=== PATIENT | female | born 1955 | race Caucasian/White ===

== ENCOUNTER 2017-07-15 07:05 | Inpatient (IN) | payer OTHER ==
[~2017-07-15] VITALS: Ht 195.6 cm; Wt 80.5 kg
[2017-07-15] VITALS (7 sets, daily range): BP systolic 107–114; BP diastolic 58–68; PULSE 77–80; RESP 19; TEMP 98.6; Ht 195.6 cm; Wt 80.5 kg
[2017-07-15] MEDS ORDERED: ONDANSETRON 4 MG INJ IV STA (07:08)
[2017-07-15] MEDS ORDERED: HYDROmorphONE 1 MG/ML SYG IV STA ×3 (07:08→11:03)
--- NOTE | 2017-07-15 08:14 | RADRPT ---
PROCEDURE: XR Chest 1 View. CLINICAL INDICATION: Abnormal breath sounds, syncope. TECHNIQUE: AP view of the chest was obtained. COMPARISON: None. FINDINGS: The heart size is within normal limits. Calcified atherosclerosis is noted in the aorta. The lungs are hyperexpanded. No consolidations are identified. No pneumothorax is seen. Scarring is noted at the lung apices. Osseous structures are intact. IMPRESSION: Calcified atherosclerosis in the aorta. Hyperexpanded lungs. Scarring at the lung apices. RPTAT: AA .Cody Corey MD, Date Time Electronically viewed and signed by .Cody Corey MD, on 07/15/2017 08:13 .P/
--- NOTE | 2017-07-15 08:15 | RADRPT ---
PROCEDURE: XR Tibia and Fibula 2 Views. CLINICAL INDICATION: Right lower leg pain and trauma. TECHNIQUE: AP and lateral views of the right tibia and fibula were obtained. COMPARISON: No prior studies are available for comparison. FINDINGS: Mildly displaced fracture through the mid and distal tibial diaphysis is observed. Obliquely orient ed, mildly displaced fracture through the proximal fibular diaphysis is observed. No destructive [place] lesions are identified. Interosseous spaces appear grossly preserved. Soft tissues surrounding the tibia and fibula are unremarkable. IMPRESSION: Mid and distal tibial fracture and proximal fibular fracture. If there is high clinical suspicion for additional traumatic injury, further evaluation with CT shou ld be considered. RPTAT: AA .Cody Corey MD, Date Time Electronically viewed and signed by .Cody Corey MD, MD on 07/15/2017 08:15 .P/
[2017-07-15 08:34] LABS: ABNORMAL IP MESSAGE 1; HEMOGLOBIN 11.7 g/dl (12.0-16.0); MEAN CORPUSCULAR HEMOGLOBIN 27.1 pg (29.0-33.0); MEAN CORPUSCULAR HGB CONC 32.5 g/dl (32.0-37.0); MEAN CORPUSCULAR VOLUME 83.3 fl (82.0-101.0); MEAN PLATELET VOLUME 10.6 fl (7.4-10.4); PLATELET COUNT 249 10^3/UL (140-415); RED BLOOD COUNT 4.32 10^6/ul (4.20-5.40); RED CELL DISTRIBUTION WIDTH 12.7 % (11.5-14.5); WHITE BLOOD COUNT 11.6 10^3/ul (4.8-10.8)
[2017-07-15 08:59] LABS: ANION GAP 19 (8-16); BLOOD UREA NITROGEN 18 mg/dl (7-20); CARBON DIOXIDE 24 mmol/L (21-31); CHLORIDE 102 mmol/L (97-110); CREATININE 0.62 mg/dl (0.44-1.00); GLUCOSE 135 mg/dl (70-220); POTASSIUM 4.1 mmol/L (3.5-5.1); SODIUM 141 mmol/L (135-144)
[2017-07-15 09:29] LABS: TROPONIN-I < 0.012 ng/ml (0.00-0.12)
[2017-07-15] MEDS ORDERED: CALC-277 PO (10:34)
[2017-07-15] MEDS ORDERED: PRAV10TA43 PO (10:35)
[2017-07-15] MEDS ORDERED: RANI150T5 PO (10:35)
[2017-07-15] MEDS ORDERED: LISI-313 PO (10:35)
[2017-07-15] MEDS ORDERED: ASPI-664 PO (10:36)
[2017-07-15] MEDS ORDERED: LETR2.5T PO (10:36)
[2017-07-15] MEDS ORDERED: CHOL10009 PO (10:37)
[2017-07-15] MEDS ORDERED: DULO30CA45 PO (10:37)
[2017-07-15] MEDS ORDERED: ALEN70TA30 PO (10:47)
--- NOTE | 2017-07-15 10:50 | ERA ---
ER Documentation Chief Complaint Date/Time DATE: 07/15/17 TIME: 10:46 Chief Complaint WITNESSED SYNCOPAL EPISODE AND FELL. RIGHT LOWER LEG PAIN WITH DEFORMITY HPI 62-year-old female presents the emergency department after a syncopal episode complaining of right leg pain. Patient was in her usual state of health until this morning at which time she awoke with acute syncopal episode. She had no chest pain or shortness of breath prior to the episode and reported no palpitations. However, her family witnessed her pass out. She fell onto the side of her bed and hurt her right leg. She has been complaining of severe right leg pain since that time. She reports no distal numbness or tingling. I have reviewed the supervisor boat outfitting pre-hospital care. Pre-hospital vital signs were reviewed. Pre-hospital diagnostic tests were reviewed. Upon arrival, patient's main complaint is that of leg pain. ROS All systems reviewed and are negative except as per history of present illness. Medications Home Meds Reported Medications Cholecalciferol (Vitamin D3) 1,000 Unit Capsule, 2000 UNIT PO DAILY, CAP 07/15/17 Duloxetine Hcl* (Cymbalta*) 30 Mg Capsule.dr, 30 MG PO DAILY, CAP 07/15/17 Letrozole* (Letrozole*) 2.5 Mg Tablet, 2.5 MG PO DAILY, TAB 07/15/17 Aspirin (Low Dose Aspirin) 81 Mg Tablet.dr, 81 MG PO DAILY, #30 TAB 07/15/17 Pravastatin Sodium* (Pravastatin Sodium*) 10 Mg Tablet, 10 MG PO HS, TAB 07/15/17 Ranitidine Hcl* (Ranitidine Hcl*) 150 Mg Tablet, 150 MG PO Q12, #60 TAB 07/15/17 Lisinopril* (Lisinopril*) 5 Mg Tablet, 5 MG PO DAILY, #30 TAB 07/15/17 Calcium Carbonate/Vitamin D3 (OYSTER SHELL 500 MG + VIT D TB) 1 Each Tablet, 1 EACH PO BID, TAB 07/15/17 Allergies Allergies: Coded Allergies: No Known Allergy (Unverified , 07/15/17) PMhx/Soc Hx Miscellaneous Medical Probl: Yes (left breast mastectomy. ) Hx Alcohol Use: No Hx Substance Use: No Hx Tobacco Use: No Smoking Status: Never smoker FmHx Noncontributory for chief complaint Physical Exam Vitals Vital Signs Date Time Temp Pulse Resp B/P Pulse Ox O2 Delivery O2 Flow Rate FiO2 07/15/17 09:03 98.6 71 21 105/78 98 Room Air 07/15/17 07:08 98.0 72 21 160/68 98 Physical Exam GENERAL: The patient is well developed and appropriate for usual state of health in no apparent distress HEENT: Pupils equal, round, and reactive to light. EOMI. There is no scleral icterus. NECK: C-spine is soft and supple, there is no meningismus. There is no cervical lymphadenopathy. LUNGS: Clear to auscultation bilaterally. There are no rales, wheezes or rhonchi. HEART:Irregularly irregular rate and rhythm with a murmur over the precordium ABDOMEN: Soft, non-tender, non-distended. There are bowel sounds in all four quadrants. No rebound or guarding. EXTREMITIES: Patient has an obvious deformity about the midshaft right tibia. Skin is intact, compartments are soft and compressible. She is neurovascularly intact. All other extremities appear to be normal. NEURO: The patient moves all four extremities with 5/5 strength. Cranial nerves II - XII are intact. Normal gait. Alert and oriented SKIN: There is no apparent rash or petechiae. HEME/LYMPHATIC: There is no evidence of excessive bruising or lymphedema. PSYCHIATRIC: The patient does not appear anxious or depressed. Result Diagram: 07/15/17 0708 07/15/17 0715 Results 24 hrs Laboratory Tests Test 07/15/17 07:08 07/15/17 07:15 White Blood Count 11.610^3/ul Red Blood Count 4.3210^6/ul Hemoglobin 11.7g/dl Hematocrit 36.0% Mean Corpuscular Volume 83.3fl Mean Corpuscular Hemoglobin 27.1pg Mean Corpuscular Hemoglobin Concent 32.5g/dl Red Cell Distribution Width 12.7% Platelet Count 82769^3/UL Mean Platelet Volume 10.6fl Neutrophils % % Lymphocytes % % Monocytes % % Eosinophils % % Basophils % % Nucleated Red Blood Cells % 0.0/100WBC Neutrophils # (Manual) 4.510^3/ul Lymphocytes # 10^3/ul Monocytes # 10^3/ul Eosinophils # 10^3/ul Basophils # 10^3/ul Nucleated Red Blood Cells # 10^3/ul Sodium Level 141mmol/L Potassium Level 4.1mmol/L Chloride Level 102mmol/L Carbon Dioxide Level 24mmol/L Anion Gap 19 Blood Urea Nitrogen 18mg/dl Creatinine 0.62mg/dl Glucose Level 135mg/dl Calcium Level 10.0mg/dl Troponin I < 0.012ng/ml Current Medications Medications (Trade) Dose Ordered Sig/Romeo Route PRN Reason Start Time Stop Time Status Last Admin Dose Admin Hydromorphone HCl (Dilaudid) 1 mg ONCE STAT IV 07/15/17 07:08 07/15/17 07:12 DC 07/15/17 07:20 Ondansetron HCl (Zofran Inj) 4 mg ONCE STAT IV 07/15/17 07:08 07/15/17 07:12 DC 07/15/17 07:20 Hydromorphone HCl (Dilaudid) 1 mg ONCE STAT IV 07/15/17 08:35 07/15/17 08:36 DC 07/15/17 09:03 Procedures/MDM Patient was taken to a room, seen and evaluated. Comfort measures were initiated. Diagnostic tests were ordered and reviewed. 3 LEAD RHYTHM STRIP: Atrial fibrillation EK lead EKG reviewed by myself: Atrial fibrillation at 120 bpm Left axis deviation Nonspecific ST and T-wave changes without ST elevation Impression: Atrial fibrillation without ST elevation RADIOLOGY: reviewed with the radiologist CONSULTATION: hospitalist was notified for admission, orthopedic consultation was requested REEVALUATION: Procedure: Immobilization/splinting Patient was placed into a posterior molded long leg splint. Patient was neurovascularly intact after immobilization. After mobilization and pain control, patient seemed much improved. She remained hemodynamically stable. However, she remained in need of cardiac monitoring and therefore did not feel stable for transfer MEDICAL DECISION MAKIN-year-old female presents the emergency department after a syncopal episode. Given the patient's atrial fibrillation, I am concerned that this may represent cardiogenic syncope. Patient will require admission. Patient does not appear to be acutely ischemic at this time. From a trauma standpoint, patient has evidence of a midshaft tibia fracture that has been immobilized. Orthopedic consultation has been requested and this may be require operative management. Patient remains neurovascularly intact and this is a closed injury. Fortunately, I see no indication of other traumatic injury. At this time, patient will be admitted. Departure Diagnosis: Primary Impression: Syncope Additional Impression: Tibia fracture Condition: CALEB Dela Cruz Jul 15, 2017 10:50
[2017-07-15 11:55] LABS: LYMPHOCYTES # 6.1 10^3/ul (0.8-2.9); MONOCYTE # 0.7 10^3/ul (0.3-0.9); MONOCYTES % (M) 6 % (0-11)
[2017-07-15 11:56] LABS: BURR CELLS FEW
[2017-07-15] MEDS ORDERED: morphine 4 MG/ML VIAL IV PRN (13:30)
[2017-07-15] MEDS: morphine 4 MG/ML VIAL IV PRN ×2 (13:46→17:51)
[2017-07-15] MEDS ORDERED: ACETAMINOPHEN 325 MG TAB PO PRN (14:30)
[2017-07-15] MEDS ORDERED: NACL 0.9% 3 ML SYG IV SCH (14:30)
[2017-07-15] MEDS ORDERED: ONDANSETRON 4 MG INJ IV PRN (14:30)
[2017-07-15] MEDS ORDERED: morphine 2 MG INJ IV PRN (14:30)
[2017-07-15] MEDS: DULOXETINE 30 MG CAP DR PO SCH (16:10)
[2017-07-15] MEDS: CHOLECALCIFEROL 1,000 UNIT TAB PO SCH (16:50)
[2017-07-15] MEDS: ASPIRIN (EC) 81 MG TAB PO SCH (16:50)
[2017-07-15] MEDS: LISINOPRIL 5 MG TAB PO SCH (16:50)
--- NOTE | 2017-07-15 16:51 | HP ---
Date/Time of Note Date/Time of Note DATE: 07/15/17 TIME: 16:44 Assessment/Plan VTE Prophylaxis VTE Prophylaxis Intervention: SCD's Lines/Catheters IV Catheter Type (from Nrsg): Saline Lock Assessment/Plan Assessment/Plan 1. Right tibia and fibula fracture: Status post fall -Patient was evaluated by Dr. Finley in the ER and was cleared. Both patient and family requesting a second opinion with another orthopedic surgeon -Continue pain management 2. Hypertension: Blood pressure within goal -PMH is adjustment as needed 3. History of dyslipidemia -Continue home med 4. History of breast cancer, status post mastectomy -Continue hormonal therapy HPI/ROS Admit Date/Time Admit Date/Time Jul 15, 2017 at 13:27 Hx of Present Illness This is a 62-year-old female with a history of hypertension, dyslipidemia, osteoporosis and breast cancer status post mastectomy who presented to the emergency department complaining of right lower extremity pain status post fall. She is accompanied by a family member at the bedside who also provided history. She said she had been having pain on her lower extremities which she actually states is a result of claudication. While she was walking to the bathroom, she fell pain on her lower extremities and stated that the right leg was almost frozen. She also felt lightheaded and fell to the floor. She stated that she was unconscious for some time. Denied hitting her head. She actually said the reason why she syncopized was a result of the pain on her leg as opposed to the lightheadedness. Denied chest pain, palpitations, shortness of breath, fever, chills, nausea or vomiting. When she presented to the ER, right lower extremity x-ray shows need in the distal tibia and proximal fibula fracture. Chest x-ray showed hyperexpanded lungs. Vitals were stable. Labs shows a WBC of 11.6 otherwise CBC and BMP were within acceptable range. . PMH/Family/Social Past Medical History Medical History: high cholesterol, hypertension, other (Breast cancer) Past Surgical History Past Surgical Hx: appendectomy, other (Mastectomy, hernia repair and tonsillectomy) Social History Alcohol Use: none Smoking Status: Never smoker Drug Use: none Exam/Review of Systems Vital Signs Vitals Vital Signs Date Time Temp Pulse Resp B/P Pulse Ox O2 Delivery O2 Flow Rate FiO2 07/15/17 16:06 78 07/15/17 15:54 98.2 19 114/68 98 07/15/17 14:04 Nasal Cannula 2.0 Exam Constitutional: other (In the mild distress due to pain) Head: atraumatic, normocephalic Eyes: EOMI, PERRL Respiratory: clear to auscultation, normal air movement Cardiovascular: nl pulses, regular rate and rhythm Gastrointestinal: non-tender, soft Extremities: other (Right lower extremity is covered. Sensations are intact in her toes) Labs Result Diagram: 07/15/17 0708 07/15/17 0715 Medications Medications Current Medications Morphine Sulfate (morphine) 3 mg Q4H PRN IV PAIN Last administered on t 13:46; Admin Dose 3 MG; Start 07/15/17 at 13:40 Ondansetron HCl (Zofran Inj) 4 mg Q6H PRN IV NAUSEA AND/OR VOMITING; Start at 14:30 Acetaminophen (Tylenol Tab) 650 mg Q6H PRN PO PAIN LEVEL 1-3 OR FEVER; Start at 14:30 Aspirin (Halfprin) 81 mg DAILY PO ; Start 07/15/17 at 15:00 Cholecalciferol (Vitamin D) 2,000 unit DAILY PO ; Start 07/15/17 at 15:00 Duloxetine HCl (Cymbalta) 30 mg DAILY PO ; Start 07/15/17 at 15:00 Letrozole (Femara) 2.5 mg DAILY PO ; Start 07/15/17 at 16:00 Lisinopril (Zestril) 5 mg DAILY PO ; Start 07/15/17 at 15:00 Ranitidine HCl (Zantac) 150 mg Q12 PO ; Start 07/15/17 at 21:00 Atorvastatin Calcium (Lipitor) 10 mg DAILY@21 PO ; Start 07/15/17 at 21:00 LIZZ JEFF MD Jul 15, 2017 16:51
[2017-07-15] MEDS: LETROZOLE 2.5 MG TAB PO SCH (17:01)
--- NOTE | 2017-07-15 17:24 | RADRPT ---
PROCEDURE: CT Brain without contrast. CLINICAL INDICATION: SYNCOPE, FALL TECHNIQUE: A CT of the brain was performed on a multidetector CT scanner utilizing axial imaging f rom the skull base through the vertex without IV contrast. Multiplanar reformatted images were made . Images were reviewed on a PACS workstation. The CTDIvol is 40 mGy and the DLP is 768 mGycm. COMPARISON: None FINDINGS: There is no intracranial hemorrhage, mass effect, or midline shift. No extra-axial fluid collection is seen. The ventricles and sulci are normal in size and configuration. The density of the brain is normal, and the franklin white matter differentiation appears well-preserved. The visualized paranasal sinuses and osseous structures are grossly unremarkable. IMPRESSION: 1. No evidence of acute intracranial pathology. 2. The brain is normal in appearance. .Tony Ivey MD, MD Date Time Electronically viewed and signed by .Tony Ivey MD, on 07/15/2017 17:24 .A/
[2017-07-15] MEDS ORDERED: NON-FORMULARY/PATIENT OWN MED (Pravastatin Sodium* 10 MG) PO SCH (21:00)
[2017-07-15] MEDS: HYDROmorphONE 1 MG/ML SYG IV PRN (21:19)
[2017-07-15] MEDS: RANITIDINE 150 MG TAB PO SCH (21:19)
[2017-07-15] MEDS: ATORVASTATIN 10 MG TAB PO SCH (21:19)
[2017-07-16] VITALS (13 sets, daily range): BP systolic 100–112; BP diastolic 56–63; PULSE 65–74; RESP 18–20
[2017-07-16] MEDS: HYDROmorphONE 1 MG/ML SYG IV PRN ×4 (02:16→18:38)
[2017-07-16 07:02] LABS: BASOPHILS % 0.1 % (0.0-2.0); EOSINOPHILS % 0.3 % (0.0-7.0); HEMATOCRIT 35.7 % (37.0-47.0); HEMOGLOBIN 11.2 g/dl (12.0-16.0); LYMPHOCYTES # 2.1 10^3/ul (0.8-2.9); LYMPHOCYTES % 28.3 % (15.0-51.0); MEAN CORPUSCULAR HEMOGLOBIN 26.2 pg (29.0-33.0); MEAN CORPUSCULAR HGB CONC 31.4 g/dl (32.0-37.0); MEAN CORPUSCULAR VOLUME 83.6 fl (82.0-101.0); MEAN PLATELET VOLUME 10.3 fl (7.4-10.4); MONOCYTE # 0.6 10^3/ul (0.3-0.9); MONOCYTES % 7.8 % (0.0-11.0); NEUTROPHILS % 63.2 % (39.0-77.0); PLATELET COUNT 206 10^3/UL (140-415); RED BLOOD COUNT 4.27 10^6/ul (4.20-5.40); WHITE BLOOD COUNT 7.3 10^3/ul (4.8-10.8)
[2017-07-16 07:53] LABS: CALCIUM 9.4 mg/dl (8.4-10.2); CREATININE 0.63 mg/dl (0.44-1.00); POTASSIUM 4.6 mmol/L (3.5-5.1)
[2017-07-16 07:58] LABS: ALBUMIN/GLOBULIN RATIO 1.48; BILIRUBIN,INDIRECT 0.3 mg/dl (0-1.1); BILIRUBIN,TOTAL 0.3 mg/dl (0.2-1.3); CALCIUM 9.5 mg/dl (8.4-10.2); CHOL/HDL RATIO 3.5 RATIO; CREATININE 0.63 mg/dl (0.44-1.00); POTASSIUM 4.9 mmol/L (3.5-5.1); TOTAL PROTEIN 6.7 g/dl (6.1-8.1)
--- NOTE | 2017-07-16 08:37 | RADRPT ---
PROCEDURE: US Carotids. CLINICAL INDICATION: Hypertension, syncope TECHNIQUE: Multiple sonographic of the carotid arteries were obtained utilizing franklin scale imaging . Color and Doppler imaging was performed. The images were reviewed on a PACS workstation. COMPARISON: No prior studies are available for comparison. FINDINGS: LocationRightLeft CCA74 cm/sec71 cm/sec Prox ICA77 cm/byg307 cm/sec Mid ICA76 cm/tzy063 cm/sec Dist ICA62 cm/pus186 cm/sec ECA79 cm/sec87 cm/sec ICA/CCA1.02.3 Antegrade flow is seen within the vertebral arteries bilaterally. Mild atherosclerotic plaque is see n within the bilateral common and internal carotid arteries. IMPRESSION: 1. Elevated systolic velocities are identified within the left mid/distal ICA, consistent with 50-6 9% stenosis in this area by S R U criteria. 2. There is no evidence for hemodynamically significant stenosis or occlusion on the right. 3. Antegrade flow seen within the vertebral arteries bilaterally. Validated velocity measurements with angiographic measurements, velocity criteria are extrapolated f rom diameter data as defined by the Society of Radiologists in Ultrasound Consensus Conference (Radi ology 2003; 229; 340-346). This study does indirectly reference the measurement of the distal ICA d iameter as the denominator for stenosis measurement. RPTAT: PP .Humza Carver MD, Date Time Electronically viewed and signed by .Humza Carver MD, on 07/16/2017 08:37 .R/
[2017-07-16 10:26] LABS: THYROID STIMULATING HORMONE 0.735 MIU/L (0.465-4.680)
[2017-07-16] MEDS: DULOXETINE 30 MG CAP DR PO SCH (11:22)
[2017-07-16] MEDS: ASPIRIN (EC) 81 MG TAB PO SCH (11:23)
[2017-07-16] MEDS: CHOLECALCIFEROL 1,000 UNIT TAB PO SCH (11:23)
[2017-07-16] MEDS: RANITIDINE 150 MG TAB PO SCH ×2 (11:25→21:08)
[2017-07-16] MEDS: LETROZOLE 2.5 MG TAB PO SCH (11:25)
[2017-07-16] MEDS: LISINOPRIL 5 MG TAB PO SCH (11:26)
[2017-07-16] MEDS ORDERED: HYDROCODONE/APAP (5/325) TAB PO PRN (11:30)
--- NOTE | 2017-07-16 11:44 | PN ---
Date/Time of Note Date/Time of Note DATE: 07/16/17 TIME: 11:39 Assessment/Plan VTE Prophylaxis VTE Prophylaxis Intervention: heparin Lines/Catheters IV Catheter Type (from Nrsg): Saline Lock Urinary Cath still in place: Yes Reason Cath still needed: other (indicate) (s/p Fall with Tibia fibula fracture ) Assessment/Plan Assessment/Plan 1. Right tibia and fibula fracture: Status post fall -Patient was evaluated by Dr. Finley in the ER and was cleared. Both patient and family requesting a second opinion with another orthopedic surgeon- for that orthopedic Surgery has been consulted -Continue pain management- pain not controlled with current regimen, will increase dialudid to 1 mg Q 4hr, add norco 5/325 Q 6 hr prn moderate pain, add robaxin 500mg BID for muslce relaxant 2. Hypertension: Blood pressure within goal -PMH is adjustment as needed 3. History of dyslipidemia -Continue home med 4. History of breast cancer, status post mastectomy -Continue hormonal therapy DVT prophylaxis: Heparin Subjective 24 Hr Interval Summary Free Text/Dictation c/o pain not controlled with current regimen, Awaiting second opinion of orhtopedic, BP controlled Exam/Review of Systems Vital Signs Vitals Vital Signs Date Time Temp Pulse Resp B/P Pulse Ox O2 Delivery O2 Flow Rate FiO2 07/16/17 11:33 98.2 68 19 112/61 98 07/15/17 20:00 Nasal Cannula 2.0 Intake and Output 07/15/17 07/15/17 07/16/17 15:00 23:00 07:00 Intake Total 150 ml 100 ml Output Total 100 ml 600 ml Balance 50 ml -500 ml Exam Constitutional: other (In the mild distress due to pain) Head: atraumatic, normocephalic Eyes: EOMI, PERRL Respiratory: clear to auscultation, normal air movement Cardiovascular: nl pulses, regular rate and rhythm Gastrointestinal: non-tender, soft Extremities: other (Right lower extremity is covered. Sensations are intact in her toes) Results Result Diagram: 07/16/17 0538 07/16/17 0538 Results 24 hrs Laboratory Tests Test 07/15/17 15:50 07/15/17 20:30 07/16/17 05:38 Troponin I < 0.012 < 0.012 White Blood Count 7.3 # Red Blood Count 4.27 Hemoglobin 11.2 L Hematocrit 35.7 L Mean Corpuscular Volume 83.6 Mean Corpuscular Hemoglobin 26.2 L Mean Corpuscular Hemoglobin Concent 31.4 L Red Cell Distribution Width 13.0 Platelet Count 206 Mean Platelet Volume 10.3 Neutrophils % 63.2 Lymphocytes % 28.3 Monocytes % 7.8 Eosinophils % 0.3 Basophils % 0.1 Nucleated Red Blood Cells % 0.0 Neutrophils # (Manual) 4.6 Lymphocytes # 2.1 Monocytes # 0.6 Eosinophils # 0.0 Basophils # 0.0 Nucleated Red Blood Cells # 0.0 Sodium Level 142 Potassium Level 4.9 Chloride Level 99 Carbon Dioxide Level 27 Anion Gap 21 H Blood Urea Nitrogen 17 Creatinine 0.63 Glucose Level 118 Hemoglobin A1c 6.0 H Calcium Level 9.5 Total Bilirubin 0.3 Direct Bilirubin 0.00 Indirect Bilirubin 0.3 Aspartate Amino Transf (AST/SGOT) 40 Alanine Aminotransferase (ALT/SGPT) 78 H Alkaline Phosphatase 83 Total Protein 6.7 Albumin 4.0 Globulin 2.70 Albumin/Globulin Ratio 1.48 Triglycerides Level 85 Cholesterol Level 204 H LDL Cholesterol, Calculated 129 HDL Cholesterol 58 Cholesterol/HDL Ratio 3.5 Thyroid Stimulating Hormone (TSH) 0.735 Medications Medications Current Medications Ondansetron HCl (Zofran Inj) 4 mg Q6H PRN IV NAUSEA AND/OR VOMITING; Start at 14:30 Acetaminophen (Tylenol Tab) 650 mg Q6H PRN PO PAIN LEVEL 1-3 OR FEVER; Start at 14:30 Aspirin (Halfprin) 81 mg DAILY PO Last administered on 07/16/17 11:23; Admin Dose 81 MG; Start 07/15/17 at 15:00 Cholecalciferol (Vitamin D) 2,000 unit DAILY PO Last administered on 07/16/17 11:23; Admin Dose 2,000 UNIT; Start 07/15/17 at 15:00 Duloxetine HCl (Cymbalta) 30 mg DAILY PO Last administered on 07/16/17 11:22; Admin Dose 30 MG; Start 07/15/17 at 15:00 Letrozole (Femara) 2.5 mg DAILY PO Last administered on 07/16/17 11:25; Admin Dose 2.5 MG; Start 07/15/17 at 16:00 Lisinopril (Zestril) 5 mg DAILY PO Last administered on 07/16/17 11:26; Admin Dose 5 MG; Start 07/15/17 at 15:00 Ranitidine HCl (Zantac) 150 mg Q12 PO Last administered on 07/16/17 11:25; Admin Dose 150 MG; Start 07/15/17 at 21:00 Atorvastatin Calcium (Lipitor) 10 mg DAILY@21 PO Last administered on 21:19; Admin Dose 10 MG; Start 07/15/17 at 21:00 Hydromorphone HCl (Dilaudid) 1 mg Q4H PRN IV PAIN; Start 07/16/17 at 12:30 Acetaminophen/ Hydrocodone Bitart (Bozman (5/325)) 1 tab Q6H PRN PO Pain Last administered on 07/16/17 11:38; Admin Dose 1 TAB; Start 07/16/17 at 11:30 Methocarbamol (Robaxin) 500 mg BID PO ; Start 07/16/17 at 12:00; Stop 07/18/17 at 11:59 ABBI CARTER MD Jul 16, 2017 11:44
[2017-07-16] MEDS ORDERED: METHOCARBAMOL 500 MG TAB PO SCH (12:00)
[2017-07-16] MEDS ORDERED: METOCLOPRAMIDE 10 MG INJ IV ONE (12:00)
[2017-07-16] MEDS ORDERED: D5W-0.45 NACL + KCL 10 MEQ 1,000 ML IV SCH (13:00)
[2017-07-16] MEDS: HEPARIN 5,000 UNIT/0.5 ML VIAL SC SCH ×2 (13:01→21:16)
--- NOTE | 2017-07-16 14:57 | CONS ---
DATE OF ADMISSION: 07/15/2017 DATE OF CONSULTATION: 07/16/2017 HISTORY OF PRESENT ILLNESS: The patient is a 62-year-old female, who was admitted on the June,, when she came to the emergency room complaining of pain, swelling, and deformity involving her right leg. According to the patient, she was experiencing some pain in her right leg, possibly from claudication, and she felt a pain while she was on her way to her bathroom and fell. She denies any head injury. However, she claims that she was unconscious for a while. Following the incident, she was having severe pain and swelling involving her right leg, and she was brought into the emergency room She is known to have breast cancer, which was treated with mastectomy, and has been doing okay without any recurrence. She is also known to have history of hypertension and dyslipidemia and osteoporosis. PHYSICAL EXAMINATION: GENERAL APPEARANCE: My examination revealed a 62-year-old female who was not in any acute distress. EXTREMITIES: Her right lower extremity was immobilized in a long leg posterior splint, and examination through the splint revealed a tenderness and swelling involving the right leg. There was a tenderness over the distal shaft of the right leg, right tibia. There is no evidence of acute neurovascular compromise at this time. DIAGNOSTIC DATA: X-rays of the right leg revealed a spiral fracture involving the distal shaft of the right tibia with some of the fracture line extending downward. DIAGNOSTIC IMPRESSION: Spiral fracture of the distal shaft of the right tibia. PLAN: Recommendation for treatment is ORIF of the fracture of the right tibia, probably utilizing intramedullary nailing technique. This patient was seen by me for a second opinion. I recommended the patient to have the surgery done as recommended. Dictated By: In Sandra Campbell MD /main/[facility] /Document#: [id number]
--- NOTE | 2017-07-16 15:21 | CONS ---
DATE OF ADMISSION: 07/15/2017 DATE OF CONSULTATION: 07/16/2017 CHIEF COMPLAINT: Right leg pain. HISTORY OF PRESENT ILLNESS: This is a 62-year-old female with multiple medical comorbidities who had a syncopal episode at home and fell. She is complaining of pain in the right leg. She was unable to ambulate. She was brought by EMS to the emergency department. She denies any chest pain prior to the fall. She has no other complaints. PAST MEDICAL HISTORY: Dyslipidemia, hypertension, osteoporosis, breast cancer. MEDICATIONS: Cymbalta, Zestril, Lipitor. PAST SURGICAL HISTORY: Appendectomy and mastectomy, hernia repair, tonsillectomy. SOCIAL HISTORY: Lives with her spouse. Denies tobacco, alcohol, or drug use. FAMILY HISTORY: Noncontributory. ALLERGIES: NO KNOWN DRUG ALLERGIES. REVIEW OF SYSTEMS: Negative except per HPI. PHYSICAL EXAMINATION: VITAL SIGNS: Temperature 98.2, blood pressure 114/68, pulse 78, respiratory rate 19. GENERAL: Patient is in no acute distress. She is resting comfortably in bed. EXTREMITIES: Right lower extremity there are no open wounds. There is deformity of the right leg. She has a palpable dorsalis pedis and posterior tibialis pulses. She is tender to palpation over the midshaft of the tibia. IMAGING: X-rays right tibia and fibula; there is a spiral midshaft tibia fracture with displacement. There is a fracture of the proximal fibula. IMPRESSION: A 62-year-old female who had syncope with a right midshaft tibia fracture. PLAN: The patient was placed in a short-leg splint. She will be nonweightbearing on the right lower extremity. I discussed treatment options with the patient and her family. I discussed nonoperative treatment including long-leg casting versus operative treatment including intramedullary nailing. I discussed the risks associated with surgery, which include but are not limited to, infection, deep venous thrombosis, pulmonary embolism, knee pain, malunion, nonunion, need for revision surgery, heart attack, stroke, need for blood transfusion, risks associated with anesthesia and even . The patient and family would like to think about treatment options. All questions were answered to their satisfaction. Dictated By: Viji Ron MD /main/[facility] /Document#: [id number]
[2017-07-16] MEDS: ATORVASTATIN 10 MG TAB PO SCH (21:08)
[2017-07-17] VITALS (14 sets, daily range): BP systolic 110–130; BP diastolic 64–72; PULSE 61–85; RESP 16–19
[2017-07-17] MEDS: HYDROmorphONE 1 MG/ML SYG IV PRN ×6 (00:06→18:40)
[2017-07-17] MEDS: D5W-0.45 NACL + KCL 20 MEQ 1,000 ML IV SCH ×2 (00:06→10:00)
[2017-07-17 06:26] LABS: BASOPHILS % 0.1 % (0.0-2.0); EOSINOPHILS % 0.6 % (0.0-7.0); HEMATOCRIT 31.3 % (37.0-47.0); HEMOGLOBIN 9.9 g/dl (12.0-16.0); LYMPHOCYTES # 2.5 10^3/ul (0.8-2.9); LYMPHOCYTES % 35.3 % (15.0-51.0); MEAN CORPUSCULAR HEMOGLOBIN 26.5 pg (29.0-33.0); MEAN CORPUSCULAR HGB CONC 31.6 g/dl (32.0-37.0); MEAN CORPUSCULAR VOLUME 83.9 fl (82.0-101.0); MEAN PLATELET VOLUME 10.3 fl (7.4-10.4); MONOCYTE # 0.7 10^3/ul (0.3-0.9); MONOCYTES % 9.4 % (0.0-11.0); NEUTROPHILS % 54.2 % (39.0-77.0); PLATELET COUNT 180 10^3/UL (140-415); RED BLOOD COUNT 3.73 10^6/ul (4.20-5.40); RED CELL DISTRIBUTION WIDTH 12.7 % (11.5-14.5)
[2017-07-17 06:29] LABS: INR 1.02; PARTIAL THROMBOPLASTIN TIME 25.8 Sec (25.0-35.0); PROTIME 13.4 Sec (12.2-14.2)
[2017-07-17 06:59] LABS: ALBUMIN 3.5 g/dl (3.3-4.9); ALBUMIN/GLOBULIN RATIO 1.2; BILIRUBIN,INDIRECT 0.2 mg/dl (0-1.1); BILIRUBIN,TOTAL 0.2 mg/dl (0.2-1.3); CALCIUM 9.1 mg/dl (8.4-10.2); CREATININE 0.52 mg/dl (0.44-1.00); POTASSIUM 4.3 mmol/L (3.5-5.1); TOTAL PROTEIN 6.4 g/dl (6.1-8.1)
[2017-07-17] MEDS: ASPIRIN (EC) 81 MG TAB PO SCH (09:00)
[2017-07-17] MEDS: DULOXETINE 30 MG CAP DR PO SCH (09:00)
[2017-07-17] MEDS: RANITIDINE 150 MG TAB PO SCH ×2 (09:00→21:00)
[2017-07-17] MEDS: CHOLECALCIFEROL 1,000 UNIT TAB PO SCH (09:00)
[2017-07-17] MEDS: LISINOPRIL 5 MG TAB PO SCH (09:00)
[2017-07-17] MEDS: LETROZOLE 2.5 MG TAB PO SCH (09:00)
[2017-07-17] MEDS: HEPARIN 5,000 UNIT/0.5 ML VIAL SC SCH (09:00)
[2017-07-17] MEDS ORDERED: CEFAZOLIN 1 GM/50 ML (PMX) 50 ML IVPB ONE (12:00)
--- NOTE | 2017-07-17 13:06 | RADRPT ---
Echocardiogram Report Patient Name: AUSTIN STILES Gender: Female Date: 1955 Study Date: 16-Jul-2017 Turbine Engineer: Hanna Agustin [facility] Location: 521 Ref. Physician: LIZZ JEFF Quality: Good Procedures: Transthoracic echocardiogram with complete 2D, M-Mode, and doppler examination. Indications: Syncope. 2D/M Mode Doppler Measurement Value Normal Ranges Measurement Value Normal Ranges LVIDd 2D 4.1 3.5 - 5.6 cm AV Peak Tay 1.2 m/sec LVIDs 2D 2.1 2.1 - 4.1 cm AV Peak PG 6.0 mmHg FS 2D 47.5 % LVOT Peak Tay 1.0 m/sec LVPWd 2D 0.9 0.6 - 1.1 cm LVOT Peak PG 4.0 mmHg IVSd 2D 0.9 0.6 - 1.1 cm MV E Peak Tay 0.8 m/sec IVS/LVPW 2D 1.0 MV A Peak Tay 1.0 m/sec AoR Diam 2D 3.0 2.0 - 3.7 cm MV E/A 0.8 LA/Ao 2D 1 0 - 1 MV Decel Time 215 msec EDV 2D 67.9 cm3 MV E/A 0.8 ESV 2D 9.8 cm3 TR Peak Tay 2.4 m/sec LA Dimen 2D 3.1 2.3 - 4.0 cm TR Peak PG 23.0 mmHg RVSP 26.0 mmHg Findings Left Ventricle: Normal left ventricular systolic function. Normal left ventricular cavity size. Normal left ventricular wall thickness. Ejection fraction is visually estimated at 60 %. Tissue Doppler/Mitral Doppler indices are consistent with impaired relaxation (Stage I diastolic dysfunction). Right Ventricle: Normal right ventricular size. Normal right ventricular systolic function. Left Atrium: The left atrium is normal in size. Right Atrium: The right atrium is normal in size. Mitral Valve: Normal appearance and function of the mitral valve with trace physiologic regurgitation. Aortic Valve: Normal appearance of the aortic valve. No significant aortic stenosis or insufficiency. Tricuspid Valve: Normal appearance of the tricuspid valve. Estimated peak PA systolic pressure 26 mmHg. There is trace tricuspid regurgitation. Pulmonic Valve: Normal pulmonic valve appearance. Pericardium: Normal pericardium with no significant pericardial effusion. Aorta: Normal aortic root. IVC: Normal size and normal respiratory collapse consistent with normal right atrial pressure. Conclusions 1.Normal left ventricular systolic function. Normal left ventricular cavity size. Normal left ventricular wall thickness. Ejection fraction is visually estimated at 60 %. Tissue Doppler/Mitral Doppler indices are consistent with impaired relaxation (Stage I diastolic dysfunction). 2.Normal appearance and function of the mitral valve with trace physiologic regurgitation. 3.Normal appearance of the tricuspid valve. Estimated peak PA systolic pressure 26 mmHg. There is trace tricuspid regurgitation. Electronically Signed By: Julio Yusuf 17-Jul-2017 13:05:41 -0700 Patient Name: AUSTIN STILES Study Date: 16-Jul-2017 [id number]
[2017-07-17] MEDS ORDERED: BISACODYL 10 MG SUPP PR PRN (15:00)
--- NOTE | 2017-07-17 15:06 | PN ---
Date/Time of Note Date/Time of Note DATE: 07/17/17 TIME: 15:00 Assessment/Plan VTE Prophylaxis VTE Prophylaxis Intervention: contraindicated VTE Contraindication Reason: blood coagulation disorder, bleeding (Risk) Lines/Catheters IV Catheter Type (from Nrs): Saline Lock Urinary Cath still in place: Yes Reason Cath still needed: skin wounds contaminated by urine Assessment/Plan Chief Complaint/Hosp Course Subjective: Moderate to severe pain. No dyspnea chest pain fever. at bedside. Objective: Sinus rhythm for the last 48 hours on monitor. No pallor. Regular no murmur rub gallop Clear Benign Rt lwr ext dressed/ braced Neuro: Nonfocal Assessment and plan 1. Rt tib-fib closed acute fracture. Stable, for ORIF. Low/intermediate periop risk. Risk-benefit ratio weighs in favor of proceeding forward directly to surgery. cxr/2D/EKG noted. 2. Mechanical fall nonweightbearing: Acute rehab versus snf 3. DJD/osteoporosis 4. Paroxysmal atrial fibrillation? tsh ok. chadsvas -1 5. Mild/mod carotid stenosis; asymptomatic 6. Chronic hypertension/dyslipidemia. EF =60% 10. Anemia possibly of chronic disease. No acute blood loss 11. Possible syncope. BP/EKG/echo/neuro exam noncontributory. 12. History of breast cancer. Problems: Exam/Review of Systems Vital Signs Vitals Vital Signs Date Time Temp Pulse Resp B/P Pulse Ox O2 Delivery O2 Flow Rate FiO2 07/17/17 12:01 71 07/17/17 11:12 98.6 16 115/66 99 07/16/17 20:00 Nasal Cannula 2.0 Intake and Output 07/16/17 07/16/17 07/17/17 15:00 23:00 07:00 Intake Total 1110 ml 1500 ml Output Total 1000 ml 1200 ml Balance 110 ml 300 ml Results Result Diagram: 07/17/17 0545 07/17/17 0524 Results 24 hrs Laboratory Tests Test 07/17/17 05:24 07/17/17 05:45 Sodium Level 134 L Potassium Level 4.3 Chloride Level 97 Carbon Dioxide Level 28 Anion Gap 13 # Blood Urea Nitrogen 17 Creatinine 0.52 Glucose Level 128 Calcium Level 9.1 Total Bilirubin 0.2 Direct Bilirubin 0.00 Indirect Bilirubin 0.2 Aspartate Amino Transf (AST/SGOT) 34 Alanine Aminotransferase (ALT/SGPT) 68 Alkaline Phosphatase 73 Total Protein 6.4 Albumin 3.5 Globulin 2.90 Albumin/Globulin Ratio 1.20 White Blood Count 7.0 Red Blood Count 3.73 L Hemoglobin 9.9 L Hematocrit 31.3 L Mean Corpuscular Volume 83.9 Mean Corpuscular Hemoglobin 26.5 L Mean Corpuscular Hemoglobin Concent 31.6 L Red Cell Distribution Width 12.7 Platelet Count 180 Mean Platelet Volume 10.3 Neutrophils % 54.2 Lymphocytes % 35.3 Monocytes % 9.4 Eosinophils % 0.6 Basophils % 0.1 Nucleated Red Blood Cells % 0.0 Neutrophils # (Manual) 3.8 Lymphocytes # 2.5 Monocytes # 0.7 Eosinophils # 0.0 Basophils # 0.0 Nucleated Red Blood Cells # 0.0 Prothrombin Time 13.4 Prothrombin Time Ratio 1.0 INR International Normalized Ratio 1.02 Activated Partial Thromboplast Time 25.8 Medications Medications Current Medications Ondansetron HCl (Zofran Inj) 4 mg Q6H PRN IV NAUSEA AND/OR VOMITING; Start at 14:30 Acetaminophen (Tylenol Tab) 650 mg Q6H PRN PO PAIN LEVEL 1-3 OR FEVER; Start at 14:30 Aspirin (Halfprin) 81 mg DAILY PO Last administered on 07/16/17 11:23; Admin Dose 81 MG; Start 07/15/17 at 15:00 Cholecalciferol (Vitamin D) 2,000 unit DAILY PO Last administered on 07/16/17 11:23; Admin Dose 2,000 UNIT; Start 07/15/17 at 15:00 Duloxetine HCl (Cymbalta) 30 mg DAILY PO Last administered on 07/16/17 11:22; Admin Dose 30 MG; Start 07/15/17 at 15:00 Letrozole (Femara) 2.5 mg DAILY PO Last administered on 07/16/17 11:25; Admin Dose 2.5 MG; Start 07/15/17 at 16:00 Lisinopril (Zestril) 5 mg DAILY PO Last administered on 07/16/17 11:26; Admin Dose 5 MG; Start 07/15/17 at 15:00 Ranitidine HCl (Zantac) 150 mg Q12 PO Last administered on 07/16/17 21:08; Admin Dose 150 MG; Start 07/15/17 at 21:00 Atorvastatin Calcium (Lipitor) 10 mg DAILY@21 PO Last administered on 21:08; Admin Dose 10 MG; Start 07/15/17 at 21:00 Hydromorphone HCl (Dilaudid) 1 mg Q4H PRN IV PAIN Last administered on 10:21; Admin Dose 1 MG; Start 07/16/17 at 12:30 Heparin Sodium (Porcine) 5000 unit 5,000 unit BID SC Last administered on 21:16; Admin Dose 5,000 UNIT; Start 07/16/17 at 12:00 Potassium Chloride/Dextrose/ Sod Cl (D5-1/2ns + KCl 20 Meq) 1,000 ml @ 100 mls/ hr Q10H IV Last administered on 07/17/17 10:00; Admin Dose 100 MLS/HR; Start 07/17/17 at 00:00 Hydromorphone HCl (Dilaudid) 1 mg Q2 PRN IV PAIN Last administered on 14:08; Admin Dose 1 MG; Start 07/17/17 at 14:00 INEZ DOWNEY MD Jul 17, 2017 15:06
[2017-07-17] MEDS: ATORVASTATIN 10 MG TAB PO SCH (21:00)
[2017-07-17] MEDS ORDERED: POLYMYXIN/BACITRACIN 1L IRRIG ONE (21:02)
[2017-07-17] MEDS ORDERED: PROPOFOL 20 ML ONE (21:04)
[2017-07-17] MEDS ORDERED: FENTAnyl 50 MCG/ML VIAL ONE (21:06)
[2017-07-17] MEDS ORDERED: MIDAZOLAM 1 MG/ML 2 ML INJ ONE (21:06)
[2017-07-17] MEDS ORDERED: LIDOCAINE 2% (SDV) 5 ML INJ ONE (21:08)
[2017-07-17] MEDS ORDERED: ROCURONIUM 50 MG INJ ONE (21:08)
--- NOTE | 2017-07-17 21:20 | HPN ---
Date/Time of Note Date/Time of Note DATE: 07/17/17 TIME: 21:19 Interval H&P Admission Note Pt. seen H&P reviewed: No system changes LITZY WHITAKER MD Jul 17, 2017 21:20
[2017-07-17] MEDS ORDERED: PHENYLephrine (100 MCG/ML) 5ML SYG ONE (21:53)
[2017-07-17] MEDS ORDERED: morphine 10 MG INJ ONE (21:54)
[2017-07-17] MEDS ORDERED: DEXAMETHASONE 4 MG/ML 1 ML INJ ONE (23:24)
[2017-07-17] MEDS ORDERED: ONDANSETRON 4 MG INJ ONE (23:25)
[2017-07-17] MEDS ORDERED: DIPHENHYDRAMINE 50 MG INJ IV PRN (23:30)
[2017-07-17] MEDS ORDERED: FENTAnyl 50 MCG/ML VIAL IV PRN ×3 (23:30)
[2017-07-17] MEDS ORDERED: MEPERIDINE 25 MG INJ IV PRN (23:30)
[2017-07-17] MEDS ORDERED: ONDANSETRON 4 MG INJ IV PRN (23:30)
[2017-07-17] MEDS ORDERED: KETOROLAC 30 MG INJ IV PRN (23:30)
[2017-07-17] MEDS ORDERED: METOCLOPRAMIDE 10 MG INJ IV PRN (23:30)
[2017-07-17] MEDS ORDERED: LABETALOL HCL 20MG INJ IV PRN (23:30)
[2017-07-17] MEDS ORDERED: hydrALAzine 20 MG INJ IV PRN (23:30)
[2017-07-17] MEDS ORDERED: HYDROmorphONE (0.2 MG/ML) 10ML SYG IV PRN ×2 (23:30)
[2017-07-17] MEDS ORDERED: EPHEDrine SULFATE 50 MG/5 ML SYG IV PRN (23:30)
[2017-07-17] MEDS ORDERED: GLYCOPYRROLATE 0.4 MG INJ ONE (23:37)
[2017-07-17] MEDS: SOD CHLORIDE 0.9% 1,000 ML IV SCH (23:37)
[2017-07-17] MEDS ORDERED: NEOSTIGMINE 3 MG/3 ML SYRINGE ONE (23:37)
[2017-07-18] VITALS (24 sets, daily range): BP systolic 96–125; BP diastolic 51–69; PULSE 64–94; RESP 15–24
[2017-07-18] MEDS ORDERED: HYDROCODONE/APAP (5/325) TAB PO PRN
[2017-07-18] MEDS ORDERED: NACL 0.9% 3 ML SYG IV SCH
[2017-07-18] MEDS ORDERED: morphine 4 MG/ML VIAL IV PRN
[2017-07-18] MEDS: HYDROmorphONE (0.2 MG/ML) 10ML SYG IV PRN ×4 (00:06→00:31)
--- NOTE | 2017-07-18 00:16 | SIPON ---
Date/Time of Note Date/Time of Note DATE: 07/18/17 TIME: 00:12 Operative Report Preoperative Diagnosis fracture of Rt. tibia fibula Postoperative Diagnosis same as preop Operation/Procedure Performed im nailing of Rt. tibia Surgeon: LITYZ WHITAKER MD Anesthesia Type: general Estimated Blood Loss: 0 - 10 ml's Transfusion Required: no Specimen: none Grafts/Implants: none Grafts/Implants im nail Complications: no LITZY WHITAKER MD Jul 18, 2017 00:16
--- NOTE | 2017-07-18 00:51 | RADRPT ---
PROCEDURE: XR Tibia and Fibula. CLINICAL INDICATION: Fracture. Postoperative evaluation TECHNIQUE: AP and lateral of the right tibia and fibula were obtained, 8 images sent to the PACS f or review. COMPARISON: 07/15/2017 FINDINGS: New intramedullary yuniel through the entire tibia is present stabilizing the previously seen spiral fr acture of the distal diaphysis, the ossific fracture fragments now in good radiographic alignment. A solitary horizontal screws stabilize the proximal and distal ends of the intramedullary yuniel. A mi nimally displaced spiral fracture of the proximal fibula shaft is again noted. Anterior skin chyna at the level of the knee joint are seen. Mild diffuse soft tissue swelling is present. RPTAT:HJJR IMPRESSION: 1. Interval open reduction internal intramedullary yuniel and screw fixation of the previously seen sp iral fracture involving the right tibial diaphysis, the fracture fragments in good radiographic alig nment. 2. Again demonstrated was a spiral fracture involving the proximal right fibula without significant displacement. Physician Fred Date Time Electronically viewed and signed by Physician Fred on 07/18/2017 00:51 JR/
--- NOTE | 2017-07-18 00:53 | RADRPT ---
PROCEDURE: Fluoroscopic assistance for open reduction internal fixation CLINICAL INDICATION: Right tibial fracture TECHNIQUE: A total of 105.1 seconds fluoroscopic assistance is provided into the supervision of Dr Sergei Campbell and at pain intraoperative spot images are submitted to the PACS for review COMPARISON: Tibia and fibula series 07/15/2017 FINDINGS: Initial images demonstrate a metallic instrument projecting along the medial knee joint. Subsequent images show intramedullary yuniel and screw placement through the distal tibial diaphyseal fracture. A horizontally oriented screw in the distal yuniel is noted on the final image. RPTAT:HJJR IMPRESSION: Fluoroscopic assistance for open reduction internal fixation with intramedullary yuniel and screw place ment the previously seen right tibial fracture. Physician Fred Date Time Electronically viewed and signed by Physician Fred on 07/18/2017 00:53 JR/
[2017-07-18] MEDS: D5W-0.45 NACL + KCL 20 MEQ 1,000 ML IV SCH ×3 (01:01→17:26)
[2017-07-18] MEDS: CEFAZOLIN 1 GM/50 ML (PMX) 50 ML IVPB SCH ×3 (01:05→17:04)
--- NOTE | 2017-07-18 03:33 | OPR ---
DATE OF OPERATION: 07/17/2017 PREOPERATIVE DIAGNOSIS: Spiral fracture involving the distal shaft of the tibia and fibula of the right leg. POSTOPERATIVE DIAGNOSIS: Spiral fracture involving the distal shaft of the tibia and fibula of the right leg. OPERATIVE PROCEDURE: Open reduction and internal fixation of the spiral fracture of the right tibia by intramedullary nailing. ANESTHESIA: General anesthesia. SURGEON: Vesta Campbell MD OPERATIVE PROCEDURE: Under general anesthesia the patient was placed in supine position upon the operating table. After a tourniquet was placed over the proximal portion of the right thigh and was inflated up to 300 mmHg prior to the procedure. The usual prep and drape was done exposing the right leg. The proximal and of the right tibia was approached through the longitudinal incision made at the level of the tibial tubercle medial to the patellar tendon. Using metallic FRANCIS intramedullary canal was entered and with the help of the reduction guide reamer guide was introduced into the intramedullary canal and threaded downward through the fracture site into the distal segment. Evaluation at this time revealed that the size of the should be 24 cm, and the girth will be about 10 mm. After reaming up to 11 mm, selected intramedullary yuniel in the size of 24 x 10 mm intramedullary nail was inserted. After proper adjustment including rotation adjustment and length, the intramedullary yuniel was proximally and distally locked, stabilizing intersystem. After confirming satisfactory alignment of the fracture and proper position of the fixation device and after irrigation and hemostasis, closure of the incision was carried out using 0 Vicryl for muscle and fascia and 2-0 Vicryl for subcutaneous tissues. Final skin closure was carried out with skin chyna. The proper sterile pressure dressings were applied. The patient tolerated the entire procedure very well and was sent to the recovery room in excellent condition. Dictated By: In Sandra Campbell MD /main/mario /Document#: [id number]
[2017-07-18] MEDS: HYDROmorphONE 1 MG/ML SYG IV PRN ×6 (05:44→22:24)
[2017-07-18 07:42] LABS: HEMATOCRIT 32.6 % (37.0-47.0); HEMOGLOBIN 10.4 g/dl (12.0-16.0); LYMPHOCYTES # 0.8 10^3/ul (0.8-2.9); LYMPHOCYTES % 11.5 % (15.0-51.0); MEAN CORPUSCULAR HEMOGLOBIN 26.3 pg (29.0-33.0); MEAN CORPUSCULAR HGB CONC 31.9 g/dl (32.0-37.0); MEAN CORPUSCULAR VOLUME 82.5 fl (82.0-101.0); MEAN PLATELET VOLUME 10.1 fl (7.4-10.4); MONOCYTE # 0.2 10^3/ul (0.3-0.9); MONOCYTES % 2.3 % (0.0-11.0); NEUTROPHILS % 85.9 % (39.0-77.0); PLATELET COUNT 184 10^3/UL (140-415); RED BLOOD COUNT 3.95 10^6/ul (4.20-5.40); RED CELL DISTRIBUTION WIDTH 12.2 % (11.5-14.5); WHITE BLOOD COUNT 6.6 10^3/ul (4.8-10.8)
[2017-07-18 08:05] LABS: INR 0.95; PROTIME 12.7 Sec (12.2-14.2)
[2017-07-18 08:15] LABS: CALCIUM 9.1 mg/dl (8.4-10.2); CREATININE 0.63 mg/dl (0.44-1.00)
[2017-07-18 08:16] LABS: MAGNESIUM 1.7 mg/dl (1.7-2.5)
[2017-07-18] MEDS: ENOXAPARIN 40 MG/0.4 ML SYG SC SCH (08:35)
[2017-07-18] MEDS: LISINOPRIL 5 MG TAB PO SCH (08:36)
[2017-07-18] MEDS: CHOLECALCIFEROL 1,000 UNIT TAB PO SCH (08:36)
[2017-07-18] MEDS: ASPIRIN (EC) 81 MG TAB PO SCH (08:36)
[2017-07-18] MEDS: RANITIDINE 150 MG TAB PO SCH ×2 (08:36→20:43)
[2017-07-18] MEDS: DULOXETINE 30 MG CAP DR PO SCH (08:36)
[2017-07-18] MEDS: LETROZOLE 2.5 MG TAB PO SCH (08:37)
[2017-07-18] MEDS: SOD CHLORIDE 0.9% 1,000 ML IV SCH ×2 (09:37→17:27)
[2017-07-18 10:12] LABS: THYROID STIMULATING HORMONE 0.663 MIU/L (0.465-4.680)
[2017-07-18] MEDS: BISACODYL (EC) 5 MG TAB PO PRN (11:56)
--- NOTE | 2017-07-18 12:54 | PN ---
Date/Time of Note Date/Time of Note DATE: 07/18/17 TIME: 12:50 Assessment/Plan VTE Prophylaxis VTE Prophylaxis Intervention: LMWH Lines/Catheters IV Catheter Type (from Nrsg): Peripheral IV Urinary Cath still in place: Yes Reason Cath still needed: skin wounds contaminated by urine Assessment/Plan Chief Complaint/Hosp Course S: 07/17 mod/ severe pain. No dyspnea chest pain fever. at bedside. 07/18: Events noted no chest pain dyspnea. Moderate pain. Only updated regarding physical therapy needs and possibly requiring short term placement O: Sr. No pallor. Reg no m/r/g Clear Benign Rt lwr ext dressed/ braced Neuro: Nonfocal A/P 1. Rt tib-fib closed acute fracture. Stable, s/p ORIF spiral fracture rt tibia by im nailing. PT/dme/wound care/ snf vs ARU. 2. Mechanical fall nonweightbearing: Acute rehab vs snf 3. DJD/osteoporosis 4. P A Fib? tsh ok. chadsvas -1 5. Mild/mod carotid stenosis; asymptomatic 6. Chr htn/dyslipidemia. EF =60% 10. Anemia possibly of chronic disease. No acute blood loss 11. Possible syncope. BP/EKG/echo/neuro exam noncontributory. 12. History of breast cancer. Problems: Exam/Review of Systems Vital Signs Vitals Vital Signs Date Time Temp Pulse Resp B/P Pulse Ox O2 Delivery O2 Flow Rate FiO2 07/18/17 12:16 76 07/18/17 11:15 97.3 16 111/59 97 07/18/17 00:26 Nasal Cannula 2.0 Intake and Output 07/17/17 07/17/17 07/18/17 15:00 23:00 07:00 Intake Total 1130 ml 1550 ml Output Total 1400 ml 1220 ml Balance -270 ml 330 ml Results Result Diagram: 07/18/17 0644 07/18/17 0644 Results 24 hrs Laboratory Tests Test 07/18/17 06:44 White Blood Count 6.6 Red Blood Count 3.95 L Hemoglobin 10.4 L Hematocrit 32.6 L Mean Corpuscular Volume 82.5 Mean Corpuscular Hemoglobin 26.3 L Mean Corpuscular Hemoglobin Concent 31.9 L Red Cell Distribution Width 12.2 Platelet Count 184 Mean Platelet Volume 10.1 Neutrophils % 85.9 H Lymphocytes % 11.5 L Monocytes % 2.3 Eosinophils % 0.0 Basophils % 0.0 Nucleated Red Blood Cells % 0.0 Neutrophils # (Manual) 5.7 Lymphocytes # 0.8 Monocytes # 0.2 L Eosinophils # 0.0 Basophils # 0.0 Nucleated Red Blood Cells # 0.0 Prothrombin Time 12.7 Prothrombin Time Ratio 1.0 INR International Normalized Ratio 0.95 Sodium Level 140 Potassium Level 5.0 Chloride Level 97 Carbon Dioxide Level 30 Anion Gap 18 H Blood Urea Nitrogen 12 Creatinine 0.63 Glucose Level 173 Calcium Level 9.1 Phosphorus Level 5.0 H Magnesium Level 1.7 Thyroid Stimulating Hormone (TSH) 0.663 Medications Medications Current Medications Ondansetron HCl (Zofran Inj) 4 mg Q6H PRN IV NAUSEA AND/OR VOMITING; Start at 14:30 Acetaminophen (Tylenol Tab) 650 mg Q6H PRN PO PAIN LEVEL 1-3 OR FEVER; Start at 14:30 Aspirin (Halfprin) 81 mg DAILY PO Last administered on 07/18/17 08:36; Admin Dose 81 MG; Start 07/15/17 at 15:00 Cholecalciferol (Vitamin D) 2,000 unit DAILY PO Last administered on 07/18/17 08:36; Admin Dose 2,000 UNIT; Start 07/15/17 at 15:00 Duloxetine HCl (Cymbalta) 30 mg DAILY PO Last administered on 07/18/17 08:36; Admin Dose 30 MG; Start 07/15/17 at 15:00 Letrozole (Femara) 2.5 mg DAILY PO Last administered on 07/18/17 08:37; Admin Dose 2.5 MG; Start 07/15/17 at 16:00 Lisinopril (Zestril) 5 mg DAILY PO Last administered on 07/18/17 08:36; Admin Dose 5 MG; Start 07/15/17 at 15:00 Ranitidine HCl (Zantac) 150 mg Q12 PO Last administered on 07/18/17 08:36; Admin Dose 150 MG; Start 07/15/17 at 21:00 Atorvastatin Calcium 10 mg 10 mg DAILY@21 PO Last administered on 07/16/17 21: 08; Admin Dose 10 MG; Start 07/15/17 at 21:00 Potassium Chloride/Dextrose/ Sod Cl (D5-1/2ns + KCl 20 Meq) 1,000 ml @ 50 mls/ hr Q20H IV Last administered on 07/17/17 10:00; Admin Dose 100 MLS/HR; Start 07/17/17 at 00:00 Hydromorphone HCl (Dilaudid) 1 mg Q2 PRN IV PAIN Last administered on 11:54; Admin Dose 1 MG; Start 07/17/17 at 14:00 Senna/Docusate Sodium (Senokot-S) 2 tab HS PO ; Start 07/18/17 at 21:00 Bisacodyl (Dulcolax) 10 mg DAILY PRN PO CONSTIPATION Last administered on 11:56; Admin Dose 10 MG; Start 07/17/17 at 15:00 Bisacodyl 10 mg 10 mg Q48H PRN [place] CONSTIPATION; Start 07/17/17 at 15:00 Cefazolin Sodium 50 ml @ 100 mls/hr Q8H IVPB Last administered on 07/18/17 08 :36; Admin Dose 100 MLS/HR; Start 07/18/17 at 00:00; Stop 07/18/17 at 16:29 Sodium Chloride (NS) 1,000 ml @ 100 mls/hr Q10H IV Last administered on 09:37; Admin Dose 100 MLS/HR; Start 07/17/17 at 23:37 Enoxaparin Sodium (Lovenox) 40 mg DAILY SC ; Start 07/18/17 at 09:00 Morphine Sulfate (morphine) 3 mg Q3H PRN IV PAIN; Start 07/18/17 at 00:00 Acetaminophen/ Hydrocodone Bitart ([place] (5/325)) 1 tab Q3H PRN PO PAIN; Start 07/18/17 at 00:00 INEZ DOWNEY MD Jul 18, 2017 12:53
[2017-07-18] MEDS: ATORVASTATIN 10 MG TAB PO SCH (20:43)
[2017-07-18] MEDS: SENNA/DOCUSATE NA (8.6MG/50MG) TAB PO SCH (20:43)
[2017-07-19] MEDS: HYDROmorphONE 1 MG/ML SYG IV PRN ×6 (05:41→21:29)
[2017-07-19 07:00] VITALS: BP 111/59; RESP 20
[2017-07-19] MEDS: D5W-0.45 NACL + KCL 20 MEQ 1,000 ML IV SCH ×2 (07:39→19:44)
[2017-07-19] MEDS: ASPIRIN (EC) 81 MG TAB PO SCH (09:05)
[2017-07-19] MEDS: RANITIDINE 150 MG TAB PO SCH (09:06)
[2017-07-19] MEDS: CHOLECALCIFEROL 1,000 UNIT TAB PO SCH (09:06)
[2017-07-19] MEDS: DULOXETINE 30 MG CAP DR PO SCH (09:07)
[2017-07-19] MEDS: LETROZOLE 2.5 MG TAB PO SCH (09:16)
[2017-07-19] MEDS: ENOXAPARIN 40 MG/0.4 ML SYG SC SCH (09:16)
[2017-07-19 14:00] VITALS: BP 104/54; RESP 18
[2017-07-19] MEDS: SOD CHLORIDE 0.9% 1,000 ML IV SCH (14:36)
--- NOTE | 2017-07-19 16:58 | PN ---
Date/Time of Note Date/Time of Note DATE: 07/19/17 TIME: 16:56 Assessment/Plan VTE Prophylaxis VTE Prophylaxis Intervention: LMWH Lines/Catheters IV Catheter Type (from Nrsg): Peripheral IV Urinary Cath still in place: Yes Reason Cath still needed: pres ulcer contaminated by urine Assessment/Plan Chief Complaint/Hosp Course S: 07/17 mod/ severe pain. No dyspnea chest pain fever. at bedside. 07/18: Events noted no chest pain dyspnea. Moderate pain. Only updated regarding physical therapy needs and possibly requiring short term placement 07/19: participating w pt. O: Sr. No pallor. Reg no m/r/g Clear Benign Rt lwr ext dressed/ braced Neuro: Nonfocal A/P 1. Rt tib-fib closed acute fracture. Stable, s/p ORIF spiral fracture rt tibia w im nailing. PT/dme/wound care. DC to snf vs ARU. 2. Mechanical fall nonweightbearing: Acute rehab vs snf 3. DJD/osteoporosis 4. P A Fib? tsh ok. chadsvas -1 5. Mild/mod carotid stenosis; asymptomatic 6. Chr htn/dyslipidemia. EF =60% 10. Anemia possibly of chronic disease. No acute blood loss 11. Possible syncope. BP/EKG/echo/neuro exam noncontributory. 12. History of breast cancer. Problems: Exam/Review of Systems Vital Signs Vitals Vital Signs Date Time Temp Pulse Resp B/P Pulse Ox O2 Delivery O2 Flow Rate FiO2 07/19/17 14:00 97.8 81 18 104/54 99 07/19/17 09:00 Nasal Cannula 2.0 Intake and Output 07/18/17 07/18/17 07/19/17 15:00 23:00 07:00 Intake Total 900 ml 850 ml Output Total 1100 ml 1200 ml Balance -200 ml -350 ml Results Result Diagram: 07/18/1744 07/18/17643 Medications Medications Current Medications Ondansetron HCl (Zofran Inj) 4 mg Q6H PRN IV NAUSEA AND/OR VOMITING; Start at 14:30 Acetaminophen (Tylenol Tab) 650 mg Q6H PRN PO PAIN LEVEL 1-3 OR FEVER; Start at 14:30 Aspirin (Halfprin) 81 mg DAILY PO Last administered on 07/19/17t 09:05; Admin Dose 81 MG; Start 07/15/17 at 15:00 Cholecalciferol (Vitamin D) 2,000 unit DAILY PO Last administered on 07/19/17 09:06; Admin Dose 2,000 UNIT; Start 07/15/17 at 15:00 Duloxetine HCl (Cymbalta) 30 mg DAILY PO Last administered on 07/19/17 09:07; Admin Dose 30 MG; Start 07/15/17 at 15:00 Letrozole (Femara) 2.5 mg DAILY PO Last administered on 07/19/17 09:16; Admin Dose 2.5 MG; Start 07/15/17 at 16:00 Ranitidine HCl (Zantac) 150 mg Q12 PO Last administered on 07/19/17 09:06; Admin Dose 150 MG; Start 07/15/17 at 21:00 Atorvastatin Calcium 10 mg 10 mg DAILY@21 PO Last administered on 07/18/17 20: 43; Admin Dose 10 MG; Start 07/15/17 at 21:00 Potassium Chloride/Dextrose/ Sod Cl (D5-1/2ns + KCl 20 Meq) 1,000 ml @ 75 mls/ hr [id number] IV Last administered on 07/17/17 10:00; Admin Dose 100 MLS/HR; Start 07/17/17 at 00:00 Hydromorphone HCl (Dilaudid) 1 mg Q2 PRN IV PAIN Last administered on 16:11; Admin Dose 1 MG; Start 07/17/17 at 14:00 Senna/Docusate Sodium (Senokot-S) 2 tab HS PO Last administered on 07/18/17 20 :43; Admin Dose 2 TAB; Start 07/18/17 at 21:00 Bisacodyl (Dulcolax) 10 mg DAILY PRN PO CONSTIPATION Last administered on 11:56; Admin Dose 10 MG; Start 07/17/17 at 15:00 Bisacodyl 10 mg 10 mg Q48H PRN [place] CONSTIPATION Last administered on 07/19/17 15:28; Admin Dose 10 MG; Start 07/17/17 at 15:00 Sodium Chloride (NS) 1,000 ml @ 75 mls/hr [id number] IV Last administered on 07/19 14:36; Admin Dose 75 MLS/HR; Start 07/17/17 at 23:37 Enoxaparin Sodium (Lovenox) 40 mg DAILY SC Last administered on 07/19/17 09:16 ; Admin Dose 40 MG; Start 07/18/17 at 09:00 Morphine Sulfate (morphine) 3 mg Q3H PRN IV PAIN; Start 07/18/17 at 00:00 Acetaminophen/ Hydrocodone Bitart ([facility] (10/325)) 1 tab Q4H PRN PO PAIN; Start 07/18/17 at 13:00 INEZ DOWNEY MD Jul 19, 2017 16:58
[2017-07-19 20:02] VITALS: BP 124/66; RESP 20
[2017-07-19] MEDS: ATORVASTATIN 10 MG TAB PO SCH (21:23)
[2017-07-19] MEDS: SENNA/DOCUSATE NA (8.6MG/50MG) TAB PO SCH (21:23)
[2017-07-20] MEDS: HYDROmorphONE 1 MG/ML SYG IV PRN ×3 (02:31→19:06)
[2017-07-20 02:51] VITALS: BP 128/75; RESP 18
[2017-07-20 05:50] LABS: BASOPHILS % 0.3 % (0.0-2.0); EOSINOPHILS % 0.6 % (0.0-7.0); HEMATOCRIT 29.8 % (37.0-47.0); HEMOGLOBIN 9.5 g/dl (12.0-16.0); LYMPHOCYTES # 1.9 10^3/ul (0.8-2.9); LYMPHOCYTES % 27.9 % (15.0-51.0); MEAN CORPUSCULAR HEMOGLOBIN 26.6 pg (29.0-33.0); MEAN CORPUSCULAR HGB CONC 31.9 g/dl (32.0-37.0); MEAN CORPUSCULAR VOLUME 83.5 fl (82.0-101.0); MEAN PLATELET VOLUME 9.9 fl (7.4-10.4); MONOCYTE # 0.7 10^3/ul (0.3-0.9); MONOCYTES % 10.8 % (0.0-11.0); NEUTROPHILS % 59.9 % (39.0-77.0); PLATELET COUNT 188 10^3/UL (140-415); RED BLOOD COUNT 3.57 10^6/ul (4.20-5.40); WHITE BLOOD COUNT 6.6 10^3/ul (4.8-10.8)
[2017-07-20 06:15] LABS: CALCIUM 8.8 mg/dl (8.4-10.2); CREATININE 0.61 mg/dl (0.44-1.00); MAGNESIUM 1.7 mg/dl (1.7-2.5); PHOSPHORUS 3.6 mg/dl (2.5-4.9); POTASSIUM 4.4 mmol/L (3.5-5.1)
--- NOTE | 2017-07-20 07:02 | PN ---
DATE: 07/19/2017 SUBJECTIVE DATA: Second postop day. OBJECTIVE DATA: Postop x-ray shows perfect alignment of the fracture. Afebrile. The latest H and H are 10.4/32.6. Has been up and around with physical therapy. Dictated By: In Sandra Campbell MD /main/[email or web address] /Document#: [id number]
[2017-07-20 08:21] VITALS: BP 129/77; RESP 18
[2017-07-20] MEDS: DULOXETINE 30 MG CAP DR PO SCH (09:09)
[2017-07-20] MEDS: LETROZOLE 2.5 MG TAB PO SCH (09:09)
[2017-07-20] MEDS: HYDROCODONE/APAP (10/325) TAB PO PRN ×4 (09:10→21:09)
[2017-07-20] MEDS: CHOLECALCIFEROL 1,000 UNIT TAB PO SCH (09:10)
[2017-07-20] MEDS: ASPIRIN (EC) 81 MG TAB PO SCH (09:10)
[2017-07-20] MEDS: RANITIDINE 150 MG TAB PO SCH (09:10)
[2017-07-20] MEDS: ENOXAPARIN 40 MG/0.4 ML SYG SC SCH (09:13)
[2017-07-20 16:12] VITALS: BP 121/62; RESP 18
--- NOTE | 2017-07-20 16:38 | PN ---
Date/Time of Note Date/Time of Note DATE: 07/20/17 TIME: 16:37 Assessment/Plan VTE Prophylaxis VTE Prophylaxis Intervention: LMWH Lines/Catheters IV Catheter Type (from Nrs): Saline Lock Urinary Cath still in place: Yes Reason Cath still needed: pres ulcer contaminated by urine Assessment/Plan Chief Complaint/Hosp Course S: 07/17 mod/ severe pain. No dyspnea chest pain fever. at bedside. 07/18: Events noted no chest pain dyspnea. Moderate pain. Only updated regarding physical therapy needs and possibly requiring short term placement 07/19: participating w pt. 07/20 mod pain yet persisted with therapy. O: Sr. No pallor. Reg no m/r/g Clear Benign Rt lwr ext dressed/ braced Neuro: Nonfocal A/P 1. Rt tib-fib closed acute fracture. Stable, s/p POD 2 ORIF; spiral fracture rt tibia w im nailing. PT/dme/wound care. DC to snf vs ARU. 2. Mechanical fall nonweightbearing: Acute rehab vs snf 3. DJD/osteoporosis 4. P A Fib? tsh ok. chadsvas -1 5. Mild/mod carotid stenosis; asymptomatic 6. Chr htn/dyslipidemia. EF =60% 10. Anemia possibly of chronic disease. No acute blood loss 11. Possible syncope. BP/EKG/echo/neuro exam noncontributory. 12. History of breast cancer. Problems: Exam/Review of Systems Vital Signs Vitals Vital Signs Date Time Temp Pulse Resp B/P Pulse Ox O2 Delivery O2 Flow Rate FiO2 07/20/17 16:12 98.1 81 18 121/62 99 07/19/17 21:55 Nasal Cannula 2.0 Intake and Output 07/19/17 07/19/17 07/20/17 15:00 23:00 07:00 Intake Total 500 ml 1600 ml 420 ml Output Total 1100 ml 1100 ml Balance 500 ml 500 ml -680 ml Results Result Diagram: 07/20/17 04407/20/17440 Results 24 hrs Laboratory Tests Test 07/20/17 04:41 White Blood Count 6.6 Red Blood Count 3.57 L Hemoglobin 9.5 L Hematocrit 29.8 L Mean Corpuscular Volume 83.5 Mean Corpuscular Hemoglobin 26.6 L Mean Corpuscular Hemoglobin Concent 31.9 L Red Cell Distribution Width 12.0 Platelet Count 188 Mean Platelet Volume 9.9 Neutrophils % 59.9 Lymphocytes % 27.9 Monocytes % 10.8 Eosinophils % 0.6 Basophils % 0.3 Nucleated Red Blood Cells % 0.0 Neutrophils # (Manual) 4.0 Lymphocytes # 1.9 Monocytes # 0.7 Eosinophils # 0.0 Basophils # 0.0 Nucleated Red Blood Cells # 0.0 Sodium Level 141 Potassium Level 4.4 Chloride Level 98 Carbon Dioxide Level 32 H Anion Gap 15 Blood Urea Nitrogen 17 Creatinine 0.61 Glucose Level 127 # Calcium Level 8.8 Phosphorus Level 3.6 Magnesium Level 1.7 Medications Medications Current Medications Ondansetron HCl (Zofran Inj) 4 mg Q6H PRN IV NAUSEA AND/OR VOMITING; Start at 14:30 Acetaminophen (Tylenol Tab) 650 mg Q6H PRN PO PAIN LEVEL 1-3 OR FEVER; Start at 14:30 Aspirin (Halfprin) 81 mg DAILY PO Last administered on 07/20/17 09:10; Admin Dose 81 MG; Start 07/15/17 at 15:00 Cholecalciferol (Vitamin D) 2,000 unit DAILY PO Last administered on 07/20/17 09:10; Admin Dose 2,000 UNIT; Start 07/15/17 at 15:00 Duloxetine HCl (Cymbalta) 30 mg DAILY PO Last administered on 07/20/17 09:09; Admin Dose 30 MG; Start 07/15/17 at 15:00 Letrozole (Femara) 2.5 mg DAILY PO Last administered on 07/20/17 09:09; Admin Dose 2.5 MG; Start 07/15/17 at 16:00 Atorvastatin Calcium (Lipitor) 10 mg DAILY@21 PO Last administered on 21:23; Admin Dose 10 MG; Start 07/15/17 at 21:00 Hydromorphone HCl (Dilaudid) 1 mg Q2 PRN IV PAIN Last administered on 14:18; Admin Dose 1 MG; Start 07/17/17 at 14:00 Senna/Docusate Sodium (Senokot-S) 2 tab HS PO Last administered on 07/19/17 21 :23; Admin Dose 2 TAB; Start 07/18/17 at 21:00 Bisacodyl (Dulcolax) 10 mg DAILY PRN PO CONSTIPATION Last administered on 11:56; Admin Dose 10 MG; Start 07/17/17 at 15:00 Bisacodyl (Dulcolax Supp) 10 mg Q48H PRN [place] CONSTIPATION Last administered on 15:28; Admin Dose 10 MG; Start 07/17/17 at 15:00 Enoxaparin Sodium (Lovenox) 40 mg DAILY SC Last administered on 07/20/17 09:13 ; Admin Dose 40 MG; Start 07/18/17 at 09:00 Morphine Sulfate (morphine) 3 mg Q3H PRN IV PAIN; Start 07/18/17 at 00:00 Acetaminophen/ Hydrocodone Bitart ([place] (10/325)) 1 tab Q4H PRN PO PAIN Last administered on 07/20/17 13:07; Admin Dose 1 TAB; Start 07/18/17 at 13:00 Ranitidine HCl (Zantac) 150 mg DAILY PO Last administered on 07/20/17 09:10; Admin Dose 150 MG; Start 07/20/17 at 09:00 INEZ DOWNEY MD Jul 20, 2017 16:38
--- NOTE | 2017-07-20 16:41 | DS ---
Date/Time of Note Date/Time of Note DATE: 07/20/17 TIME: 16:38 Discharge Summary Admission/Discharge Info Admit Date/Time Jul 15, 2017 at 13:27 Discharge Date/Time Discharge Diagnosis tib -fib fracture Patient Condition: Stable Consults Dr Campbell- ORIF Procedures ORIF Hx of Present Illness This is a 62-year-old female with a history of hypertension, dyslipidemia, osteoporosis and breast cancer status post mastectomy who presented to the emergency department complaining of right lower extremity pain status post fall. She is accompanied by a family member at the bedside who also provided history. She said she had been having pain on her lower extremities which she actually states is a result of claudication. While she was walking to the bathroom, she fell pain on her lower extremities and stated that the right leg was almost frozen. She also felt lightheaded and fell to the floor. She stated that she was unconscious for some time. Denied hitting her head. She actually said the reason why she syncopized was a result of the pain on her leg as opposed to the lightheadedness. Denied chest pain, palpitations, shortness of breath, fever, chills, nausea or vomiting. When she presented to the ER, right lower extremity x-ray shows need in the distal tibia and proximal fibula fracture. Chest x-ray showed hyperexpanded lungs. Vitals were stable. Labs shows a WBC of 11.6 otherwise CBC and BMP were within acceptable range. . Hospital Course 62-year-old female fell at home. Found to have tib-fib fracture. Medically optimized, proceeded with ORIF. Presently stable and fit for discharge. Lovenox for DVT prophylaxis. Appointment ortho 2 weeks. Acute rehab versus snf. S: 07/17 mod/ severe pain. No dyspnea chest pain fever. at bedside. 07/18: Events noted no chest pain dyspnea. Moderate pain. Only updated regarding physical therapy needs and possibly requiring short term placement 07/19: participating w pt. 07/20 mod pain yet persisted with therapy. O: Sr. No pallor. Reg no m/r/g Clear Benign Rt lwr ext dressed/ braced Neuro: Nonfocal A/P 1. Rt tib-fib closed acute fracture. Stable, s/p POD 2 ORIF; spiral fracture rt tibia w im nailing. PT/dme/wound care. DC to snf vs ARU. 2. Mechanical fall nonweightbearing: Acute rehab vs snf 3. DJD/osteoporosis 4. P A Fib? tsh ok. chadsvas -1 5. Mild/mod carotid stenosis; asymptomatic 6. Chr htn/dyslipidemia. EF =60% 10. Anemia possibly of chronic disease. No acute blood loss 11. Possible syncope. BP/EKG/echo/neuro exam noncontributory. 12. History of breast cancer. Home Meds Reported Medications Alendronate Sodium* (Fosamax*) 70 Mg Tablet, 70 MG PO EVERY MONDAY, #4 TAB 07/15/17 Cholecalciferol (Vitamin D3) 1,000 Unit Capsule, 2000 UNIT PO DAILY, CAP 07/15/17 Duloxetine Hcl* (Cymbalta*) 30 Mg Capsule.dr, 30 MG PO DAILY, CAP 07/15/17 Letrozole* (Letrozole*) 2.5 Mg Tablet, 2.5 MG PO DAILY, TAB 07/15/17 Aspirin (Low Dose Aspirin) 81 Mg Tablet.dr, 81 MG PO DAILY, #30 TAB 07/15/17 Pravastatin Sodium* (Pravastatin Sodium*) 10 Mg Tablet, 10 MG PO HS, TAB 07/15/17 Ranitidine Hcl* (Ranitidine Hcl*) 150 Mg Tablet, 150 MG PO Q12, #60 TAB 07/15/17 Lisinopril* (Lisinopril*) 5 Mg Tablet, 5 MG PO DAILY, #30 TAB 07/15/17 Calcium Carbonate/Vitamin D3 (OYSTER SHELL 500 MG + VIT D TB) 1 Each Tablet, 1 EACH PO BID, TAB 07/15/17 Primary Care Provider Not On Staff Doctor Dr Campbell 2wks Pending Labs Laboratory Tests Test 07/20/17 04:41 White Blood Count 6.610^3/ul (4.8-10.8) Red Blood Count 3.5710^6/ul (4.20-5.40) Hemoglobin 9.5g/dl (12.0-16.0) Hematocrit 29.8% (37.0-47.0) Mean Corpuscular Volume 83.5fl (82.0-101.0) Mean Corpuscular Hemoglobin 26.6pg (29.0-33.0) Mean Corpuscular Hemoglobin Concent 31.9g/dl (32.0-37.0) Red Cell Distribution Width 12.0% (11.5-14.5) Platelet Count 84835^3/UL (140-415) Mean Platelet Volume 9.9fl (7.4-10.4) Neutrophils % 59.9% (39.0-77.0) Lymphocytes % 27.9% (15.0-51.0) Monocytes % 10.8% (0.0-11.0) Eosinophils % 0.6% (0.0-7.0) Basophils % 0.3% (0.0-2.0) Nucleated Red Blood Cells % 0.0/100WBC (0.0-0.0) Neutrophils # (Manual) 4.010^3/ul (1.7-7.5) Lymphocytes # 1.910^3/ul (0.8-2.9) Monocytes # 0.710^3/ul (0.3-0.9) Eosinophils # 0.010^3/ul (0.0-0.5) Basophils # 0.010^3/ul (0.0-0.1) Nucleated Red Blood Cells # 0.010^3/ul (0.0-0.0) Sodium Level 141mmol/L (135-144) Potassium Level 4.4mmol/L (3.5-5.1) Chloride Level 98mmol/L (97-110) Carbon Dioxide Level 32mmol/L (21-31) Anion Gap 15 (8-16) Blood Urea Nitrogen 17mg/dl (7-20) Creatinine 0.61mg/dl (0.44-1.00) Glucose Level 127mg/dl (70-220) Calcium Level 8.8mg/dl (8.4-10.2) Phosphorus Level 3.6mg/dl (2.5-4.9) Magnesium Level 1.7mg/dl (1.7-2.5) INEZ DOWNEY MD Jul 20, 2017 16:41
[2017-07-20 20:24] VITALS: BP 115/57; RESP 20
[2017-07-20] MEDS: ATORVASTATIN 10 MG TAB PO SCH (21:09)
[2017-07-20] MEDS: SENNA/DOCUSATE NA (8.6MG/50MG) TAB PO SCH (21:09)
[2017-07-21] MEDS: HYDROmorphONE 1 MG/ML SYG IV PRN ×4 (04:16→21:46)
[2017-07-21 05:33] LABS: BASOPHILS % 0.1 % (0.0-2.0); EOSINOPHILS % 0.6 % (0.0-7.0); HEMATOCRIT 30.1 % (37.0-47.0); HEMOGLOBIN 9.8 g/dl (12.0-16.0); LYMPHOCYTES % 28.1 % (15.0-51.0); MEAN CORPUSCULAR HEMOGLOBIN 26.5 pg (29.0-33.0); MEAN CORPUSCULAR HGB CONC 32.6 g/dl (32.0-37.0); MEAN CORPUSCULAR VOLUME 81.4 fl (82.0-101.0); MEAN PLATELET VOLUME 10.1 fl (7.4-10.4); MONOCYTE # 0.7 10^3/ul (0.3-0.9); MONOCYTES % 10.2 % (0.0-11.0); NEUTROPHILS % 60.4 % (39.0-77.0); PLATELET COUNT 218 10^3/UL (140-415); WHITE BLOOD COUNT 7.2 10^3/ul (4.8-10.8)
[2017-07-21] MEDS: HYDROCODONE/APAP (10/325) TAB PO PRN ×3 (05:45→16:41)
[2017-07-21 06:12] LABS: CALCIUM 9.1 mg/dl (8.4-10.2); CREATININE 0.6 mg/dl (0.44-1.00)
[2017-07-21] MEDS: DULOXETINE 30 MG CAP DR PO SCH (08:32)
[2017-07-21] MEDS: CHOLECALCIFEROL 1,000 UNIT TAB PO SCH (08:32)
[2017-07-21] MEDS: ASPIRIN (EC) 81 MG TAB PO SCH (08:33)
[2017-07-21] MEDS: LETROZOLE 2.5 MG TAB PO SCH (08:36)
[2017-07-21] MEDS: RANITIDINE 150 MG TAB PO SCH (08:37)
[2017-07-21] MEDS: ENOXAPARIN 40 MG/0.4 ML SYG SC SCH (08:37)
[2017-07-21 08:49] VITALS: BP 117/62; RESP 18
--- NOTE | 2017-07-21 12:14 | RADRPT ---
PROCEDURE: Ultrasound of the right lower extremity venous system. CLINICAL INDICATION: Right lower extremity pain, status post open reduction internal fixation of a tibial fracture. TECHNIQUE: Diane scale with and without compression, color doppler, spectral doppler of the venous system of the right lower extremity was performed. Venous augmentation maneuvers were utilized. COMPARISON: No prior studies are available for comparison. FINDINGS: RIGHT: Common femoral vein:Patent and compressible. Femoral vein:Patent and compressible. Popliteal vein:Patent and compressible. Visualized calf veins:Patent and compressible. Soft tissues:Normal IMPRESSION: 1. No evidence of deep vein thrombosis. RPTAT: [facility] Physician Caitlin Date Time Electronically viewed and signed by Physician Caitlin on 07/21/2017 12:14 /
--- NOTE | 2017-07-21 17:27 | PN ---
Date/Time of Note Date/Time of Note DATE: 07/21/17 TIME: 17:26 Assessment/Plan VTE Prophylaxis VTE Prophylaxis Intervention: LMWH Lines/Catheters IV Catheter Type (from Nrs): Peripheral IV Urinary Cath still in place: No Assessment/Plan Chief Complaint/Hosp Course 62-year-old female fell at home. Found to have tib-fib fracture. Medically optimized, proceeded with ORIF. Presently stable and fit for discharge. Lovenox for DVT prophylaxis. Appointment ortho 2 weeks. Acute rehab versus snf. S: 07/17 mod/ severe pain. No dyspnea chest pain fever. at bedside. 07/18: Events noted no chest pain dyspnea. Moderate pain. Only updated regarding physical therapy needs and possibly requiring short term placement 07/19: participating w pt. 07/20 mod pain yet persisted with therapy. 07/21: mod pain; starting to ambulate. O: vss No pallor. Reg no m/r/g Clear Benign Rt lwr ext dressed/ braced Neuro: Nonfocal A/P 1. Rt tib-fib closed acute fracture. Stable, s/p POD 3 ORIF; spiral fracture rt tibia w im nailing. PT/dme/wound care. Stable for DC to snf vs ARU. 2. Mechanical fall nonweightbearing: Acute rehab vs snf 3. DJD/osteoporosis 4. P A Fib? tsh ok. chadsvas -1 5. Mild/mod carotid stenosis; asymptomatic 6. Chr htn/dyslipidemia. EF =60% 10. Anemia possibly of chronic disease. No acute blood loss 11. Possible syncope. BP/EKG/echo/neuro exam noncontributory. 12. History of breast cancer. Problems: Exam/Review of Systems Vital Signs Vitals Vital Signs Date Time Temp Pulse Resp B/P Pulse Ox O2 Delivery O2 Flow Rate FiO2 07/21/17 08:49 97.7 78 18 117/62 97 07/19/17 21:55 Nasal Cannula 2.0 Intake and Output 07/20/17 07/20/17 07/21/17 15:00 23:00 07:00 Intake Total 1080 ml 550 ml Output Total 1150 ml 1200 ml Balance -70 ml -650 ml Results Result Diagram: 07/21/17 0433 07/21/17 0433 Results 24 hrs Laboratory Tests Test 07/21/17 04:33 White Blood Count 7.2 Red Blood Count 3.70 L Hemoglobin 9.8 L Hematocrit 30.1 L Mean Corpuscular Volume 81.4 L Mean Corpuscular Hemoglobin 26.5 L Mean Corpuscular Hemoglobin Concent 32.6 Red Cell Distribution Width 12.0 Platelet Count 218 Mean Platelet Volume 10.1 Neutrophils % 60.4 Lymphocytes % 28.1 Monocytes % 10.2 Eosinophils % 0.6 Basophils % 0.1 Nucleated Red Blood Cells % 0.0 Neutrophils # (Manual) 4.3 Lymphocytes # 2.0 Monocytes # 0.7 Eosinophils # 0.0 Basophils # 0.0 Nucleated Red Blood Cells # 0.0 Sodium Level 137 Potassium Level 4.0 Chloride Level 98 Carbon Dioxide Level 31 Anion Gap 12 Blood Urea Nitrogen 15 Creatinine 0.60 Glucose Level 130 Calcium Level 9.1 Medications Medications Current Medications Ondansetron HCl (Zofran Inj) 4 mg Q6H PRN IV NAUSEA AND/OR VOMITING; Start at 14:30 Acetaminophen (Tylenol Tab) 650 mg Q6H PRN PO PAIN LEVEL 1-3 OR FEVER; Start at 14:30 Aspirin (Halfprin) 81 mg DAILY PO Last administered on 07/21/17 08:33; Admin Dose 81 MG; Start 07/15/17 at 15:00 Cholecalciferol (Vitamin D) 2,000 unit DAILY PO Last administered on 07/21/17 08:32; Admin Dose 2,000 UNIT; Start 07/15/17 at 15:00 Duloxetine HCl (Cymbalta) 30 mg DAILY PO Last administered on 07/21/17 08:32; Admin Dose 30 MG; Start 07/15/17 at 15:00 Letrozole (Femara) 2.5 mg DAILY PO Last administered on 07/21/17 08:36; Admin Dose 2.5 MG; Start 07/15/17 at 16:00 Atorvastatin Calcium (Lipitor) 10 mg DAILY@21 PO Last administered on 21:09; Admin Dose 10 MG; Start 07/15/17 at 21:00 Hydromorphone HCl (Dilaudid) 1 mg Q2 PRN IV PAIN Last administered on 07/21/17 13:46; Admin Dose 1 MG; Start 07/17/17 at 14:00 Senna/Docusate Sodium (Senokot-S) 2 tab HS PO Last administered on 07/20/17 21 :09; Admin Dose 2 TAB; Start 07/18/17 at 21:00 Bisacodyl (Dulcolax) 10 mg DAILY PRN PO CONSTIPATION Last administered on 11:56; Admin Dose 10 MG; Start 07/17/17 at 15:00 Bisacodyl (Dulcolax Supp) 10 mg Q48H PRN [place] CONSTIPATION Last administered on 15:28; Admin Dose 10 MG; Start 07/17/17 at 15:00 Enoxaparin Sodium (Lovenox) 40 mg DAILY SC Last administered on 07/21/17 08:37 ; Admin Dose 40 MG; Start 07/18/17 at 09:00 Morphine Sulfate (morphine) 3 mg Q3H PRN IV PAIN; Start 07/18/17 at 00:00 Acetaminophen/ Hydrocodone Bitart ([place] (10/325)) 1 tab Q4H PRN PO PAIN Last administered on 07/21/17 16:41; Admin Dose 1 TAB; Start 07/18/17 at 13:00 Ranitidine HCl (Zantac) 150 mg DAILY PO Last administered on 07/21/17 08:37; Admin Dose 150 MG; Start 07/20/17 at 09:00 INEZ DOWNEY MD Jul 21, 2017 17:27
[2017-07-21 20:01] VITALS: BP 107/59; RESP 21
[2017-07-21] MEDS: ATORVASTATIN 10 MG TAB PO SCH (20:47)
[2017-07-21] MEDS: SENNA/DOCUSATE NA (8.6MG/50MG) TAB PO SCH (20:47)
[2017-07-22 04:14] VITALS: BP 113/65; RESP 22
[2017-07-22] MEDS: HYDROmorphONE 1 MG/ML SYG IV PRN (04:20)
[2017-07-22 08:06] VITALS: BP 113/58; RESP 15
[2017-07-22] MEDS: LETROZOLE 2.5 MG TAB PO SCH (09:07)
[2017-07-22] MEDS: DULOXETINE 30 MG CAP DR PO SCH (09:08)
[2017-07-22] MEDS: RANITIDINE 150 MG TAB PO SCH (09:08)
[2017-07-22] MEDS: ASPIRIN (EC) 81 MG TAB PO SCH (09:08)
[2017-07-22] MEDS: CHOLECALCIFEROL 1,000 UNIT TAB PO SCH (09:09)
[2017-07-22] MEDS: HYDROCODONE/APAP (10/325) TAB PO PRN ×4 (09:09→20:51)
[2017-07-22] MEDS: BISACODYL (EC) 5 MG TAB PO PRN (09:09)
[2017-07-22] MEDS: ENOXAPARIN 40 MG/0.4 ML SYG SC SCH (09:13)
[2017-07-22 14:00] VITALS: BP 99/58; RESP 15
--- NOTE | 2017-07-22 14:55 | PN ---
Date/Time of Note Date/Time of Note DATE: 07/22/17 TIME: 14:54 Assessment/Plan VTE Prophylaxis VTE Prophylaxis Intervention: LMWH Lines/Catheters IV Catheter Type (from Nrs): Saline Lock Urinary Cath still in place: No Assessment/Plan Chief Complaint/Hosp Course 62-year-old female fell at home. Found to have tib-fib fracture. Medically optimized, proceeded with ORIF. Presently stable and fit for discharge. Lovenox for DVT prophylaxis. Appointment ortho 2 weeks. Acute rehab versus snf. S: 07/17 mod/ severe pain. No dyspnea chest pain fever. at bedside. 07/18: Events noted no chest pain dyspnea. Moderate pain. Only updated regarding physical therapy needs and possibly requiring short term placement 07/19: participating w pt. 07/20 mod pain yet persisted with therapy. 07/21: mod pain; starting to ambulate. 07/22: Participating w PT. Min mod assist. Pain control no dyspnea fever I updated her as well regarding disposition. O: vss No pallor. Reg no m/r/g Clear Benign Rt lwr ext dressed/ braced. Intact pulses. Neuro: Nonfocal A/P 1. Rt tib-fib closed acute fracture. Stable, s/p POD 5 ORIF; spiral fracture rt tibia w im nailing. PT/dme/wound care. Stable for DC to snf vs ARU. 2. Mechanical fall nonweightbearing: Acute rehab vs snf 3. DJD/osteoporosis 4. P A Fib? tsh ok. chadsvas =1 5. Mild/mod carotid stenosis; asymptomatic 6. Chr htn/dyslipidemia. EF =60% 10. Anemia possibly of chronic disease. No acute blood loss 11. Possible syncope. BP/EKG/echo/neuro exam noncontributory. 12. History of breast cancer. Problems: Exam/Review of Systems Vital Signs Vitals Vital Signs Date Time Temp Pulse Resp B/P Pulse Ox O2 Delivery O2 Flow Rate FiO2 07/22/17 08:06 98.2 84 15 113/58 95 07/19/17 21:55 Nasal Cannula 2.0 Intake and Output 07/21/17 07/21/17 07/22/17 15:00 23:00 07:00 Intake Total 1100 ml Output Total 1000 ml Balance 100 ml Results Result Diagram: 07/21/17 0433 07/21/17 043 Medications Medications Current Medications Ondansetron HCl (Zofran Inj) 4 mg Q6H PRN IV NAUSEA AND/OR VOMITING; Start at 14:30 Acetaminophen (Tylenol Tab) 650 mg Q6H PRN PO PAIN LEVEL 1-3 OR FEVER; Start at 14:30 Aspirin (Halfprin) 81 mg DAILY PO Last administered on 07/22/17 09:08; Admin Dose 81 MG; Start 07/15/17 at 15:00 Cholecalciferol (Vitamin D) 2,000 unit DAILY PO Last administered on 07/22/17 09:09; Admin Dose 2,000 UNIT; Start 07/15/17 at 15:00 Duloxetine HCl (Cymbalta) 30 mg DAILY PO Last administered on 07/22/17 09:08; Admin Dose 30 MG; Start 07/15/17 at 15:00 Letrozole (Femara) 2.5 mg DAILY PO Last administered on 07/22/17 09:07; Admin Dose 2.5 MG; Start 07/15/17 at 16:00 Atorvastatin Calcium (Lipitor) 10 mg DAILY@21 PO Last administered on 07/21/17 20:47; Admin Dose 10 MG; Start 07/15/17 at 21:00 Hydromorphone HCl (Dilaudid) 1 mg Q2 PRN IV PAIN Last administered on 07/22/17 04:20; Admin Dose 1 MG; Start 07/17/17 at 14:00 Senna/Docusate Sodium (Senokot-S) 2 tab HS PO Last administered on 07/21/17 20: 47; Admin Dose 2 TAB; Start 07/18/17 at 21:00 Bisacodyl (Dulcolax) 10 mg DAILY PRN PO CONSTIPATION Last administered on 09:09; Admin Dose 10 MG; Start 07/17/17 at 15:00 Bisacodyl (Dulcolax Supp) 10 mg Q48H PRN [place] CONSTIPATION Last administered on 15:28; Admin Dose 10 MG; Start 07/17/17 at 15:00 Enoxaparin Sodium (Lovenox) 40 mg DAILY SC Last administered on 07/22/17 09:13 ; Admin Dose 40 MG; Start 07/18/17 at 09:00 Morphine Sulfate (morphine) 3 mg Q3H PRN IV PAIN; Start 07/18/17 at 00:00 Acetaminophen/ Hydrocodone Bitart ([place] (10325)) 1 tab Q4H PRN PO PAIN Last administered on 07/22/17 12:40; Admin Dose 1 TAB; Start 07/18/17 at 13:00 Ranitidine HCl (Zantac) 150 mg DAILY PO Last administered on 07/22/17 09:08; Admin Dose 150 MG; Start 07/20/17 at 09:00 INEZ DOWNEY MD Jul 22, 2017 14:55
--- NOTE | 2017-07-22 14:59 | PDOCDIS ---
Discharge Instructions DIAGNOSIS Discharge Diagnosis tib -fib fracture CONDITION Patient Condition: Stable HOME CARE INSTRUCTIONS: Diet Instructions: RegularSpecial Diet: soft diet to reg ACTIVITY: Activity Restrictions: Slowly Increase Activity Rest between Activity Avoid heavy lifting Do not operate Machinery Do not operate Power Tool Avoid Heavy Housework Bathing Restrictions: Shower FOLLOW UP/APPOINTMENTS Follow-up Plan INEZ Morrissey MD Jul 22, 2017 14:59
--- NOTE | 2017-07-22 14:59 | DS ---
Date/Time of Note Date/Time of Note DATE: 07/22/17 TIME: 14:55 Discharge Summary Admission/Discharge Info Admit Date/Time Jul 15, 2017 at 13:27 Discharge Date/Time Discharge Diagnosis tib -fib fracture Patient Condition: Stable Consults Dr Kaia Campbell Procedures 2D ECHO Conclusions 1. Normal left ventricular systolic function. Normal left ventricular cavity size. Normal left ventricular wall thickness. Ejection fraction is visually estimated at 60 %. Tissue Doppler/Mitral Doppler indices are consistent with impaired relaxation (Stage I diastolic dysfunction). 2. Normal appearance and function of the mitral valve with trace physiologic regurgitation. 3. Normal appearance of the tricuspid valve. Estimated peak PA systolic pressure 26 mmHg. There is trace tricuspid regurgitation. Electronically Signed By: Julio Yusuf 17-Jul-2017 13:05:41 -0700 Carotid ultrasound IMPRESSION: 1. Elevated systolic velocities are identified within the left mid/distal ICA , consistent with 50-69% stenosis in this area by S R U criteria. 2. There is no evidence for hemodynamically significant stenosis or occlusion on the right. 3. Antegrade flow seen within the vertebral arteries bilaterally. Validated velocity measurements with angiographic measurements, velocity criteria are extrapolated from diameter data as defined by the Society of Radiologists in Ultrasound Consensus Conference (Radiology 2003; 229; 340-346). This study does indirectly reference the measurement of the distal ICA diameter as the denominator for stenosis measurement. RPTAT: PP .Humza Carver MD, MD Date Time Electronically viewed and signed by .Humza Carver MD, on 07/16/2017 08: 37 Hx of Present Illness This is a 62-year-old female with a history of hypertension, dyslipidemia, osteoporosis and breast cancer status post mastectomy who presented to the emergency department complaining of right lower extremity pain status post fall. She is accompanied by a family member at the bedside who also provided history. She said she had been having pain on her lower extremities which she actually states is a result of claudication. While she was walking to the bathroom, she fell pain on her lower extremities and stated that the right leg was almost frozen. She also felt lightheaded and fell to the floor. She stated that she was unconscious for some time. Denied hitting her head. She actually said the reason why she syncopized was a result of the pain on her leg as opposed to the lightheadedness. Denied chest pain, palpitations, shortness of breath, fever, chills, nausea or vomiting. When she presented to the ER, right lower extremity x-ray shows need in the distal tibia and proximal fibula fracture. Chest x-ray showed hyperexpanded lungs. Vitals were stable. Labs shows a WBC of 11.6 otherwise CBC and BMP were within acceptable range. . Hospital Course 62-year-old female fell at home. Found to have tib-fib fracture. Medically optimized, proceeded with ORIF. Presently stable and fit for discharge. Lovenox for DVT prophylaxis. Appointment ortho 2 weeks. Acute rehab vs snf. S: 07/17 mod/ severe pain. No dyspnea chest pain fever. at bedside. 07/18: Events noted no chest pain dyspnea. Moderate pain. Only updated regarding physical therapy needs and possibly requiring short term placement 07/19: participating w pt. 07/20 mod pain yet persisted with therapy. 07/21: mod pain; starting to ambulate. 07/22: Participating w PT. Min mod assist. Pain control no dyspnea fever I updated her as well regarding disposition. O: vss No pallor. Reg no m/r/g Clear Benign Rt lwr ext dressed/ braced. Intact pulses. Neuro: Nonfocal A/P 1. Rt tib-fib closed acute fracture. Stable, s/p POD 5 ORIF; spiral fracture rt tibia w im nailing. PT/dme/wound care. Stable for DC to snf vs ARU. 2. Mechanical fall nonweightbearing: Acute rehab vs snf 3. DJD/osteoporosis 4. P A Fib? tsh ok. chadsvas =1 5. Mild/mod carotid stenosis; asymptomatic 6. Chr htn/dyslipidemia. EF =60% 10. Anemia possibly of chronic disease. No acute blood loss 11. Possible syncope. BP/EKG/echo/neuro exam noncontributory. 12. History of breast cancer. Home Meds Reported Medications Alendronate Sodium* (Fosamax*) 70 Mg Tablet, 70 MG PO EVERY MONDAY, #4 TAB 07/15/17 Cholecalciferol (Vitamin D3) 1,000 Unit Capsule, 2000 UNIT PO DAILY, CAP 07/15/17 Duloxetine Hcl* (Cymbalta*) 30 Mg Capsule.dr, 30 MG PO DAILY, CAP 07/15/17 Letrozole* (Letrozole*) 2.5 Mg Tablet, 2.5 MG PO DAILY, TAB 07/15/17 Aspirin (Low Dose Aspirin) 81 Mg Tablet.dr, 81 MG PO DAILY, #30 TAB 07/15/17 Pravastatin Sodium* (Pravastatin Sodium*) 10 Mg Tablet, 10 MG PO HS, TAB 07/15/17 Ranitidine Hcl* (Ranitidine Hcl*) 150 Mg Tablet, 150 MG PO Q12, #60 TAB 07/15/17 Lisinopril* (Lisinopril*) 5 Mg Tablet, 5 MG PO DAILY, #30 TAB 07/15/17 Calcium Carbonate/Vitamin D3 (OYSTER SHELL 500 MG + VIT D TB) 1 Each Tablet, 1 EACH PO BID, TAB 07/15/17 Primary Care Provider Not On Staff Doctor Dr Campbell 2wks Time spent on discharge: > 30 minutes INEZ DOWNEY MD Jul 22, 2017 14:59
[2017-07-22] MEDS ORDERED: ENOX40DI12 SC (15:01)
[2017-07-22] MEDS ORDERED: Hydrocodone/Apap (10/325) PO (15:01)
[2017-07-22] MEDS ORDERED: SENN-88 PO (15:01)
[2017-07-22] MEDS ORDERED: ACET325T40 PO (15:01)
[2017-07-22 20:22] VITALS: BP 96/55; RESP 18
[2017-07-22 20:32] VITALS: BP 121/65; RESP 18
[2017-07-22] MEDS: CALCIUM/VITAMIN D (500/200) TAB PO SCH (20:51)
[2017-07-22] MEDS: LACTOBACILLUS RHAMNOSUS CAP PO SCH (20:51)
[2017-07-22] MEDS: ATORVASTATIN 10 MG TAB PO SCH (20:51)
[2017-07-22] MEDS: SENNA/DOCUSATE NA (8.6MG/50MG) TAB PO SCH (20:58)
[2017-07-23] MEDS: HYDROCODONE/APAP (10/325) TAB PO PRN ×3 (01:55→13:50)
[2017-07-23 02:00] VITALS: BP 110/66; RESP 19
[2017-07-23 07:43] VITALS: BP 114/58; RESP 18
[2017-07-23] MEDS: LACTOBACILLUS RHAMNOSUS CAP PO SCH (08:29)
[2017-07-23] MEDS: DULOXETINE 30 MG CAP DR PO SCH (08:29)
[2017-07-23] MEDS: CALCIUM/VITAMIN D (500/200) TAB PO SCH (08:29)
[2017-07-23] MEDS: CHOLECALCIFEROL 1,000 UNIT TAB PO SCH (08:29)
[2017-07-23] MEDS: RANITIDINE 150 MG TAB PO SCH (08:29)
[2017-07-23] MEDS: ASPIRIN (EC) 81 MG TAB PO SCH (08:29)
[2017-07-23] MEDS: LETROZOLE 2.5 MG TAB PO SCH (08:40)
[2017-07-23] MEDS: ENOXAPARIN 40 MG/0.4 ML SYG SC SCH (08:40)
--- NOTE | 2017-07-23 14:01 | PN ---
Date/Time of Note Date/Time of Note DATE: 07/23/17 TIME: 13:59 Assessment/Plan VTE Prophylaxis VTE Prophylaxis Intervention: LMWH Lines/Catheters IV Catheter Type (from [facility]): [place] [facility] Urinary Cath still in place: No Assessment/Plan Chief Complaint/Hosp Course 62 yr-old female fell at home. Found to have tib-fib fracture. Medically optimized, proceeded w ORIF. Lovenox for DVT prophylaxis. Appt ortho 2 wks. Acute rehab accepted patient.. S: 07/17 mod/ severe pain. No dyspnea chest pain fever. at bedside. 07/18: Events noted no chest pain dyspnea. Moderate pain. Only updated regarding physical therapy needs and possibly requiring short term placement 07/19: participating w pt. 07/20 mod pain yet persisted with therapy. 07/21: mod pain; starting to ambulate. 07/22: Participating w PT. Min mod assist. Pain control no dyspnea fever I updated her as well regarding disposition. 07/23: No events O: vss No pallor. Reg no m/r/g Clear Benign Rt lwr ext dressed/ braced. Intact pulses. Neuro: Nonfocal A/P 1. Rt tib-fib closed acute fracture. Stable, s/p POD 6 ORIF; spiral fracture rt tibia w im nailing. PT/dme/wound care. Stable, DC to ARU. 2. Mechanical fall nonweightbearing: Acute rehab 3. DJD/osteoporosis 4. P A Fib? tsh ok. chadsvas =1 5. Mild/mod carotid stenosis; asymptomatic 6. Chr htn/dyslipidemia. EF =60% 10. Anemia possibly of chronic disease. No acute blood loss 11. Possible syncope. BP/EKG/echo/neuro exam noncontributory. 12. History of breast cancer. Problems: Exam/Review of Systems Vital Signs Vitals Vital Signs Date Time Temp Pulse Resp B/P Pulse Ox O2 Delivery O2 Flow Rate FiO2 07/23/17 07:43 98.6 66 18 114/58 95 07/19/17 21:55 Nasal Cannula 2.0 Intake and Output 07/22/17 07/22/17 07/23/17 15:00 23:00 07:00 Intake Total 720 ml 550 ml Output Total 400 ml 820 ml Balance 320 ml -270 ml Results Result Diagram: 07/21/17 0433 07/21/17 043 Medications Medications Current Medications Ondansetron HCl (Zofran Inj) 4 mg Q6H PRN IV NAUSEA AND/OR VOMITING; Start at 14:30 Acetaminophen (Tylenol Tab) 650 mg Q6H PRN PO PAIN LEVEL 1-3 OR FEVER; Start at 14:30 Aspirin (Halfprin) 81 mg DAILY PO Last administered on 07/23/17 08:29; Admin Dose 81 MG; Start 07/15/17 at 15:00 Cholecalciferol (Vitamin D) 2,000 unit DAILY PO Last administered on 07/23/17 08:29; Admin Dose 2,000 UNIT; Start 07/15/17 at 15:00 Duloxetine HCl (Cymbalta) 30 mg DAILY PO Last administered on 07/23/17 08:29; Admin Dose 30 MG; Start 07/15/17 at 15:00 Letrozole (Femara) 2.5 mg DAILY PO Last administered on 07/23/17 08:40; Admin Dose 2.5 MG; Start 07/15/17 at 16:00 Atorvastatin Calcium (Lipitor) 10 mg DAILY@21 PO Last administered on 07/22/17 20:51; Admin Dose 10 MG; Start 07/15/17 at 21:00 Hydromorphone HCl (Dilaudid) 1 mg Q2 PRN IV PAIN Last administered on 07/22/17 04:20; Admin Dose 1 MG; Start 07/17/17 at 14:00 Senna/Docusate Sodium (Senokot-S) 2 tab HS PO Last administered on 07/21/17 20: 47; Admin Dose 2 TAB; Start 07/18/17 at 21:00 Bisacodyl (Dulcolax) 10 mg DAILY PRN PO CONSTIPATION Last administered on 09:09; Admin Dose 10 MG; Start 07/17/17 at 15:00 Bisacodyl (Dulcolax Supp) 10 mg Q48H PRN [place] CONSTIPATION Last administered on 15:28; Admin Dose 10 MG; Start 07/17/17 at 15:00 Enoxaparin Sodium (Lovenox) 40 mg DAILY SC Last administered on 07/23/17 08:40 ; Admin Dose 40 MG; Start 07/18/17 at 09:00 Morphine Sulfate (morphine) 3 mg Q3H PRN IV PAIN; Start 07/18/17 at 00:00 Acetaminophen/ Hydrocodone Bitart ([place] (10/325)) 1 tab Q4H PRN PO PAIN Last administered on 07/23/17 13:50; Admin Dose 1 TAB; Start 07/18/17 at 13:00 Ranitidine HCl (Zantac) 150 mg DAILY PO Last administered on 07/23/17 08:29; Admin Dose 150 MG; Start 07/20/17 at 09:00 Lactobacillus Acidophilus/ Rhamnosus (Culturelle) 1 cap BID PO Last administered on 07/23/17 08:29; Admin Dose 1 CAP; Start 07/22/17 at 21:00 Calcium/Vitamin D (Oyster Shell/ Vit-D (500/200)) 1 tab BID PO Last administered on 07/23/17 08:29; Admin Dose 1 TAB; Start 07/22/17 at 21:00 INEZ DOWNEY MD Jul 23, 2017 14:01
[2017-07-23 15:35] VITALS: BP 122/70; RESP 18
== END 2017-07-23 15:45 | DRG 494 ==
LOC: E/R 07:05 → TEL 13:27 → MS1 16:36
PROVIDERS: ADMIT Internal Medicine; ATTEND Internal Medicine
PROC: 0QSG06Z Reposition Right Tibia with Intramedullary Internal Fixation Device, Open Approach (ICD-10-PCS; principal; 2017-07-17 19:30)
DX: S82.241A Displaced spiral fracture of shaft of right tibia, initial encounter for closed fracture (principal); I65.29 Occlusion and stenosis of unspecified carotid artery; I10 Essential (primary) hypertension; I48.0 Paroxysmal atrial fibrillation; D64.9 Anemia, unspecified; S82.301A Unspecified fracture of lower end of right tibia, initial encounter for closed fracture; E78.5 Hyperlipidemia, unspecified; M19.90 Unspecified osteoarthritis, unspecified site; W19.XXXA Unspecified fall, initial encounter; Z85.3 Personal history of malignant neoplasm of breast; S82.831A Other fracture of upper and lower end of right fibula, initial encounter for closed fracture; M81.0 Age-related osteoporosis without current pathological fracture
CPT/HCPCS: 36415; 70450; 71010; 73590; 80048; 80053; 80061; 82306; 83036; 83735; 84100; 84443; 84484; 85025; 85610; 85730; 93005; 93306; 93880; 93971; 96374; 96375; 96376; 97110; 97116; 97162; 97530; C1713; J0690; J1100; J1170; J1644; J1650; J2250; J2270; J2370; J2405; J2710; J2765; J3010; J3480; J7030

== ENCOUNTER 2017-07-23 16:00 | Inpatient (IN) | payer OTHER ==
[~2017-07-23] VITALS: Ht 167.6 cm; Wt 78.0 kg
[~2017-07-23 16:00] MED LIST: ACET325T40 PO; ALEN70TA30 PO; ASPI-664 PO; CALC-277 PO; CHOL10009 PO; DULO30CA45 PO; ENOX40DI12 SC; Hydrocodone/Apap (10/325) PO; LETR2.5T PO; LISI-313 PO; PRAV10TA43 PO; RANI150T5 PO; SENN-88 PO
[2017-07-23 17:00] VITALS: BP 138/64; PULSE 78; RESP 16
[2017-07-23 17:01] VITALS: Ht 167.6 cm; Wt 78.0 kg
[2017-07-23] MEDS ORDERED: ACETAMINOPHEN 325 MG TAB PO PRN ×2 (18:30)
[2017-07-23] MEDS ORDERED: BISACODYL (EC) 5 MG TAB PO PRN (18:30)
[2017-07-23] MEDS ORDERED: ONDANSETRON 4 MG INJ IV PRN (18:30)
[2017-07-23] MEDS: HYDROCODONE/APAP (10/325) TAB PO PRN ×2 (18:48→22:48)
[2017-07-23 19:40] VITALS: BP 118/64; RESP 20
[2017-07-23] MEDS: LACTOBACILLUS RHAMNOSUS CAP PO SCH (21:33)
[2017-07-23] MEDS: ATORVASTATIN 10 MG TAB PO SCH (21:33)
[2017-07-23] MEDS: CALCIUM/VITAMIN D (500/200) TAB PO SCH (21:33)
[2017-07-23] MEDS: SENNA/DOCUSATE NA (8.6MG/50MG) TAB PO SCH (21:34)
[2017-07-23] MEDS: DOCUSATE SODIUM 100 MG CAP PO SCH (21:34)
[2017-07-24 02:10] VITALS: BP 127/61; RESP 18
[2017-07-24] MEDS: HYDROCODONE/APAP (10/325) TAB PO PRN ×4 (05:23→20:54)
[2017-07-24 07:08] LABS: BASOPHILS % 0.2 % (0.0-2.0); EOSINOPHILS # 0.1 10^3/ul (0.0-0.5); EOSINOPHILS % 2.1 % (0.0-7.0); HEMATOCRIT 29.9 % (37.0-47.0); HEMOGLOBIN 9.9 g/dl (12.0-16.0); LYMPHOCYTES # 1.6 10^3/ul (0.8-2.9); LYMPHOCYTES % 26.5 % (15.0-51.0); MEAN CORPUSCULAR HEMOGLOBIN 26.9 pg (29.0-33.0); MEAN CORPUSCULAR HGB CONC 33.1 g/dl (32.0-37.0); MEAN CORPUSCULAR VOLUME 81.3 fl (82.0-101.0); MEAN PLATELET VOLUME 9.9 fl (7.4-10.4); MONOCYTE # 0.6 10^3/ul (0.3-0.9); MONOCYTES % 10.1 % (0.0-11.0); NEUTROPHILS % 60.4 % (39.0-77.0); PLATELET COUNT 275 10^3/UL (140-415); RED BLOOD COUNT 3.68 10^6/ul (4.20-5.40); RED CELL DISTRIBUTION WIDTH 12.3 % (11.5-14.5); WHITE BLOOD COUNT 5.9 10^3/ul (4.8-10.8)
[2017-07-24 07:30] VITALS: BP 128/68; RESP 18
[2017-07-24 07:40] LABS: ALBUMIN 3.4 g/dl (3.3-4.9); ALBUMIN/GLOBULIN RATIO 1.17; BILIRUBIN,INDIRECT 0.3 mg/dl (0-1.1); BILIRUBIN,TOTAL 0.3 mg/dl (0.2-1.3); CALCIUM 9.5 mg/dl (8.4-10.2); CREATININE 0.57 mg/dl (0.44-1.00); POTASSIUM 3.9 mmol/L (3.5-5.1); TOTAL PROTEIN 6.3 g/dl (6.1-8.1)
[2017-07-24] MEDS: CALCIUM/VITAMIN D (500/200) TAB PO SCH ×2 (07:49→20:52)
[2017-07-24] MEDS: DOCUSATE SODIUM 100 MG CAP PO SCH ×2 (07:49→20:52)
[2017-07-24] MEDS: HYDROmorphONE 1 MG/ML SYG IV PRN ×6 (07:53→18:51)
[2017-07-24 07:54] LABS: ADD UMIC NO; UR ASCORBIC ACID NEGATIVE (NEGATIVE); UR BILIRUBIN (Dip) NEGATIVE (NEGATIVE); UR BLOOD (Dip) NEGATIVE (NEGATIVE); UR CLARITY CLEAR (CLEAR); UR COLOR YELLOW (YELLOW); UR GLUCOSE (Dip) NEGATIVE (NEGATIVE); UR KETONES (Dip) NEGATIVE (NEGATIVE); UR LEUKOCYTE ESTERASE (Dip) NEGATIVE Leu/ul (NEGATIVE); UR NITRITE (Dip) NEGATIVE (NEGATIVE); UR SPECIFIC GRAVITY (Dip) 1.012 (1.003-1.030); UR TOTAL PROTEIN (Dip) NEGATIVE (NEGATIVE); UR UROBILINOGEN (Dip) NEGATIVE (NEGATIVE)
[2017-07-24] MEDS: LACTOBACILLUS RHAMNOSUS CAP PO SCH ×2 (09:18→18:50)
[2017-07-24] MEDS: RANITIDINE 150 MG TAB PO SCH (09:27)
[2017-07-24] MEDS: ASPIRIN (EC) 81 MG TAB PO SCH (09:27)
[2017-07-24] MEDS: DULOXETINE 30 MG CAP DR PO SCH (09:28)
[2017-07-24] MEDS: CHOLECALCIFEROL 2,000 UNIT CAP PO SCH (09:28)
[2017-07-24] MEDS: LETROZOLE 2.5 MG TAB PO SCH (11:06)
[2017-07-24] MEDS: ENOXAPARIN 40 MG/0.4 ML SYG SC SCH (11:08)
--- NOTE | 2017-07-24 12:52 | CONS ---
DATE OF ADMISSION: 07/23/2017 DATE OF CONSULTATION: 07/24/2017 TYPE OF CONSULTATION: Internal Medicine REASON FOR CONSULTATION: Internal Medicine management. HISTORY OF PRESENT ILLNESS: This is a pleasant 62-year-old lady originally seen at [facility] on 07/15/2017 when she presented with syncopal episode. This was accompanied by pain in her right lower extremity, sustaining a right tibial and fibular fracture. The patient underwent workup for syncopal episode, which was unremarkable; however, she required open reduction and internal fixation of right tibia fracture, which was performed by Dr. Campbell on 07/18/2017. Postoperatively, she had no complications and has now been transferred to acute rehab unit for continuing care. PAST MEDICAL HISTORY: Includes history of breast cancer, hypertension, hyperlipidemia, and recent tib-fib fracture. MEDICATIONS: Per chart. ALLERGIES: NONE. SOCIAL HISTORY: She is a nonsmoker. No alcohol. No history of drug use. FAMILY HISTORY: Noncontributory. REVIEW OF SYSTEMS: A A 12-point review of systems is negative other than that mentioned above. PHYSICAL EXAMINATION: GENERAL APPEARANCE: On examination, a well-nourished well- developed lady comfortable at rest talking on the phone. No complaints. VITAL SIGNS: Currently afebrile. Pulse is 85. Blood pressure 122/70. O2 sat 96 percent on 2 on room air. NECK: Supple. No JVD or lymphadenopathy. CARDIAC: S1, S2. No added sounds or murmurs. CHEST: Diminished air entry bilaterally. ABDOMEN: Soft, nontender. No guarding or rebound. EXTREMITIES: No signs of clubbing or edema. Right leg is elevated. Mild superior bruising around the ankle. NEUROLOGIC: No neurological deficits. LABORATORY: White count 7.2, hemoglobin 9.8, platelets 218. BUN 15, creatinine 0.6. INR 0.95. Initial CT of the brain was unremarkable. Lower extremity Dopplers are negative for deep vein thrombosis. An echocardiogram showed preserved ejection fraction with stage I diastolic dysfunction. IMPRESSION: 1. Syncopal episode. 2. Right tibia-fibula fracture status post intramedullary nailing. 3. History of breast cancer. 4. History of essential hypertension. PLAN: 1. Continue pain control. 2. Continue PT. 3. Continue current antihypertensives. 4. DVT and GI prophylaxis. Dictated By: Jose Angel Worthington MD /main/andi /Document#: [id number]
[2017-07-24 14:00] VITALS: BP 122/60; RESP 18
--- NOTE | 2017-07-24 15:14 | CONS ---
DATE OF ADMISSION: 07/23/2017 DATE OF CONSULTATION: 07/24/2017 REHABILITATION POST ADMISSION PHYSICIAN EVALUATION REHABILITATION IMPAIRMENT CATEGORY: Other orthopedic injury with right tibia and fibular fracture, status post ORIF. ACTIVE COMORBIDITIES: 1. Acute pain syndrome. 2. Constipation. 3. Hypertension. 4. Dyslipidemia. 5. Osteoporosis. 6. History of breast carcinoma. 7. Impairments in self-care and mobility. HISTORY OF PRESENT ILLNESS: Patient is a very pleasant 62-year- old female, who is status post a mechanical fall with resultant right tibia and fibular fracture. Patient underwent an ORIF by Dr. Park Campbell and was made weightbearing as tolerated postoperatively. Patient's hospital course has been notable for significant pain in addition to impairments in self-care and mobility as compared to baseline. Patient has now been cleared to transfer to the rehabilitation unit for comprehensive interdisciplinary rehab care. FUNCTIONAL HISTORY: Prior to recent events, she was independent in self-care tasks and mobility. Currently, patient requires moderate assist for self-care and mobility tasks. I have reviewed the preadmission screen, and patient's current functional status is consistent with the preadmission screen. SOCIAL HISTORY: Patient lives at home with family and hopes to return there upon discharge. PAST MEDICAL HISTORY: 1. Paroxysmal atrial fibrillation. 2. Carotid stenosis. 3. Hypertension. 4. Hyperlipidemia. 5. Osteoporosis. 6. History of breast carcinoma. CURRENT MEDICATIONS: 1. [place] p.r.n. 2. Aspirin 81 mg p.o. daily. 3. Lipitor 10 mg p.o. daily. 4. Oyster shell calcium. 5. Vitamin D. 6. Cymbalta 30 mg p.o. daily. 7. Lovenox 40 mg subcu daily. 8. Dilaudid p.r.n. 9. Femara 2.5 mg p.o. daily. 10. Zantac 150 p.o. daily.. ALLERGIES: PATIENT WITH NO KNOWN DRUG ALLERGIES. PHYSICAL EXAMINATION: VITAL SIGNS: Patient is currently afebrile with stable vital signs. HEENT: Extraocular motions are intact. Oropharynx clear. NECK: Supple. LUNGS: Clear anteriorly. HEART: S1, S2. ABDOMEN: Soft, nontender, positive bowel sounds. NEUROLOGICALLY: She is awake and alert and oriented x3. She can follow simple 1-step commands. Cranial nerves are grossly intact. She has good strength in bilateral upper extremities and the left lower extremity. She has antigravity strength in the right lower extremity. PLAN: Patient has been admitted for comprehensive interdisciplinary acute rehab and is anticipated to tolerate 3 hours of daily therapy in divided doses for at least 5/7 days a week. The treatment plan will include: 1. Physical therapy to focus on bed mobility, transfers and household ambulation with the goal of having patient reach a standby assist level. 2. Occupational therapy to focus on hygiene, grooming, dressing, bathing and toileting activities with goal of having patient reach a standby assist level. 3. Rehabilitation nursing for carry over of therapeutic interventions, the goal of continent of bowel and bladder and the goal of pain adequately managed on oral medications. REHABILITATION BARRIER: Pain. INTERVENTION FOR BARRIER: Comprehensive interdisciplinary approach. ESTIMATED LENGTH OF STAY: 10 days. DISPOSITION GOAL: Home I acknowledge I performed a full physical examination on this patient within 24 hours of admission to the rehabilitation unit and believe the patient is a good candidate for comprehensive interdisciplinary rehab care, anticipate make reasonable goals in a reasonable period of time as outlined above. Dictated By: Peter Rousseau MD /main/lupillo /Document#: [id number]
[2017-07-24 19:30] VITALS: BP 101/51; RESP 18
[2017-07-24] MEDS: SENNA/DOCUSATE NA (8.6MG/50MG) TAB PO SCH (20:52)
[2017-07-24] MEDS: ATORVASTATIN 10 MG TAB PO SCH (20:52)
[2017-07-25 02:21] VITALS: BP 137/66; RESP 19
[2017-07-25] MEDS: HYDROmorphONE 1 MG/ML SYG IV PRN ×7 (02:57→22:04)
--- NOTE | 2017-07-25 03:25 | PN ---
DATE: 07/24/2017 SUBJECTIVE DATA: Six days postop. OBJECTIVE DATA: VITAL SIGNS: The patient is afebrile. EXTREMITIES: There were no signs of any pyogenic process going on in the right lower extremity. ASSESSMENT AND PLAN: Gradually decreasing pain; however, she is still complaining of considerable pain and swelling around the right ankle. Part of the edema might be a gradual migration of the edema from upper part of the right leg to the right ankle from being up and around; however, we will repeat the x-rays of the right ankle to make sure that there is nothing going on. No change in neurovascular condition. Dictated By: In Sandra Campbell MD /main/andi /Document#: [id number]
[2017-07-25 06:37] LABS: BASOPHILS % 0.3 % (0.0-2.0); EOSINOPHILS # 0.1 10^3/ul (0.0-0.5); EOSINOPHILS % 1.5 % (0.0-7.0); HEMATOCRIT 31.8 % (37.0-47.0); HEMOGLOBIN 10.1 g/dl (12.0-16.0); LYMPHOCYTES # 2.3 10^3/ul (0.8-2.9); LYMPHOCYTES % 35.1 % (15.0-51.0); MEAN CORPUSCULAR HEMOGLOBIN 26.4 pg (29.0-33.0); MEAN CORPUSCULAR HGB CONC 31.8 g/dl (32.0-37.0); MEAN PLATELET VOLUME 9.9 fl (7.4-10.4); MONOCYTE # 0.7 10^3/ul (0.3-0.9); MONOCYTES % 10.2 % (0.0-11.0); NEUTROPHILS % 52.1 % (39.0-77.0); PLATELET COUNT 282 10^3/UL (140-415); RED BLOOD COUNT 3.83 10^6/ul (4.20-5.40); RED CELL DISTRIBUTION WIDTH 12.5 % (11.5-14.5); WHITE BLOOD COUNT 6.5 10^3/ul (4.8-10.8)
[2017-07-25 06:41] VITALS: BP 131/66; PULSE 84; RESP 16
[2017-07-25] MEDS: HYDROCODONE/APAP (10/325) TAB PO PRN (06:49)
[2017-07-25 07:12] LABS: CALCIUM 9.6 mg/dl (8.4-10.2); CREATININE 0.59 mg/dl (0.44-1.00); MAGNESIUM 1.9 mg/dl (1.7-2.5); PHOSPHORUS 4.4 mg/dl (2.5-4.9); POTASSIUM 4.4 mmol/L (3.5-5.1)
[2017-07-25 08:00] VITALS: BP 133/57; RESP 18
[2017-07-25] MEDS: LACTOBACILLUS RHAMNOSUS CAP PO SCH ×2 (09:49→20:57)
[2017-07-25] MEDS: CHOLECALCIFEROL 2,000 UNIT CAP PO SCH (09:49)
[2017-07-25] MEDS: DULOXETINE 30 MG CAP DR PO SCH (09:50)
[2017-07-25] MEDS: LETROZOLE 2.5 MG TAB PO SCH (09:52)
[2017-07-25] MEDS: DOCUSATE SODIUM 100 MG CAP PO SCH ×2 (10:00→20:57)
[2017-07-25] MEDS: ASPIRIN (EC) 81 MG TAB PO SCH (10:00)
[2017-07-25] MEDS: RANITIDINE 150 MG TAB PO SCH (10:01)
[2017-07-25] MEDS: CALCIUM/VITAMIN D (500/200) TAB PO SCH ×2 (10:01→22:05)
--- NOTE | 2017-07-25 11:29 | RADRPT ---
PROCEDURE: XR Ankle. CLINICAL INDICATION: Pain and swelling TECHNIQUE: AP, oblique and lateral views of the right ankle were performed. COMPARISON: Plain radiographs of the right tibia and fibula from 07/15/2017 FINDINGS: There has been interval placement of a partially visualized intramedullary yuniel bridging a spiral fra cture of the distal tibial diaphysis. There is near anatomic alignment. Overlying skin chyna are a lso noted. There is bimalleolar soft tissue swelling. The ankle mortise is intact. IMPRESSION: Status post interval placement of internal fixation hardware across a distal tibial fracture in near anatomic alignment without evidence of hardware loosening. Bimalleolar soft tissue swelling. RPTAT: EE Physician Sundeep Date Time Electronically viewed and signed by Physician Sundeep on 07/25/2017 11:29 /
--- NOTE | 2017-07-25 11:32 | RADRPT ---
PROCEDURE: Right tibia and fibula x-ray CLINICAL INDICATION: Pain and swelling TECHNIQUE: AP, lateral views of the tibia and fibula were obtained. COMPARISON: Plain radiographs of the right tibia and fibula from 07/17/2017 FINDINGS: There has been interval placement of an intramedullary yuniel across a spiral fracture of the distal ti bial diaphysis in near anatomic alignment. There are overlying postoperative changes including skin chyna. There is bimalleolar soft tissue swelling. A healing fracture of the proximal fibular diaphysis is noted in near anatomic alignment. RPTAT: AA IMPRESSION: Interval placement of a internal fixation hardware across a distal tibial fracture in near anatomic alignment with bimalleolar soft tissue swelling and postoperative changes. Healing fracture of the proximal fibular diaphysis in near anatomic alignment. Physician Sundeep Date Time Electronically viewed and signed by Physician Sundeep on 07/25/2017 11:31 /
[2017-07-25] MEDS ORDERED: HYDROmorphONE 1 MG/ML SYG IV STA ×2 (11:56→18:52)
--- NOTE | 2017-07-25 12:34 | CONS ---
Date/Time of Note Date/Time of Note DATE: 07/25/17 TIME: 12:32 Consult Date/Type/Reason Admit Date/Time Jul 23, 2017 at 16:00 Initial Consult Date Subjective Significant pain today Objective pulm-cta R LE- increased swelling Vital Signs Date Time Temp Pulse Resp B/P Pulse Ox O2 Delivery O2 Flow Rate FiO2 07/25/17 08:00 98.5 77 18 133/57 97 07/25/17 06:41 Room Air Intake and Output 07/24/17 07/24/17 07/25/17 14:59 22:59 06:59 Intake Total 360 ml 200 ml Output Total 2 ml Balance 358 ml 200 ml Results/Medications Result Diagram: 07/25/17 0556 07/25/17 0556 Results 24 hrs Laboratory Tests Test 07/25/17 05:56 White Blood Count 6.5 Red Blood Count 3.83 L Hemoglobin 10.1 L Hematocrit 31.8 L Mean Corpuscular Volume 83.0 Mean Corpuscular Hemoglobin 26.4 L Mean Corpuscular Hemoglobin Concent 31.8 L Red Cell Distribution Width 12.5 Platelet Count 282 Mean Platelet Volume 9.9 Neutrophils % 52.1 Lymphocytes % 35.1 Monocytes % 10.2 Eosinophils % 1.5 Basophils % 0.3 Nucleated Red Blood Cells % 0.0 Neutrophils # (Manual) 3.4 Lymphocytes # 2.3 Monocytes # 0.7 Eosinophils # 0.1 Basophils # 0.0 Nucleated Red Blood Cells # 0.0 Sodium Level 138 Potassium Level 4.4 Chloride Level 100 Carbon Dioxide Level 29 Anion Gap 13 Blood Urea Nitrogen 19 Creatinine 0.59 Glucose Level 111 Calcium Level 9.6 Phosphorus Level 4.4 Magnesium Level 1.9 Medications Current Medications Docusate Sodium (Colace) 100 mg BID PO Last administered on 07/25/17 10:00; Admin Dose 100 MG; Start 07/23/17 at 21:00 Acetaminophen (Tylenol Tab) 650 mg Q4H PRN PO PAIN; Start 07/23/17 at 18:30 Ondansetron HCl (Zofran Inj) 4 mg Q6H PRN IV NAUSEA AND/OR VOMITING; Start 07/23 at 18:30 Ranitidine HCl (Zantac) 150 mg DAILY PO Last administered on 07/25/17 10:01; Admin Dose 150 MG; Start 07/24/17 at 09:00 Duloxetine HCl (Cymbalta) 30 mg DAILY PO Last administered on 07/25/17 09:50; Admin Dose 30 MG; Start 07/24/17 at 09:00 Enoxaparin Sodium (Lovenox) 40 mg DAILY SC Last administered on 07/24/17 11:08 ; Admin Dose 40 MG; Start 07/24/17 at 09:00 Hydromorphone HCl (Dilaudid) 1 mg Q2H PRN IV PAIN Last administered on 11:29; Admin Dose 1 MG; Start 07/23/17 at 18:30 Lactobacillus Acidophilus/ Rhamnosus (Culturelle) 1 cap BID PO Last administered on 07/25/17 09:49; Admin Dose 1 CAP; Start 07/23/17 at 21:00 Letrozole (Femara) 2.5 mg DAILY PO Last administered on 07/25/17 09:52; Admin Dose 2.5 MG; Start 07/24/17 at 09:00 Acetaminophen (Tylenol Tab) 650 mg Q6H PRN PO FEVER; Start 07/23/17 at 18:30 Aspirin (Halfprin) 81 mg DAILY PO Last administered on 07/25/17 10:00; Admin Dose 81 MG; Start 07/24/17 at 09:00 Atorvastatin Calcium (Lipitor) 10 mg DAILY@21 PO Last administered on 07/24/17 20:52; Admin Dose 10 MG; Start 07/23/17 at 21:00 Bisacodyl (Dulcolax) 5 mg DAILY PRN PO CONTIPATION; Start 07/23/17 at 18:30 Calcium/Vitamin D (Oyster Shell/ Vit-D (500/200)) 1 tab BID PO Last administered on 07/25/17 10:01; Admin Dose 1 TAB; Start 07/23/17 at 21:00 Cholecalciferol (Vitamin D) 2,000 unit DAILY PO Last administered on 07/25/17 09:49; Admin Dose 2,000 UNIT; Start 07/24/17 at 09:00 Senna/Docusate Sodium (Senokot-S) 2 tab QHS PO Last administered on 07/24/17 20 :52; Admin Dose 2 TAB; Start 07/23/17 at 21:00 Acetaminophen/ Hydrocodone Bitart ([place] (10/325)) 2 tab Q4H PRN PO PAIN Last administered on 07/25/17t 06:49; Admin Dose 1 TAB; Start 07/24/17 at 14:30 Assessment/Plan Additional Assessment/Plan Rehab- Other orthopedic injury with right tibia and fibular fracture, status post ORIF. Activities as tolerated RLE swelling- check venous duplex Acute pain syndrome- adjust meds Constipation. Hypertension. Dyslipidemia. Osteoporosis. History of breast carcinoma. CARMEN MCGHEE MD Jul 25, 2017 12:34
--- NOTE | 2017-07-25 12:40 | RADRPT ---
PROCEDURE: US Lower extremity Venous. CLINICAL INDICATION: Right leg edema , pain TECHNIQUE: Multiple sonographic images of the right lower extremity deep venous system was obtaine d utilizing grayscale, color-flow, compressive sonography and doppler imaging with augmentation. Th e images were reviewed on a PACS workstation. COMPARISON: 07/21/17 FINDINGS: There is normal compressibility and flow within the right common femoral, femoral, posterior tibial, peroneal and popliteal veins. RPTAT: AA IMPRESSION: No sonographic evidence for deep venous thrombosis. .Eliud Gan MD, MD Date Time Electronically viewed and signed by .Eliud Gan MD, on 07/25/2017 12:40 .S/
[2017-07-25 13:38] LABS: BASOPHILS % 0.2 % (0.0-2.0); EOSINOPHILS # 0.1 10^3/ul (0.0-0.5); EOSINOPHILS % 1.2 % (0.0-7.0); HEMATOCRIT 32.6 % (37.0-47.0); HEMOGLOBIN 10.5 g/dl (12.0-16.0); LYMPHOCYTES % 34.6 % (15.0-51.0); MEAN CORPUSCULAR HEMOGLOBIN 26.3 pg (29.0-33.0); MEAN CORPUSCULAR HGB CONC 32.2 g/dl (32.0-37.0); MEAN CORPUSCULAR VOLUME 81.5 fl (82.0-101.0); MEAN PLATELET VOLUME 10.1 fl (7.4-10.4); MONOCYTE # 0.9 10^3/ul (0.3-0.9); MONOCYTES % 9.9 % (0.0-11.0); NEUTROPHILS % 53.5 % (39.0-77.0); PLATELET COUNT 307 10^3/UL (140-415); RED CELL DISTRIBUTION WIDTH 12.7 % (11.5-14.5); WHITE BLOOD COUNT 8.7 10^3/ul (4.8-10.8)
[2017-07-25] MEDS: ENOXAPARIN 40 MG/0.4 ML SYG SC SCH (15:02)
--- NOTE | 2017-07-25 15:49 | CONS ---
Date/Time of Note Date/Time of Note DATE: 07/25/17 TIME: 15:47 Consult Date/Type/Reason Admit Date/Time Jul 23, 2017 at 16:00 Initial Consult Date Type of Consultation: IM Subjective Increasing pain right leg. Objective Vital Signs Date Time Temp Pulse Resp B/P Pulse Ox O2 Delivery O2 Flow Rate FiO2 07/25/17 08:00 98.5 77 18 133/57 97 07/25/17 06:41 Room Air Intake and Output 07/24/17 07/24/17 07/25/17 15:00 23:00 07:00 Intake Total 360 ml 200 ml Output Total 2 ml Balance 358 ml 200 ml Exam PHYSICAL EXAMINATION: GENERAL APPEARANCE: On examination, a well-nourished well- developed lady comfortable at rest talking on the phone. No complaints. VITAL SIGNS: NECK: Supple. No JVD or lymphadenopathy. CARDIAC: S1, S2. No added sounds or murmurs. CHEST: Diminished air entry bilaterally. ABDOMEN: Soft, nontender. No guarding or rebound. EXTREMITIES: No signs of clubbing or edema. Right leg is elevated. Mild superior bruising around the ankle.Mild swelling. NEUROLOGIC: No neurological deficits. Results/Medications Result Diagram: 07/25/17 1245 07/25/17 0556 Results 24 hrs Laboratory Tests Test 07/25/17 05:56 07/25/17 12:45 White Blood Count 6.5 8.7 # Red Blood Count 3.83 L 4.00 L Hemoglobin 10.1 L 10.5 L Hematocrit 31.8 L 32.6 L Mean Corpuscular Volume 83.0 81.5 L Mean Corpuscular Hemoglobin 26.4 L 26.3 L Mean Corpuscular Hemoglobin Concent 31.8 L 32.2 Red Cell Distribution Width 12.5 12.7 Platelet Count 282 307 Mean Platelet Volume 9.9 10.1 Neutrophils % 52.1 53.5 Lymphocytes % 35.1 34.6 Monocytes % 10.2 9.9 Eosinophils % 1.5 1.2 Basophils % 0.3 0.2 Nucleated Red Blood Cells % 0.0 0.0 Neutrophils # (Manual) 3.4 4.7 Lymphocytes # 2.3 3.0 H Monocytes # 0.7 0.9 Eosinophils # 0.1 0.1 Basophils # 0.0 0.0 Nucleated Red Blood Cells # 0.0 0.0 Sodium Level 138 Potassium Level 4.4 Chloride Level 100 Carbon Dioxide Level 29 Anion Gap 13 Blood Urea Nitrogen 19 Creatinine 0.59 Glucose Level 111 Calcium Level 9.6 Phosphorus Level 4.4 Magnesium Level 1.9 Medications Current Medications Docusate Sodium (Colace) 100 mg BID PO Last administered on 07/25/17 10:00; Admin Dose 100 MG; Start 07/23/17 at 21:00 Acetaminophen (Tylenol Tab) 650 mg Q4H PRN PO PAIN; Start 07/23/17 at 18:30 Ondansetron HCl (Zofran Inj) 4 mg Q6H PRN IV NAUSEA AND/OR VOMITING; Start 07/23 at 18:30 Ranitidine HCl (Zantac) 150 mg DAILY PO Last administered on 07/25/17 10:01; Admin Dose 150 MG; Start 07/24/17 at 09:00 Duloxetine HCl (Cymbalta) 30 mg DAILY PO Last administered on 07/25/17 09:50; Admin Dose 30 MG; Start 07/24/17 at 09:00 Enoxaparin Sodium (Lovenox) 40 mg DAILY SC Last administered on 07/25/17 15:02 ; Admin Dose 40 MG; Start 07/24/17 at 09:00 Hydromorphone HCl (Dilaudid) 1 mg Q2H PRN IV PAIN Last administered on 15:03; Admin Dose 1 MG; Start 07/23/17 at 18:30 Lactobacillus Acidophilus/ Rhamnosus (Culturelle) 1 cap BID PO Last administered on 07/25/17 09:49; Admin Dose 1 CAP; Start 07/23/17 at 21:00 Letrozole (Femara) 2.5 mg DAILY PO Last administered on 07/25/17 09:52; Admin Dose 2.5 MG; Start 07/24/17 at 09:00 Acetaminophen (Tylenol Tab) 650 mg Q6H PRN PO FEVER; Start 07/23/17 at 18:30 Aspirin (Halfprin) 81 mg DAILY PO Last administered on 07/25/17 10:00; Admin Dose 81 MG; Start 07/24/17 at 09:00 Atorvastatin Calcium (Lipitor) 10 mg DAILY@21 PO Last administered on 07/24/17 20:52; Admin Dose 10 MG; Start 07/23/17 at 21:00 Bisacodyl (Dulcolax) 5 mg DAILY PRN PO CONTIPATION; Start 07/23/17 at 18:30 Calcium/Vitamin D ([place]yster Shell/ Vit-D (500/200)) 1 tab BID PO Last administered on 07/25/17 10:01; Admin Dose 1 TAB; Start 07/23/17 at 21:00 Cholecalciferol (Vitamin D) 2,000 unit DAILY PO Last administered on 07/25/17 09:49; Admin Dose 2,000 UNIT; Start 07/24/17 at 09:00 Senna/Docusate Sodium (Senokot-S) 2 tab QHS PO Last administered on 07/24/17 20 :52; Admin Dose 2 TAB; Start 07/23/17 at 21:00 Acetaminophen/ Hydrocodone Bitart ([place] (10/325)) 2 tab Q4H PRN PO PAIN Last administered on 07/25/17 06:49; Admin Dose 1 TAB; Start 07/24/17 at 14:30 Assessment/Plan Chief Complaint/Hosp Course IMPRESSION: 1. Syncopal episode. 2. Right tibia-fibula fracture status post intramedullary nailing. 3. History of breast cancer. 4. History of essential hypertension. PLAN: 1. Continue pain control. 2. Continue PT. 3. Continue current antihypertensives. 4. DVT and GI prophylaxis. no dvt noted. Problems: YUAN HARDY MD, [facility] Jul 25, 2017 15:49
[2017-07-25] MEDS: oxyCODONE (CR) 10 MG TAB [oxyCONTIN] PO SCH (19:09)
[2017-07-25 20:00] VITALS: BP 126/69; RESP 18
[2017-07-25] MEDS: ATORVASTATIN 10 MG TAB PO SCH (20:57)
[2017-07-25] MEDS: SENNA/DOCUSATE NA (8.6MG/50MG) TAB PO SCH (20:57)
[2017-07-25] MEDS: ZOLPIDEM 5 MG TAB PO PRN (22:04)
[2017-07-26 02:00] VITALS: BP 120/72; RESP 18
[2017-07-26] MEDS: HYDROmorphONE 1 MG/ML SYG IV PRN ×6 (05:16→22:15)
[2017-07-26 08:00] VITALS: BP 120/76; RESP 18
[2017-07-26] MEDS: ENOXAPARIN 40 MG/0.4 ML SYG SC SCH (08:38)
[2017-07-26] MEDS: CHOLECALCIFEROL 2,000 UNIT CAP PO SCH (08:39)
[2017-07-26] MEDS: RANITIDINE 150 MG TAB PO SCH (08:39)
[2017-07-26] MEDS: ASPIRIN (EC) 81 MG TAB PO SCH (08:39)
[2017-07-26] MEDS: CALCIUM/VITAMIN D (500/200) TAB PO SCH ×2 (08:39→21:22)
[2017-07-26] MEDS: DULOXETINE 30 MG CAP DR PO SCH (08:40)
[2017-07-26] MEDS: LACTOBACILLUS RHAMNOSUS CAP PO SCH ×2 (08:40→21:22)
[2017-07-26] MEDS: oxyCODONE (CR) 10 MG TAB [oxyCONTIN] PO SCH ×2 (08:41→18:00)
[2017-07-26] MEDS: DOCUSATE SODIUM 100 MG CAP PO SCH ×2 (08:41→21:28)
[2017-07-26] MEDS: LETROZOLE 2.5 MG TAB PO SCH (08:54)
--- NOTE | 2017-07-26 11:01 | CONS ---
Date/Time of Note Date/Time of Note DATE: 07/26/17 TIME: 11:00 Consult Date/Type/Reason Admit Date/Time Jul 23, 2017 at 16:00 Type of Consultation: IM Subjective Feeling better today Objective pulm-cta min assist ambulation Vital Signs Date Time Temp Pulse Resp B/P Pulse Ox O2 Delivery O2 Flow Rate FiO2 07/26/17 08:00 98.6 71 18 120/76 96 07/25/17 06:41 Room Air Intake and Output 07/25/17 07/25/17 07/26/17 15:00 23:00 07:00 Intake Total 800 ml 750 ml 360 ml Output Total 200 ml Balance 600 ml 750 ml 360 ml Results/Medications Result Diagram: 07/25/17 1245 07/25/17 0556 Results 24 hrs Laboratory Tests Test 07/25/17 12:45 White Blood Count 8.7 # Red Blood Count 4.00 L Hemoglobin 10.5 L Hematocrit 32.6 L Mean Corpuscular Volume 81.5 L Mean Corpuscular Hemoglobin 26.3 L Mean Corpuscular Hemoglobin Concent 32.2 Red Cell Distribution Width 12.7 Platelet Count 307 Mean Platelet Volume 10.1 Neutrophils % 53.5 Lymphocytes % 34.6 Monocytes % 9.9 Eosinophils % 1.2 Basophils % 0.2 Nucleated Red Blood Cells % 0.0 Neutrophils # (Manual) 4.7 Lymphocytes # 3.0 H Monocytes # 0.9 Eosinophils # 0.1 Basophils # 0.0 Nucleated Red Blood Cells # 0.0 Medications Current Medications Docusate Sodium (Colace) 100 mg BID PO Last administered on 07/26/17 08:41; Admin Dose 100 MG; Start 07/23/17 at 21:00 Acetaminophen (Tylenol Tab) 650 mg Q4H PRN PO PAIN; Start 07/23/17 at 18:30 Ondansetron HCl (Zofran Inj) 4 mg Q6H PRN IV NAUSEA AND/OR VOMITING; Start 07/23 at 18:30 Ranitidine HCl (Zantac) 150 mg DAILY PO Last administered on 07/26/17 08:39; Admin Dose 150 MG; Start 07/24/17 at 09:00 Duloxetine HCl (Cymbalta) 30 mg DAILY PO Last administered on 07/26/17 08:40; Admin Dose 30 MG; Start 07/24/17 at 09:00 Enoxaparin Sodium (Lovenox) 40 mg DAILY SC Last administered on 07/26/17 08:38 ; Admin Dose 40 MG; Start 07/24/17 at 09:00 Hydromorphone HCl (Dilaudid) 1 mg Q2H PRN IV PAIN Last administered on 08:42; Admin Dose 1 MG; Start 07/23/17 at 18:30 Lactobacillus Acidophilus/ Rhamnosus (Culturelle) 1 cap BID PO Last administered on 07/26/17 08:40; Admin Dose 1 CAP; Start 07/23/17 at 21:00 Letrozole (Femara) 2.5 mg DAILY PO Last administered on 07/26/17 08:54; Admin Dose 2.5 MG; Start 07/24/17 at 09:00 Acetaminophen (Tylenol Tab) 650 mg Q6H PRN PO FEVER; Start 07/23/17 at 18:30 Aspirin (Halfprin) 81 mg DAILY PO Last administered on 07/26/17 08:39; Admin Dose 81 MG; Start 07/24/17 at 09:00 Atorvastatin Calcium (Lipitor) 10 mg DAILY@21 PO Last administered on 07/25/17 20:57; Admin Dose 10 MG; Start 07/23/17 at 21:00 Bisacodyl (Dulcolax) 5 mg DAILY PRN PO CONTIPATION; Start 07/23/17 at 18:30 Calcium/Vitamin D (Oyster Shell/ Vit-D (500/200)) 1 tab BID PO Last administered on 07/26/17 08:39; Admin Dose 1 TAB; Start 07/23/17 at 21:00 Cholecalciferol (Vitamin D) 2,000 unit DAILY PO Last administered on 07/26/17 08:39; Admin Dose 2,000 UNIT; Start 07/24/17 at 09:00 Senna/Docusate Sodium (Senokot-S) 2 tab QHS PO Last administered on 07/25/17 20 :57; Admin Dose 2 TAB; Start 07/23/17 at 21:00 Acetaminophen/ Hydrocodone Bitart ([place] (10/325)) 2 tab Q4H PRN PO PAIN Last administered on 07/25/17 06:49; Admin Dose 1 TAB; Start 07/24/17 at 14:30 Zolpidem Tartrate (Ambien) 5 mg HS PRN PO INSOMNIA Last administered on 22:04; Admin Dose 5 MG; Start 07/25/17 at 19:00 Oxycodone HCl (Oxycontin) 10 mg 08,18 PO Last administered on 07/26/17 08:41; Admin Dose 10 MG; Start 07/25/17 at 19:10 Assessment/Plan Additional Assessment/Plan Rehab- Other orthopedic injury with right tibia and fibular fracture, status post ORIF. Much better today RLE swelling- decreased today. Doppler (-) Acute pain syndrome- better on current meds Constipation. Hypertension. Dyslipidemia. Osteoporosis. History of breast carcinoma. CARMEN MCGHEE MD Jul 26, 2017 11:01
--- NOTE | 2017-07-26 16:49 | CONS ---
Date/Time of Note Date/Time of Note DATE: 07/26/17 TIME: 16:48 Consult Date/Type/Reason Admit Date/Time Jul 23, 2017 at 16:00 Type of Consultation: IM Subjective Still having significant [ain in right leg, requiring frequent iv pain medication, Objective Vital Signs Date Time Temp Pulse Resp B/P Pulse Ox O2 Delivery O2 Flow Rate FiO2 07/26/17 08:00 98.6 71 18 120/76 96 07/25/17 06:41 Room Air Intake and Output 07/25/17 07/25/17 07/26/17 15:00 23:00 07:00 Intake Total 800 ml 750 ml 360 ml Output Total 200 ml Balance 600 ml 750 ml 360 ml Exam PHYSICAL EXAMINATION: GENERAL APPEARANCE: On examination, a well-nourished well- developed lady comfortable at rest talking on the phone. No complaints. VITAL SIGNS: NECK: Supple. No JVD or lymphadenopathy. CARDIAC: S1, S2. No added sounds or murmurs. CHEST: Diminished air entry bilaterally. ABDOMEN: Soft, nontender. No guarding or rebound. EXTREMITIES: No signs of clubbing or edema. Right leg is elevated. Mild superior bruising around the ankle.Mild swelling. NEUROLOGIC: No neurological deficits. Results/Medications Result Diagram: 07/25/17 1245 07/25/17 0556 Medications Current Medications Docusate Sodium (Colace) 100 mg BID PO Last administered on 07/26/17 08:41; Admin Dose 100 MG; Start 07/23/17 at 21:00 Acetaminophen (Tylenol Tab) 650 mg Q4H PRN PO PAIN; Start 07/23/17 at 18:30 Ondansetron HCl (Zofran Inj) 4 mg Q6H PRN IV NAUSEA AND/OR VOMITING; Start 07/23 at 18:30 Ranitidine HCl (Zantac) 150 mg DAILY PO Last administered on 07/26/17 08:39; Admin Dose 150 MG; Start 07/24/17 at 09:00 Duloxetine HCl (Cymbalta) 30 mg DAILY PO Last administered on 07/26/17 08:40; Admin Dose 30 MG; Start 07/24/17 at 09:00 Enoxaparin Sodium (Lovenox) 40 mg DAILY SC Last administered on 07/26/17 08:38 ; Admin Dose 40 MG; Start 07/24/17 at 09:00 Hydromorphone HCl (Dilaudid) 1 mg Q2H PRN IV PAIN Last administered on 11:15; Admin Dose 1 MG; Start 07/23/17 at 18:30 Lactobacillus Acidophilus/ Rhamnosus (Culturelle) 1 cap BID PO Last administered on 07/26/17 08:40; Admin Dose 1 CAP; Start 07/23/17 at 21:00 Letrozole (Femara) 2.5 mg DAILY PO Last administered on 07/26/17 08:54; Admin Dose 2.5 MG; Start 07/24/17 at 09:00 Acetaminophen (Tylenol Tab) 650 mg Q6H PRN PO FEVER; Start 07/23/17 at 18:30 Aspirin (Halfprin) 81 mg DAILY PO Last administered on 07/26/17 08:39; Admin Dose 81 MG; Start 07/24/17 at 09:00 Atorvastatin Calcium (Lipitor) 10 mg DAILY@21 PO Last administered on 07/25/17 20:57; Admin Dose 10 MG; Start 07/23/17 at 21:00 Bisacodyl (Dulcolax) 5 mg DAILY PRN PO CONTIPATION; Start 07/23/17 at 18:30 Calcium/Vitamin D (Oyster Shell/ Vit-D (500/200)) 1 tab BID PO Last administered on 07/26/17 08:39; Admin Dose 1 TAB; Start 07/23/17 at 21:00 Cholecalciferol (Vitamin D) 2,000 unit DAILY PO Last administered on 07/26/17 08:39; Admin Dose 2,000 UNIT; Start 07/24/17 at 09:00 Senna/Docusate Sodium (Senokot-S) 2 tab QHS PO Last administered on 07/25/17 20 :57; Admin Dose 2 TAB; Start 07/23/17 at 21:00 Acetaminophen/ Hydrocodone Bitart ([place] (10/325)) 2 tab Q4H PRN PO PAIN Last administered on 07/25/17 06:49; Admin Dose 1 TAB; Start 07/24/17 at 14:30 Zolpidem Tartrate (Ambien) 5 mg HS PRN PO INSOMNIA Last administered on 22:04; Admin Dose 5 MG; Start 07/25/17 at 19:00 Oxycodone HCl (Oxycontin) 10 mg 08,18 PO Last administered on 07/26/17t 08:41; Admin Dose 10 MG; Start 07/25/17 at 19:10 Assessment/Plan Chief Complaint/Hosp Course IMPRESSION: 1. Syncopal episode. 2. Right tibia-fibula fracture status post intramedullary nailing. 3. History of breast cancer. 4. History of essential hypertension. PLAN: 1. Continue pain control. 2. Continue PT. 3. Continue current antihypertensives. 4. DVT and GI prophylaxis. no dvt noted. Problems: YUAN HARDY MD, [facility] Jul 26, 2017 16:49
[2017-07-26 20:03] VITALS: BP 112/63; PULSE 88; RESP 17
[2017-07-26] MEDS: ATORVASTATIN 10 MG TAB PO SCH (21:22)
[2017-07-26] MEDS: SENNA/DOCUSATE NA (8.6MG/50MG) TAB PO SCH (21:28)
[2017-07-26] MEDS: ZOLPIDEM 5 MG TAB PO PRN (21:58)
[2017-07-27 02:15] VITALS: BP 115/60; PULSE 80; RESP 16
[2017-07-27] MEDS: HYDROmorphONE 1 MG/ML SYG IV PRN ×7 (04:54→21:58)
[2017-07-27 07:30] VITALS: BP 121/72; RESP 18
[2017-07-27] MEDS: oxyCODONE (CR) 10 MG TAB [oxyCONTIN] PO SCH ×2 (08:32→18:00)
[2017-07-27] MEDS: ENOXAPARIN 40 MG/0.4 ML SYG SC SCH (09:00)
[2017-07-27 09:22] VITALS: BP 124/61; PULSE 64; RESP 18
[2017-07-27] MEDS: DOCUSATE SODIUM 100 MG CAP PO SCH ×2 (09:41→20:49)
[2017-07-27] MEDS: ASPIRIN (EC) 81 MG TAB PO SCH (09:42)
[2017-07-27] MEDS: LACTOBACILLUS RHAMNOSUS CAP PO SCH ×2 (09:42→20:49)
[2017-07-27] MEDS: CHOLECALCIFEROL 2,000 UNIT CAP PO SCH (09:42)
[2017-07-27] MEDS: DULOXETINE 30 MG CAP DR PO SCH (09:42)
[2017-07-27] MEDS: LETROZOLE 2.5 MG TAB PO SCH (09:45)
--- NOTE | 2017-07-27 11:40 | CONS ---
Date/Time of Note Date/Time of Note DATE: 07/27/17 TIME: 11:40 Consult Date/Type/Reason Admit Date/Time Jul 23, 2017 at 16:00 Type of Consultation: IM Subjective Comfortable. Objective Vital Signs Date Time Temp Pulse Resp B/P Pulse Ox O2 Delivery O2 Flow Rate FiO2 07/27/17 09:22 64 18 124/61 100 Room Air 07/27/17 07:30 98.2 Intake and Output 07/26/17 07/26/17 07/27/17 14:59 22:59 06:59 Intake Total 800 ml 800 ml 100 ml Balance 800 ml 800 ml 100 ml Exam GENERAL APPEARANCE: On examination, a well-nourished well-developed lady comfortable at rest talking on the phone. No complaints. VITAL SIGNS: NECK: Supple. No JVD or lymphadenopathy. CARDIAC: S1, S2. No added sounds or murmurs. CHEST: Diminished air entry bilaterally. ABDOMEN: Soft, nontender. No guarding or rebound. EXTREMITIES: No signs of clubbing or edema. Right leg is elevated. Mild superior bruising around the ankle.Mild swelling. NEUROLOGIC: No neurological deficits. Results/Medications Result Diagram: 07/25/17 1245 07/25/17 0556 Medications Current Medications Docusate Sodium (Colace) 100 mg BID PO Last administered on 07/27/17 09:41; Admin Dose 100 MG; Start 07/23/17 at 21:00 Acetaminophen (Tylenol Tab) 650 mg Q4H PRN PO PAIN; Start 07/23/17 at 18:30 Ondansetron HCl (Zofran Inj) 4 mg Q6H PRN IV NAUSEA AND/OR VOMITING; Start 07/23 at 18:30 Ranitidine HCl (Zantac) 150 mg DAILY PO Last administered on 07/26/17 08:39; Admin Dose 150 MG; Start 07/24/17 at 09:00 Duloxetine HCl (Cymbalta) 30 mg DAILY PO Last administered on 07/27/17 09:42; Admin Dose 30 MG; Start 07/24/17 at 09:00 Enoxaparin Sodium (Lovenox) 40 mg DAILY SC Last administered on 07/26/17 08:38 ; Admin Dose 40 MG; Start 07/24/17 at 09:00 Hydromorphone HCl (Dilaudid) 1 mg Q2H PRN IV PAIN Last administered on 09:35; Admin Dose 1 MG; Start 07/23/17 at 18:30 Lactobacillus Acidophilus/ Rhamnosus (Culturelle) 1 cap BID PO Last administered on 07/27/17 09:42; Admin Dose 1 CAP; Start 07/23/17 at 21:00 Letrozole (Femara) 2.5 mg DAILY PO Last administered on 07/27/17 09:45; Admin Dose 2.5 MG; Start 07/24/17 at 09:00 Acetaminophen (Tylenol Tab) 650 mg Q6H PRN PO FEVER; Start 07/23/17 at 18:30 Aspirin (Halfprin) 81 mg DAILY PO Last administered on 07/27/17 09:42; Admin Dose 81 MG; Start 07/24/17 at 09:00 Atorvastatin Calcium (Lipitor) 10 mg DAILY@21 PO Last administered on 07/26/17 21:22; Admin Dose 10 MG; Start 07/23/17 at 21:00 Bisacodyl (Dulcolax) 5 mg DAILY PRN PO CONTIPATION; Start 07/23/17 at 18:30 Calcium/Vitamin D (Oyster Shell/ Vit-D (500/200)) 1 tab BID PO Last administered on 07/26/17 21:22; Admin Dose 1 TAB; Start 07/23/17 at 21:00 Cholecalciferol (Vitamin D) 2,000 unit DAILY PO Last administered on 07/27/17 09:42; Admin Dose 2,000 UNIT; Start 07/24/17 at 09:00 Senna/Docusate Sodium (Senokot-S) 2 tab QHS PO Last administered on 07/26/17 21 :28; Admin Dose 2 TAB; Start 07/23/17 at 21:00 Acetaminophen/ Hydrocodone Bitart ([place] (10/325)) 2 tab Q4H PRN PO PAIN Last administered on 07/25/17 06:49; Admin Dose 1 TAB; Start 07/24/17 at 14:30 Zolpidem Tartrate (Ambien) 5 mg HS PRN PO INSOMNIA Last administered on 21:58; Admin Dose 5 MG; Start 07/25/17 at 19:00 Oxycodone HCl (Oxycontin) 10 mg 08,18 PO Last administered on 07/27/17t 08:32; Admin Dose 10 MG; Start 07/25/17 at 19:10 Assessment/Plan Chief Complaint/Hosp Course IMPRESSION: 1. Syncopal episode. 2. Right tibia-fibula fracture status post intramedullary nailing. 3. History of breast cancer. 4. History of essential hypertension. PLAN: 1. Continue pain control. 2. Continue PT. 3. Continue current antihypertensives. 4. DVT and GI prophylaxis. Problems: YUAN HARDY MD, [facility] Jul 27, 2017 11:40
--- NOTE | 2017-07-27 11:46 | CONS ---
Date/Time of Note Date/Time of Note DATE: 07/27/17 TIME: 11:45 Consult Date/Type/Reason Admit Date/Time Jul 23, 2017 at 16:00 Type of Consultation: IM Subjective PT reports patient with anxiety while performing stair training today Objective pulm-cta abd-soft min assist transfers and ambulation Vital Signs Date Time Temp Pulse Resp B/P Pulse Ox O2 Delivery O2 Flow Rate FiO2 07/27/17 09:22 64 18 124/61 100 Room Air 07/27/17 07:30 98.2 Intake and Output 07/26/17 07/26/17 07/27/17 14:59 22:59 06:59 Intake Total 800 ml 800 ml 100 ml Balance 800 ml 800 ml 100 ml Results/Medications Result Diagram: 07/25/17 1245 07/25/17 0556 Medications Current Medications Docusate Sodium (Colace) 100 mg BID PO Last administered on 07/27/17 09:41; Admin Dose 100 MG; Start 07/23/17 at 21:00 Acetaminophen (Tylenol Tab) 650 mg Q4H PRN PO PAIN; Start 07/23/17 at 18:30 Ondansetron HCl (Zofran Inj) 4 mg Q6H PRN IV NAUSEA AND/OR VOMITING; Start 07/23 at 18:30 Ranitidine HCl (Zantac) 150 mg DAILY PO Last administered on 07/26/17 08:39; Admin Dose 150 MG; Start 07/24/17 at 09:00 Duloxetine HCl (Cymbalta) 30 mg DAILY PO Last administered on 07/27/17 09:42; Admin Dose 30 MG; Start 07/24/17 at 09:00 Enoxaparin Sodium (Lovenox) 40 mg DAILY SC Last administered on 07/26/17 08:38 ; Admin Dose 40 MG; Start 07/24/17 at 09:00 Hydromorphone HCl (Dilaudid) 1 mg Q2H PRN IV PAIN Last administered on 09:35; Admin Dose 1 MG; Start 07/23/17 at 18:30 Lactobacillus Acidophilus/ Rhamnosus (Culturelle) 1 cap BID PO Last administered on 07/27/17 09:42; Admin Dose 1 CAP; Start 07/23/17 at 21:00 Letrozole (Femara) 2.5 mg DAILY PO Last administered on 07/27/17 09:45; Admin Dose 2.5 MG; Start 07/24/17 at 09:00 Acetaminophen (Tylenol Tab) 650 mg Q6H PRN PO FEVER; Start 07/23/17 at 18:30 Aspirin (Halfprin) 81 mg DAILY PO Last administered on 07/27/17 09:42; Admin Dose 81 MG; Start 07/24/17 at 09:00 Atorvastatin Calcium (Lipitor) 10 mg DAILY@21 PO Last administered on 07/26/17 21:22; Admin Dose 10 MG; Start 07/23/17 at 21:00 Bisacodyl (Dulcolax) 5 mg DAILY PRN PO CONTIPATION; Start 07/23/17 at 18:30 Calcium/Vitamin D (Oyster Shell/ Vit-D (500/200)) 1 tab BID PO Last administered on 07/26/17 21:22; Admin Dose 1 TAB; Start 07/23/17 at 21:00 Cholecalciferol (Vitamin D) 2,000 unit DAILY PO Last administered on 07/27/17 09:42; Admin Dose 2,000 UNIT; Start 07/24/17 at 09:00 Senna/Docusate Sodium (Senokot-S) 2 tab QHS PO Last administered on 07/26/17 21 :28; Admin Dose 2 TAB; Start 07/23/17 at 21:00 Acetaminophen/ Hydrocodone Bitart ([place] (10/325)) 2 tab Q4H PRN PO PAIN Last administered on 07/25/17 06:49; Admin Dose 1 TAB; Start 07/24/17 at 14:30 Zolpidem Tartrate (Ambien) 5 mg HS PRN PO INSOMNIA Last administered on 21:58; Admin Dose 5 MG; Start 07/25/17 at 19:00 Oxycodone HCl (Oxycontin) 10 mg 08,18 PO Last administered on 07/27/17 08:32; Admin Dose 10 MG; Start 07/25/17 at 19:10 Assessment/Plan Additional Assessment/Plan Rehab- Other orthopedic injury with right tibia and fibular fracture, status post ORIF. Premedicate prior to therapy RLE swelling- decreased today. Doppler (-) Acute pain syndrome- better on current meds Constipation. Hypertension. Dyslipidemia. Osteoporosis. History of breast carcinoma. CARMEN MCGHEE MD Jul 27, 2017 11:46
[2017-07-27] MEDS: CALCIUM/VITAMIN D (500/200) TAB PO SCH ×2 (11:48→20:49)
[2017-07-27] MEDS: RANITIDINE 150 MG TAB PO SCH (11:48)
[2017-07-27] MEDS: HYDROCODONE/APAP (10/325) TAB PO PRN (11:48)
[2017-07-27 14:00] VITALS: BP 104/58; RESP 18
[2017-07-27] MEDS: SENNA/DOCUSATE NA (8.6MG/50MG) TAB PO SCH (20:49)
[2017-07-27] MEDS: ATORVASTATIN 10 MG TAB PO SCH (20:49)
[2017-07-27 21:00] VITALS: BP 109/62; RESP 18
[2017-07-28 02:00] VITALS: BP 120/70; RESP 18
[2017-07-28] MEDS: HYDROmorphONE 1 MG/ML SYG IV PRN ×4 (03:42→21:57)
[2017-07-28 07:30] VITALS: BP 110/60; RESP 18
[2017-07-28] MEDS: DULOXETINE 30 MG CAP DR PO SCH (09:13)
[2017-07-28] MEDS: LACTOBACILLUS RHAMNOSUS CAP PO SCH ×2 (09:13→21:57)
[2017-07-28] MEDS: CALCIUM/VITAMIN D (500/200) TAB PO SCH ×2 (09:14→21:57)
[2017-07-28] MEDS: oxyCODONE (CR) 10 MG TAB [oxyCONTIN] PO SCH ×2 (09:14→18:14)
[2017-07-28] MEDS: RANITIDINE 150 MG TAB PO SCH (09:16)
[2017-07-28] MEDS: ENOXAPARIN 40 MG/0.4 ML SYG SC SCH (09:16)
[2017-07-28] MEDS: CHOLECALCIFEROL 2,000 UNIT CAP PO SCH (09:16)
[2017-07-28] MEDS: ASPIRIN (EC) 81 MG TAB PO SCH (09:16)
[2017-07-28] MEDS: DOCUSATE SODIUM 100 MG CAP PO SCH ×2 (09:16→21:57)
--- NOTE | 2017-07-28 10:36 | CONS ---
Date/Time of Note Date/Time of Note DATE: 07/28/17 TIME: 10:35 Consult Date/Type/Reason Admit Date/Time Jul 23, 2017 at 16:00 Type of Consultation: IM Subjective Feeling better today Objective pulm-cta ext- decreased swelling Vital Signs Date Time Temp Pulse Resp B/P Pulse Ox O2 Delivery O2 Flow Rate FiO2 07/28/17 07:30 98.4 81 18 110/60 96 07/27/17 09:22 Room Air Intake and Output 07/27/17 07/27/17 07/28/17 14:59 22:59 06:59 Intake Total 520 ml 500 ml Balance 520 ml 500 ml Results/Medications Result Diagram: 07/25/17 1245 07/25/17 0556 Medications Current Medications Docusate Sodium (Colace) 100 mg BID PO Last administered on 07/28/17 09:16; Admin Dose 100 MG; Start 07/23/17 at 21:00 Acetaminophen (Tylenol Tab) 650 mg Q4H PRN PO PAIN; Start 07/23/17 at 18:30 Ondansetron HCl (Zofran Inj) 4 mg Q6H PRN IV NAUSEA AND/OR VOMITING; Start 07/23 at 18:30 Ranitidine HCl (Zantac) 150 mg DAILY PO Last administered on 07/28/17 09:16; Admin Dose 150 MG; Start 07/24/17 at 09:00 Duloxetine HCl (Cymbalta) 30 mg DAILY PO Last administered on 07/28/17 09:13; Admin Dose 30 MG; Start 07/24/17 at 09:00 Enoxaparin Sodium (Lovenox) 40 mg DAILY SC Last administered on 07/28/17 09:16 ; Admin Dose 40 MG; Start 07/24/17 at 09:00 Hydromorphone HCl (Dilaudid) 1 mg Q2H PRN IV PAIN Last administered on 03:42; Admin Dose 1 MG; Start 07/23/17 at 18:30 Lactobacillus Acidophilus/ Rhamnosus (Culturelle) 1 cap BID PO Last administered on 07/28/17 09:13; Admin Dose 1 CAP; Start 07/23/17 at 21:00 Letrozole (Femara) 2.5 mg DAILY PO Last administered on 07/27/17 09:45; Admin Dose 2.5 MG; Start 07/24/17 at 09:00 Acetaminophen (Tylenol Tab) 650 mg Q6H PRN PO FEVER; Start 07/23/17 at 18:30 Aspirin (Halfprin) 81 mg DAILY PO Last administered on 07/28/17 09:16; Admin Dose 81 MG; Start 07/24/17 at 09:00 Atorvastatin Calcium (Lipitor) 10 mg DAILY@21 PO Last administered on 07/27/17 20:49; Admin Dose 10 MG; Start 07/23/17 at 21:00 Bisacodyl (Dulcolax) 5 mg DAILY PRN PO CONTIPATION; Start 07/23/17 at 18:30 Calcium/Vitamin D (Oyster Shell/ Vit-D (500/200)) 1 tab BID PO Last administered on 07/28/17 09:14; Admin Dose 1 TAB; Start 07/23/17 at 21:00 Cholecalciferol (Vitamin D) 2,000 unit DAILY PO Last administered on 07/28/17 09:16; Admin Dose 2,000 UNIT; Start 07/24/17 at 09:00 Senna/Docusate Sodium (Senokot-S) 2 tab QHS PO Last administered on 07/27/17 20 :49; Admin Dose 2 TAB; Start 07/23/17 at 21:00 Acetaminophen/ Hydrocodone Bitart ([place] (10/325)) 2 tab Q4H PRN PO PAIN Last administered on 07/27/17 11:48; Admin Dose 2 TAB; Start 07/24/17 at 14:30 Zolpidem Tartrate (Ambien) 5 mg HS PRN PO INSOMNIA Last administered on 21:58; Admin Dose 5 MG; Start 07/25/17 at 19:00 Oxycodone HCl (Oxycontin) 10 mg 08,18 PO Last administered on 07/28/17 09:14; Admin Dose 10 MG; Start 07/25/17 at 19:10 Assessment/Plan Additional Assessment/Plan Rehab- Other orthopedic injury with right tibia and fibular fracture, status post ORIF. Continue rehab program and premedicate prior to therapy Acute pain syndrome- continue current meds Constipation-bowel program working Hypertension. Dyslipidemia. Osteoporosis. History of breast carcinoma. CARMEN MCGHEE MD Jul 28, 2017 10:36
[2017-07-28] MEDS: LETROZOLE 2.5 MG TAB PO SCH (12:01)
[2017-07-28 14:00] VITALS: BP 104/63; RESP 20
--- NOTE | 2017-07-28 15:01 | CONS ---
Date/Time of Note Date/Time of Note DATE: 07/28/17 TIME: 14:57 Consult Date/Type/Reason Admit Date/Time Jul 23, 2017 at 16:00 Type of Consultation: IM Subjective Comfortable this morning. Objective Vital Signs Date Time Temp Pulse Resp B/P Pulse Ox O2 Delivery O2 Flow Rate FiO2 07/28/17 07:30 98.4 81 18 110/60 96 07/27/17 09:22 Room Air Intake and Output 07/27/17 07/27/17 07/28/17 15:00 23:00 07:00 Intake Total 520 ml 500 ml Balance 520 ml 500 ml Exam Exam GENERAL APPEARANCE: On examination, a well-nourished well-developed lady comfortable at rest talking on the phone. No complaints. VITAL SIGNS: NECK: Supple. No JVD or lymphadenopathy. CARDIAC: S1, S2. No added sounds or murmurs. CHEST: Diminished air entry bilaterally. ABDOMEN: Soft, nontender. No guarding or rebound. EXTREMITIES: No signs of clubbing or edema. Right leg is elevated. Mild superior bruising around the ankle.Mild swelling. NEUROLOGIC: No neurological deficits. Results/Medications Result Diagram: 07/25/17 1245 07/25/17 0556 Medications Current Medications Docusate Sodium (Colace) 100 mg BID PO Last administered on 07/28/17 09:16; Admin Dose 100 MG; Start 07/23/17 at 21:00 Acetaminophen (Tylenol Tab) 650 mg Q4H PRN PO PAIN; Start 07/23/17 at 18:30 Ondansetron HCl (Zofran Inj) 4 mg Q6H PRN IV NAUSEA AND/OR VOMITING; Start 07/23 at 18:30 Ranitidine HCl (Zantac) 150 mg DAILY PO Last administered on 07/28/17 09:16; Admin Dose 150 MG; Start 07/24/17 at 09:00 Duloxetine HCl (Cymbalta) 30 mg DAILY PO Last administered on 07/28/17 09:13; Admin Dose 30 MG; Start 07/24/17 at 09:00 Enoxaparin Sodium (Lovenox) 40 mg DAILY SC Last administered on 07/28/17 09:16 ; Admin Dose 40 MG; Start 07/24/17 at 09:00 Hydromorphone HCl (Dilaudid) 1 mg Q2H PRN IV PAIN Last administered on 12:04; Admin Dose 1 MG; Start 07/23/17 at 18:30 Lactobacillus Acidophilus/ Rhamnosus (Culturelle) 1 cap BID PO Last administered on 07/28/17 09:13; Admin Dose 1 CAP; Start 07/23/17 at 21:00 Letrozole (Femara) 2.5 mg DAILY PO Last administered on 07/28/17 12:01; Admin Dose 2.5 MG; Start 07/24/17 at 09:00 Acetaminophen (Tylenol Tab) 650 mg Q6H PRN PO FEVER; Start 07/23/17 at 18:30 Aspirin (Halfprin) 81 mg DAILY PO Last administered on 07/28/17 09:16; Admin Dose 81 MG; Start 07/24/17 at 09:00 Atorvastatin Calcium (Lipitor) 10 mg DAILY@21 PO Last administered on 07/27/17 20:49; Admin Dose 10 MG; Start 07/23/17 at 21:00 Bisacodyl (Dulcolax) 5 mg DAILY PRN PO CONTIPATION; Start 07/23/17 at 18:30 Calcium/Vitamin D (Oyster Shell/ Vit-D (500/200)) 1 tab BID PO Last administered on 07/28/17 09:14; Admin Dose 1 TAB; Start 07/23/17 at 21:00 Cholecalciferol (Vitamin D) 2,000 unit DAILY PO Last administered on 07/28/17 09:16; Admin Dose 2,000 UNIT; Start 07/24/17 at 09:00 Senna/Docusate Sodium (Senokot-S) 2 tab QHS PO Last administered on 07/27/17 20 :49; Admin Dose 2 TAB; Start 07/23/17 at 21:00 Acetaminophen/ Hydrocodone Bitart ([place] (10/325)) 2 tab Q4H PRN PO PAIN Last administered on 07/27/17 11:48; Admin Dose 2 TAB; Start 07/24/17 at 14:30 Zolpidem Tartrate (Ambien) 5 mg HS PRN PO INSOMNIA Last administered on 21:58; Admin Dose 5 MG; Start 07/25/17 at 19:00 Oxycodone HCl (Oxycontin) 10 mg 08,18 PO Last administered on 07/28/17t 09:14; Admin Dose 10 MG; Start 07/25/17 at 19:10 Assessment/Plan Chief Complaint/Hosp Course IMPRESSION: 1. Syncopal episode. 2. Right tibia-fibula fracture status post intramedullary nailing. 3. History of breast cancer. 4. History of essential hypertension. PLAN: 1. Continue pain control. 2. Continue PT. 3. Continue current antihypertensives. 4. DVT and GI prophylaxis. encourage OOB. Problems: YUAN HARDY MD, [facility] Jul 28, 2017 15:01
[2017-07-28 20:00] VITALS: BP 115/63; RESP 18
[2017-07-28] MEDS: ZOLPIDEM 5 MG TAB PO PRN (21:56)
[2017-07-28] MEDS: SENNA/DOCUSATE NA (8.6MG/50MG) TAB PO SCH (21:57)
[2017-07-28] MEDS: ATORVASTATIN 10 MG TAB PO SCH (21:57)
[2017-07-29 02:00] VITALS: BP 110/65; RESP 18
[2017-07-29] MEDS: HYDROmorphONE 1 MG/ML SYG IV PRN ×3 (04:21→19:41)
[2017-07-29] MEDS: ENOXAPARIN 40 MG/0.4 ML SYG SC SCH (08:51)
[2017-07-29] MEDS: DULOXETINE 30 MG CAP DR PO SCH (08:52)
[2017-07-29] MEDS: RANITIDINE 150 MG TAB PO SCH (08:53)
[2017-07-29] MEDS: CALCIUM/VITAMIN D (500/200) TAB PO SCH ×2 (08:53→22:01)
[2017-07-29] MEDS: DOCUSATE SODIUM 100 MG CAP PO SCH ×2 (08:53→22:02)
[2017-07-29] MEDS: LACTOBACILLUS RHAMNOSUS CAP PO SCH ×2 (08:53→22:02)
[2017-07-29] MEDS: CHOLECALCIFEROL 2,000 UNIT CAP PO SCH (08:54)
[2017-07-29] MEDS: ASPIRIN (EC) 81 MG TAB PO SCH (08:54)
[2017-07-29] MEDS: oxyCODONE (CR) 10 MG TAB [oxyCONTIN] PO SCH ×2 (08:54→17:41)
[2017-07-29] MEDS: LETROZOLE 2.5 MG TAB PO SCH (08:54)
--- NOTE | 2017-07-29 11:58 | CONS ---
Date/Time of Note Date/Time of Note DATE: 07/29/17 TIME: 11:57 Consult Date/Type/Reason Admit Date/Time Jul 23, 2017 at 16:00 Type of Consultation: IM Subjective Pain improved Objective Lungs clear abdomen soft Guard assist ambulation Vital Signs Date Time Temp Pulse Resp B/P Pulse Ox O2 Delivery O2 Flow Rate FiO2 07/29/17 02:00 98.5 85 18 110/65 95 07/27/17 09:22 Room Air Intake and Output 07/28/17 07/28/17 07/29/17 15:00 23:00 07:00 Intake Total 1040 ml 500 ml Balance 1040 ml 500 ml Results/Medications Result Diagram: 07/25/17 1245 07/25/17 0556 Medications Current Medications Docusate Sodium (Colace) 100 mg BID PO Last administered on 07/29/17 08:53; Admin Dose 100 MG; Start 07/23/17 at 21:00 Acetaminophen (Tylenol Tab) 650 mg Q4H PRN PO PAIN; Start 07/23/17 at 18:30 Ondansetron HCl (Zofran Inj) 4 mg Q6H PRN IV NAUSEA AND/OR VOMITING; Start 07/23 at 18:30 Ranitidine HCl (Zantac) 150 mg DAILY PO Last administered on 07/29/17 08:53; Admin Dose 150 MG; Start 07/24/17 at 09:00 Duloxetine HCl (Cymbalta) 30 mg DAILY PO Last administered on 07/29/17 08:52; Admin Dose 30 MG; Start 07/24/17 at 09:00 Enoxaparin Sodium (Lovenox) 40 mg DAILY SC Last administered on 07/29/17 08:51 ; Admin Dose 40 MG; Start 07/24/17 at 09:00 Hydromorphone HCl (Dilaudid) 1 mg Q2H PRN IV PAIN Last administered on 10:35; Admin Dose 1 MG; Start 07/23/17 at 18:30 Lactobacillus Acidophilus/ Rhamnosus (Culturelle) 1 cap BID PO Last administered on 07/29/17 08:53; Admin Dose 1 CAP; Start 07/23/17 at 21:00 Letrozole (Femara) 2.5 mg DAILY PO Last administered on 07/29/17 08:54; Admin Dose 2.5 MG; Start 07/24/17 at 09:00 Acetaminophen (Tylenol Tab) 650 mg Q6H PRN PO FEVER; Start 07/23/17 at 18:30 Aspirin (Halfprin) 81 mg DAILY PO Last administered on 07/29/17 08:54; Admin Dose 81 MG; Start 07/24/17 at 09:00 Atorvastatin Calcium (Lipitor) 10 mg DAILY@21 PO Last administered on 07/28/17 21:57; Admin Dose 10 MG; Start 07/23/17 at 21:00 Bisacodyl (Dulcolax) 5 mg DAILY PRN PO CONTIPATION; Start 07/23/17 at 18:30 Calcium/Vitamin D (Oyster Shell/ Vit-D (500/200)) 1 tab BID PO Last administered on 07/29/17 08:53; Admin Dose 1 TAB; Start 07/23/17 at 21:00 Cholecalciferol (Vitamin D) 2,000 unit DAILY PO Last administered on 07/29/17 08:54; Admin Dose 2,000 UNIT; Start 07/24/17 at 09:00 Senna/Docusate Sodium (Senokot-S) 2 tab QHS PO Last administered on 07/28/17 21 :57; Admin Dose 2 TAB; Start 07/23/17 at 21:00 Acetaminophen/ Hydrocodone Bitart ([place] (10/325)) 2 tab Q4H PRN PO PAIN Last administered on 07/27/17 11:48; Admin Dose 2 TAB; Start 07/24/17 at 14:30 Zolpidem Tartrate (Ambien) 5 mg HS PRN PO INSOMNIA Last administered on 21:56; Admin Dose 5 MG; Start 07/25/17 at 19:00 Oxycodone HCl (Oxycontin) 10 mg 08,18 PO Last administered on 07/29/17 08:54; Admin Dose 10 MG; Start 07/25/17 at 19:10 Assessment/Plan Additional Assessment/Plan Rehab- Other orthopedic injury with right tibia and fibular fracture, status post ORIF. Overall significant improvement in pain, decreased swelling, and significant improvements in mobility; continue treatment plan Acute pain syndrome- continue current meds Constipation-bowel program working Hypertension. Dyslipidemia. Osteoporosis. History of breast carcinoma. CARMEN MCGHEE MD Jul 29, 2017 11:58
--- NOTE | 2017-07-29 12:06 | CONS ---
Date/Time of Note Date/Time of Note DATE: 07/29/17 TIME: 12:04 Consult Date/Type/Reason Admit Date/Time Jul 23, 2017 at 16:00 Type of Consultation: IM Subjective Comfortable, OOB having PT. Objective Vital Signs Date Time Temp Pulse Resp B/P Pulse Ox O2 Delivery O2 Flow Rate FiO2 07/29/17 02:00 98.5 85 18 110/65 95 07/27/17 09:22 Room Air Intake and Output 07/28/17 07/28/17 07/29/17 15:00 23:00 07:00 Intake Total 1040 ml 500 ml Balance 1040 ml 500 ml Exam GENERAL APPEARANCE: On examination, a well-nourished well-developed lady comfortable at rest talking on the phone. No complaints. VITAL SIGNS: NECK: Supple. No JVD or lymphadenopathy. CARDIAC: S1, S2. No added sounds or murmurs. CHEST: Diminished air entry bilaterally. ABDOMEN: Soft, nontender. No guarding or rebound. EXTREMITIES: No signs of clubbing or edema. Right leg is elevated. Mild superior bruising around the ankle.Mild swelling. NEUROLOGIC: No neurological deficits. Results/Medications Result Diagram: 07/25/17 1245 07/25/17 0556 Medications Current Medications Docusate Sodium (Colace) 100 mg BID PO Last administered on 07/29/17 08:53; Admin Dose 100 MG; Start 07/23/17 at 21:00 Acetaminophen (Tylenol Tab) 650 mg Q4H PRN PO PAIN; Start 07/23/17 at 18:30 Ondansetron HCl (Zofran Inj) 4 mg Q6H PRN IV NAUSEA AND/OR VOMITING; Start 07/23 at 18:30 Ranitidine HCl (Zantac) 150 mg DAILY PO Last administered on 07/29/17 08:53; Admin Dose 150 MG; Start 07/24/17 at 09:00 Duloxetine HCl (Cymbalta) 30 mg DAILY PO Last administered on 07/29/17 08:52; Admin Dose 30 MG; Start 07/24/17 at 09:00 Enoxaparin Sodium (Lovenox) 40 mg DAILY SC Last administered on 07/29/17 08:51 ; Admin Dose 40 MG; Start 07/24/17 at 09:00 Hydromorphone HCl (Dilaudid) 1 mg Q2H PRN IV PAIN Last administered on 10:35; Admin Dose 1 MG; Start 07/23/17 at 18:30 Lactobacillus Acidophilus/ Rhamnosus (Culturelle) 1 cap BID PO Last administered on 07/29/17 08:53; Admin Dose 1 CAP; Start 07/23/17 at 21:00 Letrozole (Femara) 2.5 mg DAILY PO Last administered on 07/29/17 08:54; Admin Dose 2.5 MG; Start 07/24/17 at 09:00 Acetaminophen (Tylenol Tab) 650 mg Q6H PRN PO FEVER; Start 07/23/17 at 18:30 Aspirin (Halfprin) 81 mg DAILY PO Last administered on 07/29/17 08:54; Admin Dose 81 MG; Start 07/24/17 at 09:00 Atorvastatin Calcium (Lipitor) 10 mg DAILY@21 PO Last administered on 07/28/17 21:57; Admin Dose 10 MG; Start 07/23/17 at 21:00 Bisacodyl (Dulcolax) 5 mg DAILY PRN PO CONTIPATION; Start 07/23/17 at 18:30 Calcium/Vitamin D (Oyster Shell/ Vit-D (500/200)) 1 tab BID PO Last administered on 07/29/17 08:53; Admin Dose 1 TAB; Start 07/23/17 at 21:00 Cholecalciferol (Vitamin D) 2,000 unit DAILY PO Last administered on 07/29/17 08:54; Admin Dose 2,000 UNIT; Start 07/24/17 at 09:00 Senna/Docusate Sodium (Senokot-S) 2 tab QHS PO Last administered on 07/28/17 21 :57; Admin Dose 2 TAB; Start 07/23/17 at 21:00 Acetaminophen/ Hydrocodone Bitart ([place] (10/325)) 2 tab Q4H PRN PO PAIN Last administered on 07/27/17 11:48; Admin Dose 2 TAB; Start 07/24/17 at 14:30 Zolpidem Tartrate (Ambien) 5 mg HS PRN PO INSOMNIA Last administered on 21:56; Admin Dose 5 MG; Start 07/25/17 at 19:00 Oxycodone HCl (Oxycontin) 10 mg 08,18 PO Last administered on 07/29/17t 08:54; Admin Dose 10 MG; Start 07/25/17 at 19:10 Assessment/Plan Chief Complaint/Hosp Course IMPRESSION: 1. Syncopal episode. 2. Right tibia-fibula fracture status post intramedullary nailing. 3. History of breast cancer. 4. History of essential hypertension. PLAN: 1. Continue pain control. 2. Continue PT. 3. Continue current antihypertensives. 4. DVT and GI prophylaxis. Problems: YUAN HARDY MD, [facility] Jul 29, 2017 12:06
[2017-07-29] MEDS: HYDROCODONE/APAP (10/325) TAB PO PRN ×2 (13:05→22:01)
[2017-07-29] MEDS: ZOLPIDEM 5 MG TAB PO PRN (22:03)
[2017-07-29] MEDS: ATORVASTATIN 10 MG TAB PO SCH (22:03)
[2017-07-29] MEDS: SENNA/DOCUSATE NA (8.6MG/50MG) TAB PO SCH (22:03)
[2017-07-30] MEDS: HYDROmorphONE 1 MG/ML SYG IV PRN ×7 (06:41→21:42)
[2017-07-30] MEDS: DULOXETINE 30 MG CAP DR PO SCH (09:18)
[2017-07-30] MEDS: LACTOBACILLUS RHAMNOSUS CAP PO SCH ×2 (09:18→21:39)
[2017-07-30] MEDS: DOCUSATE SODIUM 100 MG CAP PO SCH ×2 (09:18→21:39)
[2017-07-30] MEDS: RANITIDINE 150 MG TAB PO SCH (09:19)
[2017-07-30] MEDS: LETROZOLE 2.5 MG TAB PO SCH (09:19)
[2017-07-30] MEDS: CHOLECALCIFEROL 2,000 UNIT CAP PO SCH (09:19)
[2017-07-30] MEDS: CALCIUM/VITAMIN D (500/200) TAB PO SCH ×2 (09:19→21:39)
[2017-07-30] MEDS: ASPIRIN (EC) 81 MG TAB PO SCH (09:19)
[2017-07-30] MEDS: ENOXAPARIN 40 MG/0.4 ML SYG SC SCH (09:21)
[2017-07-30] MEDS: oxyCODONE (CR) 10 MG TAB [oxyCONTIN] PO SCH ×2 (10:25→18:16)
[2017-07-30] MEDS: HYDROCODONE/APAP (10/325) TAB PO PRN (11:56)
[2017-07-30 19:56] VITALS: BP 115/67; RESP 18
[2017-07-30] MEDS: SENNA/DOCUSATE NA (8.6MG/50MG) TAB PO SCH (21:39)
[2017-07-30] MEDS: ZOLPIDEM 5 MG TAB PO PRN (21:39)
[2017-07-30] MEDS: ATORVASTATIN 10 MG TAB PO SCH (21:39)
[2017-07-31 02:00] VITALS: BP 122/58; RESP 18
[2017-07-31] MEDS: HYDROmorphONE 1 MG/ML SYG IV PRN ×3 (02:24→19:21)
[2017-07-31] MEDS: HYDROCODONE/APAP (10/325) TAB PO PRN ×2 (06:36→21:56)
[2017-07-31 07:30] VITALS: BP 99/58; RESP 18
[2017-07-31] MEDS: ENOXAPARIN 40 MG/0.4 ML SYG SC SCH (08:50)
[2017-07-31] MEDS: CHOLECALCIFEROL 2,000 UNIT CAP PO SCH (08:50)
[2017-07-31] MEDS: RANITIDINE 150 MG TAB PO SCH (08:50)
[2017-07-31] MEDS: DOCUSATE SODIUM 100 MG CAP PO SCH ×2 (08:51→21:55)
[2017-07-31] MEDS: oxyCODONE (CR) 10 MG TAB [oxyCONTIN] PO SCH ×2 (08:51→17:53)
[2017-07-31] MEDS: LACTOBACILLUS RHAMNOSUS CAP PO SCH ×2 (08:51→21:55)
[2017-07-31] MEDS: LETROZOLE 2.5 MG TAB PO SCH (08:51)
[2017-07-31] MEDS: CALCIUM/VITAMIN D (500/200) TAB PO SCH ×2 (08:51→21:55)
[2017-07-31] MEDS: DULOXETINE 30 MG CAP DR PO SCH (08:51)
[2017-07-31] MEDS: ASPIRIN (EC) 81 MG TAB PO SCH (08:51)
--- NOTE | 2017-07-31 12:02 | CONS ---
Date/Time of Note Date/Time of Note DATE: 07/31/17 TIME: 11:58 Consult Date/Type/Reason Admit Date/Time Jul 23, 2017 at 16:00 Type of Consultation: IM Objective Vital Signs Date Time Temp Pulse Resp B/P Pulse Ox O2 Delivery O2 Flow Rate FiO2 07/31/17 07:30 98.3 73 18 99/58 95 07/27/17 09:22 Room Air Intake and Output 07/30/17 07/30/17 07/31/17 15:00 23:00 07:00 Intake Total 700 ml 500 ml Balance 700 ml 500 ml INTERDISCIPLINARY TEAM CONFERENCE BOWEL- Cont BLADDER-Cont SKIN- intact OT- DRESSING-min BATHING-min TOILETING-min PT- BED MOBILITY-cga TRANSFERS-cga AMBULATION-cga 125 A/P- Interdisciplinary team conference held today. Please see interdisciplinary sheet. Working toward d.c. on 08/04 with post discharge follow up of physical therapy, occupational therapy. Results/Medications Medications Current Medications Docusate Sodium (Colace) 100 mg BID PO Last administered on 07/31/17 08:51; Admin Dose 100 MG; Start 07/23/17 at 21:00 Acetaminophen (Tylenol Tab) 650 mg Q4H PRN PO PAIN; Start 07/23/17 at 18:30 Ondansetron HCl (Zofran Inj) 4 mg Q6H PRN IV NAUSEA AND/OR VOMITING; Start 07/23 at 18:30 Ranitidine HCl (Zantac) 150 mg DAILY PO Last administered on 07/31/17 08:50; Admin Dose 150 MG; Start 07/24/17 at 09:00 Duloxetine HCl (Cymbalta) 30 mg DAILY PO Last administered on 07/31/17 08:51; Admin Dose 30 MG; Start 07/24/17 at 09:00 Enoxaparin Sodium (Lovenox) 40 mg DAILY SC Last administered on 07/31/17 08:50 ; Admin Dose 40 MG; Start 07/24/17 at 09:00 Hydromorphone HCl (Dilaudid) 1 mg Q2H PRN IV PAIN Last administered on 02:24; Admin Dose 1 MG; Start 07/23/17 at 18:30 Lactobacillus Acidophilus/ Rhamnosus (Culturelle) 1 cap BID PO Last administered on 07/31/17 08:51; Admin Dose 1 CAP; Start 07/23/17 at 21:00 Letrozole (Femara) 2.5 mg DAILY PO Last administered on 07/31/17 08:51; Admin Dose 2.5 MG; Start 07/24/17 at 09:00 Acetaminophen (Tylenol Tab) 650 mg Q6H PRN PO FEVER; Start 07/23/17 at 18:30 Aspirin (Halfprin) 81 mg DAILY PO Last administered on 07/31/17 08:51; Admin Dose 81 MG; Start 07/24/17 at 09:00 Atorvastatin Calcium (Lipitor) 10 mg DAILY@21 PO Last administered on 21:39; Admin Dose 10 MG; Start 07/23/17 at 21:00 Bisacodyl (Dulcolax) 5 mg DAILY PRN PO CONTIPATION; Start 07/23/17 at 18:30 Calcium/Vitamin D (Oyster Shell/ Vit-D (500/200)) 1 tab BID PO Last administered on 07/31/17 08:51; Admin Dose 1 TAB; Start 07/23/17 at 21:00 Cholecalciferol (Vitamin D) 2,000 unit DAILY PO Last administered on 07/31/17 08:50; Admin Dose 2,000 UNIT; Start 07/24/17 at 09:00 Senna/Docusate Sodium (Senokot-S) 2 tab QHS PO Last administered on 07/30/17 21:39; Admin Dose 2 TAB; Start 07/23/17 at 21:00 Acetaminophen/ Hydrocodone Bitart ([place] (10/325)) 2 tab Q4H PRN PO PAIN Last administered on 07/31/17 06:36; Admin Dose 2 TAB; Start 07/24/17 at 14:30 Zolpidem Tartrate (Ambien) 5 mg HS PRN PO INSOMNIA Last administered on 21:39; Admin Dose 5 MG; Start 07/25/17 at 19:00 Oxycodone HCl (Oxycontin) 10 mg 18 PO Last administered on 07/31/17 08:51; Admin Dose 10 MG; Start 07/25/17 at 19:10 CARMEN MCGHEE MD Jul 31, 2017 12:02
--- NOTE | 2017-07-31 12:38 | CONS ---
Date/Time of Note Date/Time of Note DATE: 07/31/17 TIME: 12:37 Consult Date/Type/Reason Admit Date/Time Jul 23, 2017 at 16:00 Type of Consultation: IM Subjective Improving. Less pain. Continues physical therapy. Objective Vital Signs Date Time Temp Pulse Resp B/P Pulse Ox O2 Delivery O2 Flow Rate FiO2 07/31/17 07:30 98.3 73 18 99/58 95 07/27/17 09:22 Room Air Intake and Output 07/30/17 07/30/17 07/31/17 15:00 23:00 07:00 Intake Total 700 ml 500 ml Balance 700 ml 500 ml Exam GENERAL APPEARANCE: On examination, a well-nourished well-developed lady comfortable at rest talking on the phone. No complaints. VITAL SIGNS: NECK: Supple. No JVD or lymphadenopathy. CARDIAC: S1, S2. No added sounds or murmurs. CHEST: Diminished air entry bilaterally. ABDOMEN: Soft, nontender. No guarding or rebound. EXTREMITIES: No signs of clubbing or edema. Right leg is elevated. Mild superior bruising around the ankle.Mild swelling. NEUROLOGIC: No neurological deficits Results/Medications Medications Current Medications Docusate Sodium (Colace) 100 mg BID PO Last administered on 07/31/17 08:51; Admin Dose 100 MG; Start 07/23/17 at 21:00 Acetaminophen (Tylenol Tab) 650 mg Q4H PRN PO PAIN; Start 07/23/17 at 18:30 Ondansetron HCl (Zofran Inj) 4 mg Q6H PRN IV NAUSEA AND/OR VOMITING; Start 07/23 at 18:30 Ranitidine HCl (Zantac) 150 mg DAILY PO Last administered on 07/31/17 08:50; Admin Dose 150 MG; Start 07/24/17 at 09:00 Duloxetine HCl (Cymbalta) 30 mg DAILY PO Last administered on 07/31/17 08:51; Admin Dose 30 MG; Start 07/24/17 at 09:00 Enoxaparin Sodium (Lovenox) 40 mg DAILY SC Last administered on 07/31/17 08:50 ; Admin Dose 40 MG; Start 07/24/17 at 09:00 Hydromorphone HCl (Dilaudid) 1 mg Q2H PRN IV PAIN Last administered on 02:24; Admin Dose 1 MG; Start 07/23/17 at 18:30 Lactobacillus Acidophilus/ Rhamnosus (Culturelle) 1 cap BID PO Last administered on 07/31/17 08:51; Admin Dose 1 CAP; Start 07/23/17 at 21:00 Letrozole (Femara) 2.5 mg DAILY PO Last administered on 07/31/17 08:51; Admin Dose 2.5 MG; Start 07/24/17 at 09:00 Acetaminophen (Tylenol Tab) 650 mg Q6H PRN PO FEVER; Start 07/23/17 at 18:30 Aspirin (Halfprin) 81 mg DAILY PO Last administered on 07/31/17 08:51; Admin Dose 81 MG; Start 07/24/17 at 09:00 Atorvastatin Calcium (Lipitor) 10 mg DAILY@21 PO Last administered on 21:39; Admin Dose 10 MG; Start 07/23/17 at 21:00 Bisacodyl (Dulcolax) 5 mg DAILY PRN PO CONTIPATION; Start 07/23/17 at 18:30 Calcium/Vitamin D (Oyster Shell/ Vit-D (500/200)) 1 tab BID PO Last administered on 07/31/17 08:51; Admin Dose 1 TAB; Start 07/23/17 at 21:00 Cholecalciferol (Vitamin D) 2,000 unit DAILY PO Last administered on 07/31/17 08:50; Admin Dose 2,000 UNIT; Start 07/24/17 at 09:00 Senna/Docusate Sodium (Senokot-S) 2 tab QHS PO Last administered on 07/30/17 21:39; Admin Dose 2 TAB; Start 07/23/17 at 21:00 Acetaminophen/ Hydrocodone Bitart ([place] (10/325)) 2 tab Q4H PRN PO PAIN Last administered on 07/31/17 06:36; Admin Dose 2 TAB; Start 07/24/17 at 14:30 Zolpidem Tartrate (Ambien) 5 mg HS PRN PO INSOMNIA Last administered on 21:39; Admin Dose 5 MG; Start 07/25/17 at 19:00 Oxycodone HCl (Oxycontin) 10 mg 0818 PO Last administered on 9/11/17at 08:51; Admin Dose 10 MG; Start 07/25/17 at 19:10 Assessment/Plan Chief Complaint/Hosp Course IMPRESSION: 1. Syncopal episode. 2. Right tibia-fibula fracture status post intramedullary nailing. 3. History of breast cancer. 4. History of essential hypertension. PLAN: 1. Continue pain control. Remove sutures today. 2. Continue PT. 3. Continue current antihypertensives. 4. DVT and GI prophylaxis. Problems: YUAN HARDY MD, [facility] Jul 31, 2017 12:38
[2017-07-31 14:00] VITALS: BP 93/50; RESP 18
[2017-07-31 20:00] VITALS: BP 109/61; RESP 18
[2017-07-31] MEDS: SENNA/DOCUSATE NA (8.6MG/50MG) TAB PO SCH (21:55)
[2017-07-31] MEDS: ATORVASTATIN 10 MG TAB PO SCH (21:55)
[2017-08-01] MEDS: ZOLPIDEM 5 MG TAB PO PRN ×2 (00:37→23:23)
[2017-08-01 00:42] VITALS: BP 136/78; PULSE 71; RESP 18
[2017-08-01 02:00] VITALS: BP 111/63; RESP 18
[2017-08-01] MEDS: HYDROCODONE/APAP (10/325) TAB PO PRN (05:09)
[2017-08-01 08:08] VITALS: BP 110/61; PULSE 71; RESP 18
[2017-08-01] MEDS: DULOXETINE 30 MG CAP DR PO SCH (08:39)
[2017-08-01] MEDS: ENOXAPARIN 40 MG/0.4 ML SYG SC SCH (08:39)
[2017-08-01] MEDS: CHOLECALCIFEROL 2,000 UNIT CAP PO SCH (08:40)
[2017-08-01] MEDS: oxyCODONE (CR) 10 MG TAB [oxyCONTIN] PO SCH ×2 (08:40→18:00)
[2017-08-01] MEDS: CALCIUM/VITAMIN D (500/200) TAB PO SCH ×2 (08:40→20:44)
[2017-08-01] MEDS: RANITIDINE 150 MG TAB PO SCH (08:40)
[2017-08-01] MEDS: DOCUSATE SODIUM 100 MG CAP PO SCH ×2 (08:40→20:44)
[2017-08-01] MEDS: LACTOBACILLUS RHAMNOSUS CAP PO SCH ×2 (08:40→20:44)
[2017-08-01] MEDS: ASPIRIN (EC) 81 MG TAB PO SCH (08:40)
[2017-08-01] MEDS: LETROZOLE 2.5 MG TAB PO SCH (08:40)
[2017-08-01] MEDS: HYDROmorphONE 1 MG/ML SYG IV PRN ×3 (10:45→21:56)
--- NOTE | 2017-08-01 12:27 | CONS ---
Date/Time of Note Date/Time of Note DATE: 08/01/17 TIME: 12:26 Consult Date/Type/Reason Admit Date/Time Jul 23, 2017 at 16:00 Type of Consultation: IM Subjective Comfortable, sutures out. Objective Vital Signs Date Time Temp Pulse Resp B/P Pulse Ox O2 Delivery O2 Flow Rate FiO2 08/01/17 08:08 98.6 71 18 110/61 98 Room Air Intake and Output 07/31/17 07/31/17 08/01/17 15:00 23:00 07:00 Intake Total 780 ml 300 ml Balance 780 ml 300 ml Exam GENERAL APPEARANCE: On examination, a well-nourished well-developed lady VITAL SIGNS: NECK: Supple. No JVD or lymphadenopathy. CARDIAC: S1, S2. No added sounds or murmurs. CHEST: Diminished air entry bilaterally. ABDOMEN: Soft, nontender. No guarding or rebound. EXTREMITIES: No signs of clubbing or edema. Right leg is elevated. Mild superior bruising around the ankle.Mild swelling. NEUROLOGIC: No neurological deficits Results/Medications Medications Current Medications Docusate Sodium (Colace) 100 mg BID PO Last administered on 08/01/17 08:40; Admin Dose 100 MG; Start 07/23/17 at 21:00 Acetaminophen (Tylenol Tab) 650 mg Q4H PRN PO PAIN; Start 07/23/17 at 18:30 Ondansetron HCl (Zofran Inj) 4 mg Q6H PRN IV NAUSEA AND/OR VOMITING; Start 07/23 at 18:30 Ranitidine HCl (Zantac) 150 mg DAILY PO Last administered on 08/01/17 08:40; Admin Dose 150 MG; Start 07/24/17 at 09:00 Duloxetine HCl (Cymbalta) 30 mg DAILY PO Last administered on 08/01/17 08:39; Admin Dose 30 MG; Start 07/24/17 at 09:00 Enoxaparin Sodium (Lovenox) 40 mg DAILY SC Last administered on 08/01/17 08:39 ; Admin Dose 40 MG; Start 07/24/17 at 09:00 Hydromorphone HCl (Dilaudid) 1 mg Q2H PRN IV PAIN Last administered on 10:45; Admin Dose 1 MG; Start 07/23/17 at 18:30 Lactobacillus Acidophilus/ Rhamnosus (Culturelle) 1 cap BID PO Last administered on 08/01/17 08:40; Admin Dose 1 CAP; Start 07/23/17 at 21:00 Letrozole (Femara) 2.5 mg DAILY PO Last administered on 08/01/17 08:40; Admin Dose 2.5 MG; Start 07/24/17 at 09:00 Acetaminophen (Tylenol Tab) 650 mg Q6H PRN PO FEVER; Start 07/23/17 at 18:30 Aspirin (Halfprin) 81 mg DAILY PO Last administered on 08/01/17 08:40; Admin Dose 81 MG; Start 07/24/17 at 09:00 Atorvastatin Calcium (Lipitor) 10 mg DAILY@21 PO Last administered on 21:55; Admin Dose 10 MG; Start 07/23/17 at 21:00 Bisacodyl (Dulcolax) 5 mg DAILY PRN PO CONTIPATION; Start 07/23/17 at 18:30 Calcium/Vitamin D (Oyster Shell/ Vit-D (500/200)) 1 tab BID PO Last administered on 08/01/17 08:40; Admin Dose 1 TAB; Start 07/23/17 at 21:00 Cholecalciferol (Vitamin D) 2,000 unit DAILY PO Last administered on 08/01/17 08:40; Admin Dose 2,000 UNIT; Start 07/24/17 at 09:00 Senna/Docusate Sodium (Senokot-S) 2 tab QHS PO Last administered on 07/31/17 21:55; Admin Dose 2 TAB; Start 07/23/17 at 21:00 Acetaminophen/ Hydrocodone Bitart ([place] (10/325)) 2 tab Q4H PRN PO PAIN Last administered on 08/01/17 05:09; Admin Dose 2 TAB; Start 07/24/17 at 14:30 Zolpidem Tartrate (Ambien) 5 mg HS PRN PO INSOMNIA Last administered on 00:37; Admin Dose 5 MG; Start 07/25/17 at 19:00 Oxycodone HCl (Oxycontin) 10 mg 18 PO Last administered on 08/01/17 08:40; Admin Dose 10 MG; Start 07/25/17 at 19:10 Assessment/Plan Chief Complaint/Hosp Course IMPRESSION: 1. Syncopal episode. 2. Right tibia-fibula fracture status post intramedullary nailing. 3. History of breast cancer. 4. History of essential hypertension. PLAN: 1. Continue pain control. 2. Continue PT. 3. Continue current antihypertensives. 4. DVT and GI prophylaxis. dc planning Problems: [facility], [facility] Aug 01, 2017 12:27
--- NOTE | 2017-08-01 12:30 | CONS ---
Date/Time of Note Date/Time of Note DATE: 08/01/17 TIME: 12:28 Consult Date/Type/Reason Admit Date/Time Jul 23, 2017 at 16:00 Type of Consultation: IM Subjective Overall improving Objective Lungs clear abdomen soft By assist ambulation Vital Signs Date Time Temp Pulse Resp B/P Pulse Ox O2 Delivery O2 Flow Rate FiO2 08/01/17 08:08 98.6 71 18 110/61 98 Room Air Intake and Output 07/31/17 07/31/17 08/01/17 15:00 23:00 07:00 Intake Total 780 ml 300 ml Balance 780 ml 300 ml Results/Medications Medications Current Medications Docusate Sodium (Colace) 100 mg BID PO Last administered on 08/01/17 08:40; Admin Dose 100 MG; Start 07/23/17 at 21:00 Acetaminophen (Tylenol Tab) 650 mg Q4H PRN PO PAIN; Start 07/23/17 at 18:30 Ondansetron HCl (Zofran Inj) 4 mg Q6H PRN IV NAUSEA AND/OR VOMITING; Start 07/23 at 18:30 Ranitidine HCl (Zantac) 150 mg DAILY PO Last administered on 08/01/17 08:40; Admin Dose 150 MG; Start 07/24/17 at 09:00 Duloxetine HCl (Cymbalta) 30 mg DAILY PO Last administered on 08/01/17 08:39; Admin Dose 30 MG; Start 07/24/17 at 09:00 Enoxaparin Sodium (Lovenox) 40 mg DAILY SC Last administered on 08/01/17 08:39 ; Admin Dose 40 MG; Start 07/24/17 at 09:00 Hydromorphone HCl (Dilaudid) 1 mg Q2H PRN IV PAIN Last administered on 10:45; Admin Dose 1 MG; Start 07/23/17 at 18:30 Lactobacillus Acidophilus/ Rhamnosus (Culturelle) 1 cap BID PO Last administered on 08/01/17 08:40; Admin Dose 1 CAP; Start 07/23/17 at 21:00 Letrozole (Femara) 2.5 mg DAILY PO Last administered on 08/01/17 08:40; Admin Dose 2.5 MG; Start 07/24/17 at 09:00 Acetaminophen (Tylenol Tab) 650 mg Q6H PRN PO FEVER; Start 07/23/17 at 18:30 Aspirin (Halfprin) 81 mg DAILY PO Last administered on 08/01/17 08:40; Admin Dose 81 MG; Start 07/24/17 at 09:00 Atorvastatin Calcium (Lipitor) 10 mg DAILY@21 PO Last administered on 21:55; Admin Dose 10 MG; Start 07/23/17 at 21:00 Bisacodyl (Dulcolax) 5 mg DAILY PRN PO CONTIPATION; Start 07/23/17 at 18:30 Calcium/Vitamin D (Oyster Shell/ Vit-D (500/200)) 1 tab BID PO Last administered on 08/01/17 08:40; Admin Dose 1 TAB; Start 07/23/17 at 21:00 Cholecalciferol (Vitamin D) 2,000 unit DAILY PO Last administered on 08/01/17 08:40; Admin Dose 2,000 UNIT; Start 07/24/17 at 09:00 Senna/Docusate Sodium (Senokot-S) 2 tab QHS PO Last administered on 07/31/17 21:55; Admin Dose 2 TAB; Start 07/23/17 at 21:00 Acetaminophen/ Hydrocodone Bitart ([place] (10/325)) 2 tab Q4H PRN PO PAIN Last administered on 08/01/17 05:09; Admin Dose 2 TAB; Start 07/24/17 at 14:30 Zolpidem Tartrate (Ambien) 5 mg HS PRN PO INSOMNIA Last administered on 00:37; Admin Dose 5 MG; Start 07/25/17 at 19:00 Oxycodone HCl (Oxycontin) 10 mg ,18 PO Last administered on 08/01/17 08:40; Admin Dose 10 MG; Start 07/25/17 at 19:10 Assessment/Plan Additional Assessment/Plan Rehab- Other orthopedic injury with right tibia and fibular fracture, status post ORIF. Steady functional gains with rehabilitative treatment plan. Acute pain syndrome- continue current meds Constipation-bowel program working Hypertension. Dyslipidemia. Osteoporosis. History of breast carcinoma. CARMEN MCGHEE MD Aug 01, 2017 12:30
[2017-08-01 14:44] VITALS: BP 115/70; RESP 20
[2017-08-01 20:00] VITALS: BP 116/64; RESP 18
[2017-08-01] MEDS: ATORVASTATIN 10 MG TAB PO SCH (20:44)
[2017-08-01] MEDS: SENNA/DOCUSATE NA (8.6MG/50MG) TAB PO SCH (20:44)
[2017-08-02 02:00] VITALS: BP 120/67; RESP 18
[2017-08-02 07:00] VITALS: BP 132/69; RESP 18
[2017-08-02] MEDS: HYDROmorphONE 1 MG/ML SYG IV PRN ×7 (07:35→19:19)
[2017-08-02] MEDS: DULOXETINE 30 MG CAP DR PO SCH (07:35)
[2017-08-02] MEDS: ASPIRIN (EC) 81 MG TAB PO SCH (07:35)
[2017-08-02] MEDS: ENOXAPARIN 40 MG/0.4 ML SYG SC SCH (07:40)
[2017-08-02] MEDS: oxyCODONE (CR) 10 MG TAB [oxyCONTIN] PO SCH ×2 (08:32→18:10)
[2017-08-02] MEDS: LETROZOLE 2.5 MG TAB PO SCH ×2 (09:00→22:23)
[2017-08-02] MEDS: HYDROCODONE/APAP (10/325) TAB PO PRN ×2 (09:36→22:22)
[2017-08-02] MEDS: CALCIUM/VITAMIN D (500/200) TAB PO SCH ×2 (09:36→22:22)
[2017-08-02] MEDS: CHOLECALCIFEROL 2,000 UNIT CAP PO SCH (09:39)
[2017-08-02] MEDS: RANITIDINE 150 MG TAB PO SCH (11:09)
[2017-08-02] MEDS: LACTOBACILLUS RHAMNOSUS CAP PO SCH ×2 (11:09→22:22)
[2017-08-02] MEDS: DOCUSATE SODIUM 100 MG CAP PO SCH ×2 (11:10→22:22)
--- NOTE | 2017-08-02 11:37 | CONS ---
Date/Time of Note Date/Time of Note DATE: 08/02/17 TIME: 11:37 Consult Date/Type/Reason Admit Date/Time Jul 23, 2017 at 16:00 Type of Consultation: IM Subjective Continues to slowly improve. Objective Vital Signs Date Time Temp Pulse Resp B/P Pulse Ox O2 Delivery O2 Flow Rate FiO2 08/02/17 07:00 98.2 73 18 132/69 96 08/01/17 08:08 Room Air Intake and Output 08/01/17 08/01/17 08/02/17 15:00 23:00 07:00 Intake Total 220 ml 480 ml 1000 ml Balance 220 ml 480 ml 1000 ml Exam GENERAL APPEARANCE: On examination, a well-nourished well-developed lady VITAL SIGNS: NECK: Supple. No JVD or lymphadenopathy. CARDIAC: S1, S2. No added sounds or murmurs. CHEST: Diminished air entry bilaterally. ABDOMEN: Soft, nontender. No guarding or rebound. EXTREMITIES: No signs of clubbing or edema. Right leg is elevated. Mild superior bruising around the ankle.Mild swelling. NEUROLOGIC: No neurological deficits Results/Medications Medications Current Medications Docusate Sodium (Colace) 100 mg BID PO Last administered on 08/02/17 11:10; Admin Dose 100 MG; Start 07/23/17 at 21:00 Acetaminophen (Tylenol Tab) 650 mg Q4H PRN PO PAIN; Start 07/23/17 at 18:30 Ondansetron HCl (Zofran Inj) 4 mg Q6H PRN IV NAUSEA AND/OR VOMITING; Start 07/23 at 18:30 Ranitidine HCl (Zantac) 150 mg DAILY PO Last administered on 08/02/17 11:09; Admin Dose 150 MG; Start 07/24/17 at 09:00 Duloxetine HCl (Cymbalta) 30 mg DAILY PO Last administered on 08/02/17 07:35; Admin Dose 30 MG; Start 07/24/17 at 09:00 Enoxaparin Sodium (Lovenox) 40 mg DAILY SC Last administered on 08/02/17 07:40 ; Admin Dose 40 MG; Start 07/24/17 at 09:00 Hydromorphone HCl (Dilaudid) 1 mg Q2H PRN IV PAIN Last administered on 11:09; Admin Dose 1 MG; Start 07/23/17 at 18:30 Lactobacillus Acidophilus/ Rhamnosus (Culturelle) 1 cap BID PO Last administered on 08/02/17 11:09; Admin Dose 1 CAP; Start 07/23/17 at 21:00 Letrozole (Femara) 2.5 mg DAILY PO Last administered on 08/01/17 08:40; Admin Dose 2.5 MG; Start 07/24/17 at 09:00 Acetaminophen (Tylenol Tab) 650 mg Q6H PRN PO FEVER; Start 07/23/17 at 18:30 Aspirin (Halfprin) 81 mg DAILY PO Last administered on 08/02/17 07:35; Admin Dose 81 MG; Start 07/24/17 at 09:00 Atorvastatin Calcium (Lipitor) 10 mg DAILY@21 PO Last administered on 20:44; Admin Dose 10 MG; Start 07/23/17 at 21:00 Bisacodyl (Dulcolax) 5 mg DAILY PRN PO CONTIPATION; Start 07/23/17 at 18:30 Calcium/Vitamin D (Oyster Shell/ Vit-D (500/200)) 1 tab BID PO Last administered on 08/02/17 09:36; Admin Dose 1 TAB; Start 07/23/17 at 21:00 Cholecalciferol (Vitamin D) 2,000 unit DAILY PO Last administered on 08/02/17 09:39; Admin Dose 2,000 UNIT; Start 07/24/17 at 09:00 Senna/Docusate Sodium (Senokot-S) 2 tab QHS PO Last administered on 08/01/17 20:44; Admin Dose 2 TAB; Start 07/23/17 at 21:00 Acetaminophen/ Hydrocodone Bitart ([place] (10/325)) 2 tab Q4H PRN PO PAIN Last administered on 08/02/17 09:36; Admin Dose 2 TAB; Start 07/24/17 at 14:30 Zolpidem Tartrate (Ambien) 5 mg HS PRN PO INSOMNIA Last administered on 23:23; Admin Dose 5 MG; Start 07/25/17 at 19:00 Oxycodone HCl (Oxycontin) 10 mg 08,18 PO Last administered on 08/02/17 08:32; Admin Dose 10 MG; Start 07/25/17 at 19:10 Assessment/Plan Chief Complaint/Hosp Course IMPRESSION: 1. Syncopal episode. 2. Right tibia-fibula fracture status post intramedullary nailing. 3. History of breast cancer. 4. History of essential hypertension. PLAN: 1. Continue pain control. 2. Continue PT. 3. Continue current antihypertensives. 4. DVT and GI prophylaxis. dc planning Problems: YUAN HARDY MD, [facility] Aug 02, 2017 11:37
--- NOTE | 2017-08-02 12:12 | CONS ---
Date/Time of Note Date/Time of Note DATE: 08/02/17 TIME: 12:11 Consult Date/Type/Reason Admit Date/Time Jul 23, 2017 at 16:00 Type of Consultation: IM Subjective Comfortable Objective pulm-cta sba ambulation Vital Signs Date Time Temp Pulse Resp B/P Pulse Ox O2 Delivery O2 Flow Rate FiO2 08/02/17 07:00 98.2 73 18 132/69 96 08/01/17 08:08 Room Air Intake and Output 08/01/17 08/01/17 08/02/17 15:00 23:00 07:00 Intake Total 220 ml 480 ml 1000 ml Balance 220 ml 480 ml 1000 ml Results/Medications Medications Current Medications Docusate Sodium (Colace) 100 mg BID PO Last administered on 08/02/17 11:10; Admin Dose 100 MG; Start 07/23/17 at 21:00 Acetaminophen (Tylenol Tab) 650 mg Q4H PRN PO PAIN; Start 07/23/17 at 18:30 Ondansetron HCl (Zofran Inj) 4 mg Q6H PRN IV NAUSEA AND/OR VOMITING; Start 07/23 at 18:30 Ranitidine HCl (Zantac) 150 mg DAILY PO Last administered on 08/02/17 11:09; Admin Dose 150 MG; Start 07/24/17 at 09:00 Duloxetine HCl (Cymbalta) 30 mg DAILY PO Last administered on 08/02/17 07:35; Admin Dose 30 MG; Start 07/24/17 at 09:00 Enoxaparin Sodium (Lovenox) 40 mg DAILY SC Last administered on 08/02/17 07:40 ; Admin Dose 40 MG; Start 07/24/17 at 09:00 Hydromorphone HCl (Dilaudid) 1 mg Q2H PRN IV PAIN Last administered on 11:09; Admin Dose 1 MG; Start 07/23/17 at 18:30 Lactobacillus Acidophilus/ Rhamnosus (Culturelle) 1 cap BID PO Last administered on 08/02/17 11:09; Admin Dose 1 CAP; Start 07/23/17 at 21:00 Letrozole (Femara) 2.5 mg DAILY PO Last administered on 08/01/17 08:40; Admin Dose 2.5 MG; Start 07/24/17 at 09:00 Acetaminophen (Tylenol Tab) 650 mg Q6H PRN PO FEVER; Start 07/23/17 at 18:30 Aspirin (Halfprin) 81 mg DAILY PO Last administered on 08/02/17 07:35; Admin Dose 81 MG; Start 07/24/17 at 09:00 Atorvastatin Calcium (Lipitor) 10 mg DAILY@21 PO Last administered on 20:44; Admin Dose 10 MG; Start 07/23/17 at 21:00 Bisacodyl (Dulcolax) 5 mg DAILY PRN PO CONTIPATION; Start 07/23/17 at 18:30 Calcium/Vitamin D (Oyster Shell/ Vit-D (500/200)) 1 tab BID PO Last administered on 08/02/17 09:36; Admin Dose 1 TAB; Start 07/23/17 at 21:00 Cholecalciferol (Vitamin D) 2,000 unit DAILY PO Last administered on 08/02/17 09:39; Admin Dose 2,000 UNIT; Start 07/24/17 at 09:00 Senna/Docusate Sodium (Senokot-S) 2 tab QHS PO Last administered on 08/01/17 20:44; Admin Dose 2 TAB; Start 07/23/17 at 21:00 Acetaminophen/ Hydrocodone Bitart ([place] (10/325)) 2 tab Q4H PRN PO PAIN Last administered on 08/02/17 09:36; Admin Dose 2 TAB; Start 07/24/17 at 14:30 Zolpidem Tartrate (Ambien) 5 mg HS PRN PO INSOMNIA Last administered on 23:23; Admin Dose 5 MG; Start 07/25/17 at 19:00 Oxycodone HCl (Oxycontin) 10 mg 08,18 PO Last administered on 08/02/17 08:32; Admin Dose 10 MG; Start 07/25/17 at 19:10 Assessment/Plan Additional Assessment/Plan Rehab- Other orthopedic injury with right tibia and fibular fracture, status post ORIF. Excellent progress, anticipate home at end of week. Acute pain syndrome- continue current meds Constipation-bowel program working Hypertension. Dyslipidemia. Osteoporosis. History of breast carcinoma. CARMEN MCGHEE MD Aug 02, 2017 12:12
[2017-08-02 14:00] VITALS: BP 113/68; RESP 18
[2017-08-02 20:00] VITALS: BP 130/64; RESP 18
[2017-08-02] MEDS: ZOLPIDEM 5 MG TAB PO PRN (22:22)
[2017-08-02] MEDS: SENNA/DOCUSATE NA (8.6MG/50MG) TAB PO SCH (22:22)
[2017-08-02] MEDS: ATORVASTATIN 10 MG TAB PO SCH (22:22)
[2017-08-03 02:00] VITALS: BP_SYST 125; BP_SYST 128; BP_DIAS 62; BP_DIAS 63; RESP 18
[2017-08-03] MEDS: HYDROCODONE/APAP (10/325) TAB PO PRN ×3 (06:22→20:49)
[2017-08-03] MEDS: ASPIRIN (EC) 81 MG TAB PO SCH (07:38)
[2017-08-03] MEDS: HYDROmorphONE 1 MG/ML SYG IV PRN ×6 (07:38→17:45)
[2017-08-03] MEDS: DULOXETINE 30 MG CAP DR PO SCH (07:38)
[2017-08-03] MEDS: CHOLECALCIFEROL 2,000 UNIT CAP PO SCH (07:38)
[2017-08-03] MEDS: LETROZOLE 2.5 MG TAB PO SCH (07:39)
[2017-08-03 07:44] VITALS: BP 112/60; RESP 18
[2017-08-03] MEDS: LACTOBACILLUS RHAMNOSUS CAP PO SCH ×2 (08:33→20:41)
[2017-08-03] MEDS: oxyCODONE (CR) 10 MG TAB [oxyCONTIN] PO SCH ×2 (08:33→17:45)
[2017-08-03] MEDS: RANITIDINE 150 MG TAB PO SCH (08:34)
[2017-08-03] MEDS: DOCUSATE SODIUM 100 MG CAP PO SCH ×2 (08:34→20:41)
[2017-08-03] MEDS: CALCIUM/VITAMIN D (500/200) TAB PO SCH ×2 (08:34→20:41)
[2017-08-03] MEDS: ENOXAPARIN 40 MG/0.4 ML SYG SC SCH (09:52)
--- NOTE | 2017-08-03 11:09 | CONS ---
Date/Time of Note Date/Time of Note DATE: 08/03/17 TIME: 11:08 Consult Date/Type/Reason Admit Date/Time Jul 23, 2017 at 16:00 Type of Consultation: IM Subjective Patient comfortable following physical therapy this morning. Continues to improve. Objective Vital Signs Date Time Temp Pulse Resp B/P Pulse Ox O2 Delivery O2 Flow Rate FiO2 08/03/17 07:44 98.2 65 18 112/60 95 08/01/17 08:08 Room Air Intake and Output 08/02/17 08/02/17 08/03/17 15:00 23:00 07:00 Intake Total 560 ml 850 ml Output Total 1 ml Balance 559 ml 850 ml Exam GENERAL APPEARANCE: On examination, a well-nourished well-developed lady VITAL SIGNS: NECK: Supple. No JVD or lymphadenopathy. CARDIAC: S1, S2. No added sounds or murmurs. CHEST: Diminished air entry bilaterally. ABDOMEN: Soft, nontender. No guarding or rebound. EXTREMITIES: No signs of clubbing or edema. Right leg is elevated. Mild superior bruising around the ankle.Mild swelling. NEUROLOGIC: No neurological deficits Results/Medications Medications Current Medications Docusate Sodium (Colace) 100 mg BID PO Last administered on 08/03/17 08:34; Admin Dose 100 MG; Start 07/23/17 at 21:00 Acetaminophen (Tylenol Tab) 650 mg Q4H PRN PO PAIN; Start 07/23/17 at 18:30 Ondansetron HCl (Zofran Inj) 4 mg Q6H PRN IV NAUSEA AND/OR VOMITING; Start 07/23 at 18:30 Ranitidine HCl (Zantac) 150 mg DAILY PO Last administered on 08/03/17 08:34; Admin Dose 150 MG; Start 07/24/17 at 09:00 Duloxetine HCl (Cymbalta) 30 mg DAILY PO Last administered on 08/03/17 07:38; Admin Dose 30 MG; Start 07/24/17 at 09:00 Enoxaparin Sodium (Lovenox) 40 mg DAILY SC Last administered on 08/03/17 09:52 ; Admin Dose 40 MG; Start 07/24/17 at 09:00 Hydromorphone HCl (Dilaudid) 1 mg Q2H PRN IV PAIN Last administered on 09:46; Admin Dose 1 MG; Start 07/23/17 at 18:30 Lactobacillus Acidophilus/ Rhamnosus (Culturelle) 1 cap BID PO Last administered on 08/03/17 08:33; Admin Dose 1 CAP; Start 07/23/17 at 21:00 Letrozole (Femara) 2.5 mg DAILY PO Last administered on 08/03/17 07:39; Admin Dose 2.5 MG; Start 07/24/17 at 09:00 Acetaminophen (Tylenol Tab) 650 mg Q6H PRN PO FEVER; Start 07/23/17 at 18:30 Aspirin (Halfprin) 81 mg DAILY PO Last administered on 08/03/17 07:38; Admin Dose 81 MG; Start 07/24/17 at 09:00 Atorvastatin Calcium (Lipitor) 10 mg DAILY@21 PO Last administered on 22:22; Admin Dose 10 MG; Start 07/23/17 at 21:00 Bisacodyl (Dulcolax) 5 mg DAILY PRN PO CONTIPATION; Start 07/23/17 at 18:30 Calcium/Vitamin D (Oyster Shell/ Vit-D (500/200)) 1 tab BID PO Last administered on 08/03/17 08:34; Admin Dose 1 TAB; Start 07/23/17 at 21:00 Cholecalciferol (Vitamin D) 2,000 unit DAILY PO Last administered on 08/03/17 07:38; Admin Dose 2,000 UNIT; Start 07/24/17 at 09:00 Senna/Docusate Sodium (Senokot-S) 2 tab QHS PO Last administered on 08/02/17 22:22; Admin Dose 2 TAB; Start 07/23/17 at 21:00 Acetaminophen/ Hydrocodone Bitart ([place] (10/325)) 2 tab Q4H PRN PO PAIN Last administered on 08/03/17 06:22; Admin Dose 2 TAB; Start 07/24/17 at 14:30 Zolpidem Tartrate (Ambien) 5 mg HS PRN PO INSOMNIA Last administered on 22:22; Admin Dose 5 MG; Start 07/25/17 at 19:00 Oxycodone HCl (Oxycontin) 10 mg 08,18 PO Last administered on 08/03/17 08:33; Admin Dose 10 MG; Start 07/25/17 at 19:10 Assessment/Plan Chief Complaint/Hosp Course IMPRESSION: 1. Syncopal episode. 2. Right tibia-fibula fracture status post intramedullary nailing. 3. History of breast cancer. 4. History of essential hypertension. PLAN: 1. Continue pain control. 2. Continue PT. 3. Continue current antihypertensives. 4. DVT and GI prophylaxis. Repeat labs for a.m. dc planning Problems: YUAN HARDY MD, [facility] Aug 03, 2017 11:09
--- NOTE | 2017-08-03 13:36 | CONS ---
Date/Time of Note Date/Time of Note DATE: 08/03/17 TIME: 13:35 Consult Date/Type/Reason Admit Date/Time Jul 23, 2017 at 16:00 Type of Consultation: IM Subjective Doing very well Objective pulm-cta sba ambulation Vital Signs Date Time Temp Pulse Resp B/P Pulse Ox O2 Delivery O2 Flow Rate FiO2 08/03/17 07:44 98.2 65 18 112/60 95 08/01/17 08:08 Room Air Intake and Output 08/02/17 08/02/17 08/03/17 15:00 23:00 07:00 Intake Total 560 ml 850 ml Output Total 1 ml Balance 559 ml 850 ml Results/Medications Medications Current Medications Docusate Sodium (Colace) 100 mg BID PO Last administered on 08/03/17 08:34; Admin Dose 100 MG; Start 07/23/17 at 21:00 Acetaminophen (Tylenol Tab) 650 mg Q4H PRN PO PAIN; Start 07/23/17 at 18:30 Ondansetron HCl (Zofran Inj) 4 mg Q6H PRN IV NAUSEA AND/OR VOMITING; Start 07/23 at 18:30 Ranitidine HCl (Zantac) 150 mg DAILY PO Last administered on 08/03/17 08:34; Admin Dose 150 MG; Start 07/24/17 at 09:00 Duloxetine HCl (Cymbalta) 30 mg DAILY PO Last administered on 08/03/17 07:38; Admin Dose 30 MG; Start 07/24/17 at 09:00 Enoxaparin Sodium (Lovenox) 40 mg DAILY SC Last administered on 08/03/17 09:52 ; Admin Dose 40 MG; Start 07/24/17 at 09:00 Hydromorphone HCl (Dilaudid) 1 mg Q2H PRN IV PAIN Last administered on 13:30; Admin Dose 1 MG; Start 07/23/17 at 18:30 Lactobacillus Acidophilus/ Rhamnosus (Culturelle) 1 cap BID PO Last administered on 08/03/17 08:33; Admin Dose 1 CAP; Start 07/23/17 at 21:00 Letrozole (Femara) 2.5 mg DAILY PO Last administered on 08/03/17 07:39; Admin Dose 2.5 MG; Start 07/24/17 at 09:00 Acetaminophen (Tylenol Tab) 650 mg Q6H PRN PO FEVER; Start 07/23/17 at 18:30 Aspirin (Halfprin) 81 mg DAILY PO Last administered on 08/03/17 07:38; Admin Dose 81 MG; Start 07/24/17 at 09:00 Atorvastatin Calcium (Lipitor) 10 mg DAILY@21 PO Last administered on 22:22; Admin Dose 10 MG; Start 07/23/17 at 21:00 Bisacodyl (Dulcolax) 5 mg DAILY PRN PO CONTIPATION; Start 07/23/17 at 18:30 Calcium/Vitamin D (Oyster Shell/ Vit-D (500/200)) 1 tab BID PO Last administered on 08/03/17 08:34; Admin Dose 1 TAB; Start 07/23/17 at 21:00 Cholecalciferol (Vitamin D) 2,000 unit DAILY PO Last administered on 08/03/17 07:38; Admin Dose 2,000 UNIT; Start 07/24/17 at 09:00 Senna/Docusate Sodium (Senokot-S) 2 tab QHS PO Last administered on 08/02/17 22:22; Admin Dose 2 TAB; Start 07/23/17 at 21:00 Acetaminophen/ Hydrocodone Bitart ([place] (10/325)) 2 tab Q4H PRN PO PAIN Last administered on 08/03/17 12:04; Admin Dose 2 TAB; Start 07/24/17 at 14:30 Zolpidem Tartrate (Ambien) 5 mg HS PRN PO INSOMNIA Last administered on 22:22; Admin Dose 5 MG; Start 07/25/17 at 19:00 Oxycodone HCl (Oxycontin) 10 mg 08,18 PO Last administered on 08/03/17 08:33; Admin Dose 10 MG; Start 07/25/17 at 19:10 Assessment/Plan Additional Assessment/Plan Rehab- Other orthopedic injury with right tibia and fibular fracture, status post ORIF. Steady rehab progress, anticipate home tomorrow Acute pain syndrome- continue current meds Constipation-bowel program working Hypertension. Dyslipidemia. Osteoporosis. History of breast carcinoma. CARMEN MCGHEE MD Aug 03, 2017 13:36
[2017-08-03 20:00] VITALS: BP 125/70; PULSE 80; RESP 18
[2017-08-03 20:16] VITALS: BP 125/70; RESP 18
[2017-08-03] MEDS: ATORVASTATIN 10 MG TAB PO SCH (20:41)
[2017-08-03] MEDS: SENNA/DOCUSATE NA (8.6MG/50MG) TAB PO SCH (20:44)
[2017-08-03] MEDS: ZOLPIDEM 5 MG TAB PO PRN (22:16)
[2017-08-04 02:00] VITALS: BP 128/65; RESP 18
[2017-08-04] MEDS: HYDROCODONE/APAP (10/325) TAB PO PRN ×2 (05:01→11:59)
[2017-08-04 06:57] LABS: BASOPHILS % 0.2 % (0.0-2.0); EOSINOPHILS # 0.1 10^3/ul (0.0-0.5); EOSINOPHILS % 1.2 % (0.0-7.0); HEMATOCRIT 30.4 % (37.0-47.0); HEMOGLOBIN 9.6 g/dl (12.0-16.0); LYMPHOCYTES # 1.7 10^3/ul (0.8-2.9); LYMPHOCYTES % 34.6 % (15.0-51.0); MEAN CORPUSCULAR HEMOGLOBIN 26.4 pg (29.0-33.0); MEAN CORPUSCULAR HGB CONC 31.6 g/dl (32.0-37.0); MEAN CORPUSCULAR VOLUME 83.7 fl (82.0-101.0); MEAN PLATELET VOLUME 9.5 fl (7.4-10.4); MONOCYTE # 0.5 10^3/ul (0.3-0.9); MONOCYTES % 9.8 % (0.0-11.0); NEUTROPHIL # 2.6 10^3/ul (1.6-7.5); NEUTROPHILS % 53.8 % (39.0-77.0); PLATELET COUNT 318 10^3/UL (140-415); RED BLOOD COUNT 3.63 10^6/ul (4.20-5.40); RED CELL DISTRIBUTION WIDTH 12.6 % (11.5-14.5); WHITE BLOOD COUNT 4.9 10^3/ul (4.8-10.8)
[2017-08-04 07:31] LABS: CALCIUM 9.6 mg/dl (8.4-10.2); CREATININE 0.66 mg/dl (0.44-1.00); MAGNESIUM 1.7 mg/dl (1.7-2.5); PHOSPHORUS 4.7 mg/dl (2.5-4.9); POTASSIUM 4.1 mmol/L (3.5-5.1)
[2017-08-04] MEDS: oxyCODONE (CR) 10 MG TAB [oxyCONTIN] PO SCH (08:00)
[2017-08-04 08:53] VITALS: BP 122/88; PULSE 69; RESP 18
[2017-08-04] MEDS: CALCIUM/VITAMIN D (500/200) TAB PO SCH (09:35)
[2017-08-04] MEDS: ASPIRIN (EC) 81 MG TAB PO SCH (09:35)
[2017-08-04] MEDS: LACTOBACILLUS RHAMNOSUS CAP PO SCH (09:35)
[2017-08-04] MEDS: DULOXETINE 30 MG CAP DR PO SCH (09:35)
[2017-08-04] MEDS: DOCUSATE SODIUM 100 MG CAP PO SCH (09:35)
[2017-08-04] MEDS: RANITIDINE 150 MG TAB PO SCH (09:35)
[2017-08-04] MEDS: CHOLECALCIFEROL 2,000 UNIT CAP PO SCH (09:36)
[2017-08-04] MEDS: LETROZOLE 2.5 MG TAB PO SCH (09:37)
[2017-08-04] MEDS: ENOXAPARIN 40 MG/0.4 ML SYG SC SCH (09:37)
--- NOTE | 2017-08-04 13:06 | DS ---
Date/Time of Note Date/Time of Note DATE: 08/04/17 TIME: 13:04 Discharge Summary Admission/Discharge Info Admit Date/Time Jul 23, 2017 at 16:00 Discharge Date/Time Discharge Diagnosis 1. Other orthopedic injury with right tibia and fibular fracture, status post ORIF. 2. Hypertension. 3. Dyslipidemia. 4. Osteoporosis. 5. History of breast carcinoma. 6. Improvements in self-care and mobility. Patient Condition: Good Hospital Course Patient was admitted for interdisciplinary rehab. She made steady functional gains from a mod assist to a supervised level, including ambulation over 150 feet with a FWW. She is being home with the recommendation of home health PT and OT. She will follow up with her PMD. Home Meds Active Scripts Sennosides/Docusate Sodium (Senna Plus Tablet) 1 Each Tablet, 2 TAB PO HS for 7 Days, TAB Prov:INEZ DOWNEY MD 07/22/17 Acetaminophen (MAPAP) 325 Mg Tablet, 650 MG PO Q6H Y for PAIN LEVEL 1-3 OR FEVER for 10 Days, TAB Prov:INEZ DOWNEY MD 07/22/17 [Hydrocodone/Apap (10/325)] 1 TAB TAB No Conflict Check, 1 TAB PO Q4H Y for PAIN for 10 Days Prov:INEZ DOWNEY MD 07/22/17 Enoxaparin Sodium (Enoxaparin Sodium) 40 Mg/0.4 Ml Syringe, 40 MG SC DAILY for 14 Days Prov:INEZ DOWNEY MD 07/22/17 Reported Medications Alendronate Sodium* (Fosamax*) 70 Mg Tablet, 70 MG PO EVERY MONDAY, #4 TAB 07/15/17 Cholecalciferol (Vitamin D3) 1,000 Unit Capsule, 2000 UNIT PO DAILY, CAP 07/15/17 Duloxetine Hcl* (Cymbalta*) 30 Mg Capsule.dr, 30 MG PO DAILY, CAP 07/15/17 Letrozole* (Letrozole*) 2.5 Mg Tablet, 2.5 MG PO DAILY, TAB 07/15/17 Aspirin (Low Dose Aspirin) 81 Mg Tablet.dr, 81 MG PO DAILY, #30 TAB 07/15/17 Pravastatin Sodium* (Pravastatin Sodium*) 10 Mg Tablet, 10 MG PO HS, TAB 07/15/17 Ranitidine Hcl* (Ranitidine Hcl*) 150 Mg Tablet, 150 MG PO Q12, #60 TAB 07/15/17 Lisinopril* (Lisinopril*) 5 Mg Tablet, 5 MG PO DAILY, #30 TAB 07/15/17 Calcium Carbonate/Vitamin D3 (OYSTER SHELL 500 MG + VIT D TB) 1 Each Tablet, 1 EACH PO BID, TAB 07/15/17 Primary Care Provider Not On Staff Doctor Pending Labs Laboratory Tests Test 08/04/17 06:27 White Blood Count 4.910^3/ul (4.8-10.8) Red Blood Count 3.6310^6/ul (4.20-5.40) Hemoglobin 9.6g/dl (12.0-16.0) Hematocrit 30.4% (37.0-47.0) Mean Corpuscular Volume 83.7fl (82.0-101.0) Mean Corpuscular Hemoglobin 26.4pg (29.0-33.0) Mean Corpuscular Hemoglobin Concent 31.6g/dl (32.0-37.0) Red Cell Distribution Width 12.6% (11.5-14.5) Platelet Count 43583^3/UL (140-415) Mean Platelet Volume 9.5fl (7.4-10.4) Neutrophils % 53.8% (39.0-77.0) Lymphocytes % 34.6% (15.0-51.0) Monocytes % 9.8% (0.0-11.0) Eosinophils % 1.2% (0.0-7.0) Basophils % 0.2% (0.0-2.0) Nucleated Red Blood Cells % 0.0/100WBC (0.0-0.0) Neutrophils # 2.610^3/ul (1.6-7.5) Lymphocytes # 1.710^3/ul (0.8-2.9) Monocytes # 0.510^3/ul (0.3-0.9) Eosinophils # 0.110^3/ul (0.0-0.5) Basophils # 0.010^3/ul (0.0-0.1) Nucleated Red Blood Cells # 0.010^3/ul (0.0-0.0) Sodium Level 138mmol/L (135-144) Potassium Level 4.1mmol/L (3.5-5.1) Chloride Level 103mmol/L (97-110) Carbon Dioxide Level 28mmol/L (21-31) Anion Gap 11 (8-16) Blood Urea Nitrogen 18mg/dl (7-20) Creatinine 0.66mg/dl (0.44-1.00) Glucose Level 102mg/dl (70-220) Calcium Level 9.6mg/dl (8.4-10.2) Phosphorus Level 4.7mg/dl (2.5-4.9) Magnesium Level 1.7mg/dl (1.7-2.5) CARMEN MCGHEE MD Aug 04, 2017 13:06
--- NOTE | 2017-08-04 14:47 | CONS ---
Date/Time of Note Date/Time of Note DATE: 08/04/17 TIME: 14:45 Assessment/Plan Assessment/Plan Additional Assessment/Plan Assessment and plan : 1. Patient admitted for syncopal episode with interval resolution. 2. History of breast cancer. 3. History of right tibia and fibula fracture status post nailing. 4. Hypertension. 5. History of CVA. Continue current treatment. Patient to be discharged today. Consultation Date/Type/Reason Admit Date/Time Jul 23, 2017 at 16:00 Initial Consult Date Type of Consultation: IM 24 HR Interval Summary Free Text/Dictation This is an internal medicine progress note. Patient was evaluated at 11:30 AM. Patient is doing fairly well denies any shortness of breath, chest pain Patient currently is being evaluated for discharge. General exam; elderly woman, awake and alert. Currently in no distress. Exam/Review of Systems Vital Signs Vitals Vital Signs Date Time Temp Pulse Resp B/P Pulse Ox O2 Delivery O2 Flow Rate FiO2 08/04/17 08:53 98.5 69 18 122/88 96 Room Air Intake and Output 08/03/17 08/03/17 08/04/17 15:00 23:00 07:00 Intake Total 300 ml 970 ml 550 ml Balance 300 ml 970 ml 550 ml Exam HEENT exam; supple neck, no JVD JVD. No lymphadenopathy. Midline trachea. No thyromegaly. Pharynx is clear. Chest exam; clear to auscultation. S1-S2 audible, no murmurs. Regular rhythm. Abdomen exam; soft, nontender. No organomegaly. Bowel sounds audible. Extremity exam; no peripheral edema. TABLE HAND exam; patient has left-sided CVA. Results Result Diagram: 08/04/17 0627 08/04/17 0627 Results 24 hrs Laboratory Tests Test 08/04/17 06:27 White Blood Count 4.9 # Red Blood Count 3.63 L Hemoglobin 9.6 L Hematocrit 30.4 L Mean Corpuscular Volume 83.7 Mean Corpuscular Hemoglobin 26.4 L Mean Corpuscular Hemoglobin Concent 31.6 L Red Cell Distribution Width 12.6 Platelet Count 318 Mean Platelet Volume 9.5 Neutrophils % 53.8 Lymphocytes % 34.6 Monocytes % 9.8 Eosinophils % 1.2 Basophils % 0.2 Nucleated Red Blood Cells % 0.0 Neutrophils # 2.6 Lymphocytes # 1.7 Monocytes # 0.5 Eosinophils # 0.1 Basophils # 0.0 Nucleated Red Blood Cells # 0.0 Sodium Level 138 Potassium Level 4.1 Chloride Level 103 Carbon Dioxide Level 28 Anion Gap 11 Blood Urea Nitrogen 18 Creatinine 0.66 Glucose Level 102 Calcium Level 9.6 Phosphorus Level 4.7 Magnesium Level 1.7 HEDY PRESTON Aug 04, 2017 14:47
== END 2017-08-04 14:00 | disposition home health service (06) | DRG 561 ==
LOC: VRC 16:00
PROVIDERS: ADMIT Physical Medicine & Rehabilitation; ATTEND Internal Medicine Pulmonary Disease
PROC: F07Z5ZZ Bed Mobility Treatment (ICD-10-PCS; principal; 2017-07-23)
PROC: F08Z2ZZ Grooming/Personal Hygiene Treatment (ICD-10-PCS; 2017-07-23)
DX: S82.241D Displaced spiral fracture of shaft of right tibia, subsequent encounter for closed fracture with routine healing (principal); I10 Essential (primary) hypertension; E78.5 Hyperlipidemia, unspecified; I48.0 Paroxysmal atrial fibrillation; R55 Syncope and collapse; G89.18 Other acute postprocedural pain; S82.441D Displaced spiral fracture of shaft of right fibula, subsequent encounter for closed fracture with routine healing; K59.00 Constipation, unspecified; Z79.82 Long term (current) use of aspirin; Z85.3 Personal history of malignant neoplasm of breast; W18.30XD Fall on same level, unspecified, subsequent encounter; Z86.73 Personal history of transient ischemic attack (TIA), and cerebral infarction without residual deficits
CPT/HCPCS: 73590; 80048; 80053; 81003; 82962; 83735; 84100; 85025; 87081; 87086; 93971; 97110; 97112; 97116; 97150; 97163; 97167; 97530; 97535; 97542; J1170; J1650

== ENCOUNTER 2018-09-27 10:01 | Emergency (ER) | END 2018-09-27 14:26 | disposition short-term general hospital (02) ==

== ENCOUNTER 2019-05-02 20:15 | Emergency (ER) | payer MEDICARE, OTHER ==
[~2019-05-02] VITALS: Ht 165.1 cm; Wt 75.0 kg
[~2019-05-02 20:15] MED LIST changes: -ALEN70TA30 PO; +ALEN70TA5 PO; -ASPI-664 PO; +ASPI81TA52 PO; -CALC-277 PO; +CALC1TAB93 PO; +SENN-205 PO; -SENN-88 PO
[2019-05-02 20:20] VITALS: Ht 165.1 cm; Wt 75.0 kg
[2019-05-02] MEDS ORDERED: LORAZEPAM 1 MG TAB PO ONE (20:30)
[2019-05-02] MEDS ORDERED: LORA1TAB PO (21:34)
--- NOTE | 2019-05-02 21:35 | ERD ---
ER Documentation Chief Complaint Chief Complaint bib ra from home for generalized weakness and anxiety, brother passing HPI Patient is a 64-year-old female with a history of panic attacks and hypertension who presents with weakness. The patient was brought in by ambulance. Her brother on April 02 and she has been even more anxious and depressed since then. She is tearful during the history and physical exam. The who is with her says that over the past 2 to 3 days the symptoms have been worse. She denies suicidal or homicidal ideation. Upon review of old medical records this is the patient's fourth visit to the ER since 2016. She does have a primary doctor. ROS All systems reviewed and are negative except as per history of present illness. Medications Home Meds Active Scripts Lorazepam* (Lorazepam*) 1 Mg Tablet, 1 MG PO Q8, #6 TAB Prov:KATHERIN BROWN MD 05/02/19 Sennosides/Docusate Sodium (Senna Plus Tablet) 1 Each Tablet, 2 TAB PO HS for 7 Days, TAB Prov:INEZ DOWNEY MD 07/22/17 Acetaminophen (MAPAP) 325 Mg Tablet, 650 MG PO Q6H PRN for PAIN LEVEL 1-3 OR FEVER for 10 Days, TAB Prov:INEZ DOWNEY MD 07/22/17 [Hydrocodone/Apap (10/325)] 1 TAB TAB No Conflict Check, 1 TAB PO Q4H PRN for PAIN for 10 Days Prov:INEZ DOWNEY MD 07/22/17 Enoxaparin Sodium (Enoxaparin Sodium) 40 Mg/0.4 Ml Syringe, 40 MG SC DAILY for 14 Days Prov:INEZ DOWNEY MD 07/22/17 Reported Medications Alendronate Sodium* (Fosamax*) 70 Mg Tablet, 70 MG PO EVERY MONDAY, #4 TAB 07/15/17 Cholecalciferol (Vitamin D3) 1,000 Unit Capsule, 2000 UNIT PO DAILY, CAP 07/15/17 Duloxetine Hcl* (Cymbalta*) 30 Mg Capsule.dr, 30 MG PO DAILY, CAP 07/15/17 Letrozole* (Letrozole*) 2.5 Mg Tablet, 2.5 MG PO DAILY, TAB 07/15/17 Aspirin (Low Dose Aspirin) 81 Mg Tablet.dr, 81 MG PO DAILY, #30 TAB 07/15/17 Pravastatin Sodium* (Pravastatin Sodium*) 10 Mg Tablet, 10 MG PO HS, TAB 07/15/17 Ranitidine Hcl* (Ranitidine Hcl*) 150 Mg Tablet, 150 MG PO Q12, #60 TAB 07/15/17 Lisinopril* (Lisinopril*) 5 Mg Tablet, 5 MG PO DAILY, #30 TAB 07/15/17 Calcium Carbonate/Vitamin D3 (OYSTER SHELL 500 MG + VIT D TB) 1 Each Tablet, 1 EACH PO BID, TAB 07/15/17 Allergies Allergies: Coded Allergies: No Known Allergy (Unverified , 09/27/18) PMhx/Soc History of Surgery: Yes (s/p ORIF Rt tibia, left lumpectomy) Anesthesia Reaction: No Hx Neurological Disorder: No Hx Respiratory Disorders: No Hx Cardiac Disorders: Yes (HTN) Hx Psychiatric Problems: Yes (Depression 03/2019 after of 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 Neck: Full range of motion. No meningismus. Resp: Clear to auscultation bilaterally Cardio: Regular rate and rhythm, no murmurs Abd: Soft, non tender, non distended. Normal bowel sounds Skin: No petechiae or rashes Back: No midline or flank tenderness Ext: No cyanosis, or edema Neur: Awake and alert Psych: Anxious and tearful, no suicidal or homicidal ideation Results 24 hrs Current Medications Medications Dose Sig/Romeo Start Time Status Last (Trade) Ordered Route PRN Stop Time Admin Dose Reason Admin Lorazepam 1 mg ONCE ONCE 05/02/19 DC 05/02/19 (Ativan) PO 20:30 20:42 05/02/19 20:31 Procedures/MDM EKG read by me: Rate/Rhythm: Regular rate and rhythm at a rate of 68 Intervals: Normal Impression: No evidence of ischemia or arrhythmia Patient is a 64-year-old female presents with what appears to be acute grief reaction and panic attack. The patient feels better after Ativan. EKG shows no signs of ischemia or arrhythmia. Physical exam was normal I doubt stroke, mass, or other serious etiology. The patient will be given a short course of Ativan to go home with. The patient should follow-up closely with the primary doctor within 24 to 48 hours. The patient can return sooner for any worsening sy mptoms. Departure Diagnosis: Primary Impression: Grief reaction Condition: Fair Patient Instructions: Grief Reaction Referrals: Dr. Abreu Additional Instructions: Call your primary care doctor TOMORROW for an appointment during the next 1-2 days.See the doctor sooner or return here if your condition worsens before your appointment time. KATHERIN BROWN MD May 02, 2019 21:35
[2019-05-02 21:56] VITALS: BP 135/92; PULSE 80; RESP 19
== END 2019-05-02 21:59 | disposition home or self-care (01) ==
LOC: E/R 20:15
DX: F43.20 Adjustment disorder, unspecified (principal); I10 Essential (primary) hypertension; Z79.82 Long term (current) use of aspirin; Z85.3 Personal history of malignant neoplasm of breast
CPT/HCPCS: 93005

== ENCOUNTER 2019-07-11 15:03 | Emergency (ER) | payer MEDICARE, OTHER ==
[~2019-07-11] VITALS: Ht 162.6 cm; Wt 69.1 kg
[~2019-07-11 15:03] MED LIST changes: +LORA1TAB PO
[2019-07-11 15:07] VITALS: Ht 162.6 cm; Wt 69.1 kg
[2019-07-11] MEDS ORDERED: SOD CHLORIDE 0.9% 500 ML IV STA (15:49)
[2019-07-11] MEDS ORDERED: KETOROLAC 15 MG INJ IV STA (16:27)
[2019-07-11] MEDS ORDERED: ACETAMINOPHEN 325 MG TAB PO ONE (16:30)
[2019-07-11 17:41] VITALS: BP 129/72; PULSE 72; RESP 17
== END 2019-07-11 18:05 | disposition home or self-care (01) ==
LOC: E/R 15:03
DX: F41.1 Generalized anxiety disorder (principal); D64.9 Anemia, unspecified; R20.2 Paresthesia of skin; R51 Headache; I10 Essential (primary) hypertension; Z79.82 Long term (current) use of aspirin; Z85.3 Personal history of malignant neoplasm of breast
CPT/HCPCS: 36415; 71045; 80048; 82962; 84484; 85025; 93005; 96361; 96374; 99285; J1885; J7040